=== PATIENT | female | born 1975 | race Caucasian/White ===

== ENCOUNTER 2016-10-03 16:18 | Emergency (ER) | payer OTHER ==
[~2016-10-03] VITALS: Ht 160 cm; Wt 39.0 kg
[~2016-10-03 16:18] MED LIST: MULTIVIT PO; OYST500T PO
[2016-10-03] MEDS ORDERED: MAGNESIUM OTC (16:46)
[2016-10-03 17:32] LABS: MEAN CORPUSCULAR HEMOGLOBIN 34.4 pg (27.0-33.0); MEAN CORPUSCULAR HGB CONC 33.6 g/dl (32.0-36.5); MEAN CORPUSCULAR VOLUME 102.3 fl (80.0-96.0); RED CELL DISTRIBUTION WIDTH 11.7 % (11.5-14.5); WHITE BLOOD COUNT 3.7 K/mm3 (4.0-10.0)
[2016-10-03 17:46] LABS: CONTROL LINE HCG INT CTR LINE PRESENT
[2016-10-03 17:48] LABS: MAGNESIUM LEVEL 2.3 MG/DL (1.8-2.4); PHOSPHORUS LEVEL 3.6 MG/DL (2.5-4.9)
[2016-10-03 17:50] LABS: METHADONE URINE NEGATIVE (NEGATIVE)
[2016-10-03 18:00] LABS: ALBUMIN 3.9 GM/DL (3.2-5.2); ALBUMIN/GLOBULIN RATIO 1.34 (1.00-1.93); ALKALINE PHOSPHATASE 64 U/L (45-117); ALT/SGPT 43 U/L (12-78); ANION GAP 6 MEQ/L (8-16); AST/SGOT 29 U/L (15-37); BILIRUBIN,DIRECT 0.1 MG/DL (0.0-0.2); BILIRUBIN,TOTAL 0.3 MG/DL (0.2-1.0); BLOOD UREA NITROGEN 6 MG/DL (7-18); CALCIUM LEVEL 8.7 MG/DL (8.5-10.1); CARBON DIOXIDE LEVEL 29 MEQ/L (21-32); CHLORIDE LEVEL 101 MEQ/L (98-107); CREATININE FOR GFR 0.52 MG/DL (0.55-1.02); GLOMERULAR FILTRATION RATE > 60.0 (>60); GLUCOSE, FASTING 76 MG/DL (70-105); POTASSIUM SERUM 4.5 MEQ/L (3.5-5.1); SODIUM LEVEL 136 MEQ/L (136-145); TOTAL PROTEIN 6.8 GM/DL (6.4-8.2)
[2016-10-03 21:16] VITALS: BP 108/63
== END 2016-10-03 21:17 | disposition home or self-care (01) ==
LOC: EDBD 16:18 → M ED 16:58
DX: F32.9 Major depressive disorder, single episode, unspecified (principal); M32.9 Systemic lupus erythematosus, unspecified; G89.29 Other chronic pain; Z79.899 Other long term (current) drug therapy
CPT/HCPCS: 36415; 80048; 80076; 80306; 83735; 84100; 84443; 84703; 85027; 99284; G0480

== ENCOUNTER → 2016-11-27 | Outpatient (CLI) | payer OTHER ==
[~2016-11-27] MED LIST changes: +MAGNESIUM OTC
--- NOTE | 2016-11-27 16:07 | REPMRS ---
Patient History The patient states she had a clinical breast exam in November 2016.Patient is postmenopausal. No known family history of cancer. Digital Mammo Screening Bilat: November 27, 2016 - Exam #: [id number] Bilateral CC and MLO view(s) were taken. Technologist: Sandy Hernandez, Technologist Prior study comparison: November 12, 2009, digital bilateral screening mammo, performed at [facility]. FINDINGS: The breast tissue is heterogeneously dense. This may lower the sensitivity of mammography. The breasts are smaller bilaterally than on the 2010 prior study consistent with interval weight loss. There is a moderate amount of heterogeneously dense fibroglandular tissue which is fairly symmetric. There is no interval development of dominant mass, architectural distortion, or clustered microcalcification typical of malignancy. There has been no change in the appearance of the mammogram from the prior studies. ASSESSMENT: BI-RADS/ACR category 1 mammogram. Negative. Recommendation Routine screening mammogram in 1 year (for women over age 40). This mammogram was interpreted with the aid of an FDA-approved computer-aided dectection system. Electronically Signed By: Alfredo Dean MD 11/27/16 [id number]
== END ==
LOC: M RAD 14:06
PROVIDERS: ATTEND Midwife
DX: Z12.31 Encounter for screening mammogram for malignant neoplasm of breast (principal)

== ENCOUNTER 2016-12-13 15:12 | Emergency (ER) | payer OTHER ==
[~2016-12-13] VITALS: Ht 160 cm; Wt 42.3 kg
[2016-12-13] MEDS ORDERED: MORPHINE 2 MG/ML 1ML SYRINGE IV ONE (16:15)
[2016-12-13] MEDS ORDERED: NS 500 ML IV ONE (16:15)
[2016-12-13 16:44] LABS: BASO # 0.1 K/mm3 (0.0-0.2); BASO % 0.8 % (0.0-1.0); EOS # 0.8 K/mm3 (0.0-0.50); EOS % 9.1 % (0.0-3.0); LARGE UNSTAINED CELL # 0.1 K/mm3 (0.0-0.4); LARGE UNSTAINED CELL % 0.8 % (0.0-4.0); LYMPH # 1.4 K/mm3 (1.5-4.5); LYMPH % 15.7 % (24.0-44.0); MEAN CORPUSCULAR HEMOGLOBIN 34.7 pg (27.0-33.0); MEAN CORPUSCULAR HGB CONC 34.2 g/dl (32.0-36.5); MEAN CORPUSCULAR VOLUME 101.6 fl (80.0-96.0); MONO # 0.3 K/mm3 (0.0-0.8); NEUTROPHILS # 5.9 K/mm3 (1.8-7.7); NEUTROPHILS % 69.7 % (36.0-66.0); PLATELET COUNT, AUTOMATED 268 k/mm3 (150-450); RED CELL DISTRIBUTION WIDTH 11.6 % (11.5-14.5); WHITE BLOOD COUNT 8.4 K/mm3 (4.0-10.0)
[2016-12-13 16:51] LABS: CONTROL LINE HCG INT CTR LINE PRESENT
[2016-12-13 17:00] LABS: ALBUMIN 3.7 GM/DL (3.2-5.2); ALBUMIN/GLOBULIN RATIO 1.37 (1.00-1.93); ALKALINE PHOSPHATASE 60 U/L (45-117); ALT/SGPT 43 U/L (12-78); ANION GAP 4 MEQ/L (8-16); AST/SGOT 20 U/L (15-37); BILIRUBIN,DIRECT < 0.1 MG/DL (0.0-0.2); BILIRUBIN,TOTAL 0.2 MG/DL (0.2-1.0); BLOOD UREA NITROGEN 11 MG/DL (7-18); CALCIUM LEVEL 8.9 MG/DL (8.5-10.1); CARBON DIOXIDE LEVEL 29 MEQ/L (21-32); CHLORIDE LEVEL 107 MEQ/L (98-107); CREATININE FOR GFR 0.46 MG/DL (0.55-1.02); GLOMERULAR FILTRATION RATE > 60.0 (>58); GLUCOSE, FASTING 99 MG/DL (70-105); POTASSIUM SERUM 4.6 MEQ/L (3.5-5.1); SODIUM LEVEL 140 MEQ/L (136-145); TOTAL PROTEIN 6.4 GM/DL (6.4-8.2)
[2016-12-13 17:01] LABS: INR 1.04
[2016-12-13] MEDS ORDERED: ISOVUE-370 76% 100ML VIAL (Q9967) As Ordered ONE (17:06)
[2016-12-13 17:13] LABS: METHADONE URINE NEGATIVE (NEGATIVE)
[2016-12-13] MEDS ORDERED: CITRSOL8 PO (17:49)
--- NOTE | 2016-12-13 17:51 | REP ---
CT abdomen and pelvis without IV but without oral contrast: History: Left lower quadrant abdominal pain. CT contrast dose: 92 mL of intravenous Isovue 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 The lung bases are essentially clear. There is no evidence of pleural effusion. The liver is mildly enlarged measuring 18.8 cm in vertical span in the midclavicular line. It is homogeneous. Spleen is normal in appearance. The main pancreatic duct is mildly dilated measuring 0.4 cm in diameter. No pancreatic mass or cyst is seen. The gallbladder is unremarkable. No adrenal lesion is seen. The kidneys enhance symmetrically are morphologically intact. There is moderate stool throughout the colon. The uterus is tipped to the right and somewhat retroverted. No adnexal abnormality is seen. Urinary bladder is intact. No free fluid is seen. Impression: Moderate stool content in the colon. No obstructive lesion seen. Mildly dilated main pancreatic duct without evidence of mass or cyst. Mildly enlarged liver. No other abnormality. Signed by Jd Dean MD 12/13/2016 06:21 P
[2016-12-13 17:58] VITALS: BP 97/56
[2016-12-13] MEDS ORDERED: MAGNESIUM CITRATE 300 ML BTL PO ONE (18:00)
== END 2016-12-13 18:27 | disposition home or self-care (01) ==
LOC: EDBD 15:12 → M ED 15:12
DX: K59.00 Constipation, unspecified (principal); R10.84 Generalized abdominal pain; F99 Mental disorder, not otherwise specified; F17.210 Nicotine dependence, cigarettes, uncomplicated
CPT/HCPCS: 74177; 80048; 80076; 80307; 81001; 82140; 83690; 84703; 85025; 85610; 85730; 87086; 93041; 94760; 96361; 96374; 99284; Q9967

== ENCOUNTER → 2017-01-12 | Outpatient (CLI) | payer OTHER ==
[~2017-01-12] MED LIST changes: +CITRSOL8 PO; +E-Z-GAS II EFFERVESCENT PACKET (SODIUM BICARB./CITRIC ACID/SIMETHICONE) As Ordered ONE; +E-Z-HD 98% w/w 340GM SUSP BTL As Ordered ONE; +E-Z-PAQUE 96% w/w SUSP 176GM BTL As Ordered ONE
--- NOTE | 2017-01-12 17:13 | REP ---
Upper GI air contrast and a small bowel follow-through. The procedure was performed under the direct supervision of Dr. Orozco. Liquid barium and gas producing crystals were given in the erect position as well as liquid barium in the prone oblique position in order to perform a double contrast upper GI examination. The oral and pharyngeal stages of deglutition are unremarkable. Esophageal transport is prompt and efficient and there is no esophagitis or stricture or or mucosal ring. There is a sliding type hiatal hernia as a . There is gastroesophageal reflux demonstrated to above the level of the clarita. The stomach mejia are normally outlined . The rugal folds are smooth and regular. There is no gastritis neoplasm or ulcer disease. The duodenal mejia are normally outlined . The mucosal folds are smooth and regular. There is no duodenitis pancreatitis peptic ulcer disease or neoplasm. The visualized portion of the proximal small bowel appears normal in course and caliber. The barium column was followed through the small bowel to the level of the terminal ileum. Small bowel transit time is approximately 2 hours. During fluoroscopy gentle palpation shows all loops are freely movable and pliable. There are no fixed or angulated loops. The small bowel mucosal pattern is normal in course and caliber. There is no transition to suggest a partial small-bowel obstruction. The cecum is mobile and lies in the mid pelvis. Spot filming of the terminal ileum shows it to be unremarkable. Impression: There is a sliding type hiatal hernia present. There is gastroesophageal reflux demonstrated to above the level of the clarita. The cecum is mobile and the terminal ileum is spotted in the midline of the abdomen. 56 seconds of fluoro time was utilized for this procedure. Reviewed by LINDA Armstrong 01/12/2017 04:55 PSigned by Adonis Orozco MD 01/12/2017 04:59 P
== END ==
LOC: M RAD 10:37
PROVIDERS: ATTEND Internal Medicine Gastroenterology
DX: R10.84 Generalized abdominal pain (principal); R10.817 Generalized abdominal tenderness; K21.9 Gastro-esophageal reflux disease without esophagitis; K44.9 Diaphragmatic hernia without obstruction or gangrene

== ENCOUNTER → 2017-01-31 | Outpatient (CLI) | payer OTHER ==
[~2017-01-31] MED LIST changes: -E-Z-GAS II EFFERVESCENT PACKET (SODIUM BICARB./CITRIC ACID/SIMETHICONE) As Ordered ONE; -E-Z-HD 98% w/w 340GM SUSP BTL As Ordered ONE; -E-Z-PAQUE 96% w/w SUSP 176GM BTL As Ordered ONE
--- NOTE | 2017-01-31 21:53 | REP ---
Clinical: Shortness of breath . Comparison: None . Technique: PA and lateral. Findings: The mediastinum and cardiac silhouette are normal. The lung carbajal suggest mild chronic changes without acute consolidation, effusion, or pneumothorax. The skeletal structures are intact and normal. Impression: 1. No acute cardiopulmonary process. 2. Cannot exclude mild chronic changes. Signed by Aurelio Guzman MD 01/31/2017 09:45 P
== END ==
LOC: M SMT 14:42
PROVIDERS: ATTEND Nurse Practitioner Adult Health
DX: R06.02 Shortness of breath (principal)

== ENCOUNTER 2017-05-02 11:15 | Day surgery (SDC) | payer OTHER ==
[~2017-05-02] VITALS: Ht 160 cm; Wt 44.9 kg
[~2017-05-02 11:15] MED LIST changes: +ACETAMINOPHEN 325 MG SUPP As Ordered ONE; +LIDOCAINE 2% INJ 100 MG/5 ML SDV (FOR ANES.) As Ordered ONE; +PROPOFOL 200 MG/20 ML VIAL As Ordered ONE; +fentaNYL 100 MCG/2 ML INJECTION (J3010) As Ordered ONE
[2017-05-02] MEDS ORDERED: NS 1,000 ML IV ONE (11:30)
--- NOTE | 2017-05-02 12:46 | ROOR ---
Patient Name: Jocelin Schneider Procedure Date: 05/02/2017 12:12 PM Date of : 1975 Age: 41 Room: [facility] Gender: Female Note Status: Finalized Procedure: Upper GI endoscopy Indications: Generalized abdominal pain Providers: DO Alexsander Khan MD: BRAD SALINAS MD Requesting Provider: Medicines: Propofol per Anesthesia Complications: No immediate complications. Estimated blood loss: Minimal. Procedure: Pre-Anesthesia Assessment: - Prior to the procedure, a History and Physical was performed, and patient medications and allergies were reviewed. The patient is competent. The risks and benefits of the procedure and the sedation options and risks were discussed with the patient. All questions were answered and informed consent was obtained. Patient identification and proposed procedure were verified by the physician, the nurse, the anesthesiologist and the performing arts technicians in the endoscopy suite. Mental Status Examination: alert and oriented. Airway Examination: normal oropharyngeal airway and neck mobility. Respiratory Examination: clear to auscultation. CV Examination: normal. Prophylactic Antibiotics: The patient does not require prophylactic antibiotics. Prior Anticoagulants: The patient has taken no previous anticoagulant or antiplatelet agents. ASA Grade Assessment: II - A patient with mild systemic disease. After reviewing the risks and benefits, the patient was deemed in satisfactory condition to undergo the procedure. The anesthesia plan was to use monitored anesthesia care (MAC). Immediately prior to administration of medications, the patient was re-assessed for adequacy to receive sedatives. The heart rate, respiratory rate, oxygen saturations, blood pressure, adequacy of pulmonary ventilation, and response to care were monitored throughout the procedure. The physical status of the patient was re-assessed after the procedure. The Endoscope was introduced through the mouth, and advanced to the third part of duodenum. The upper GI endoscopy was accomplished without difficulty. The patient tolerated the procedure well. Findings: The Z-line was irregular. Biopsies were taken with a cold forceps for histology. Estimated blood loss was minimal. Diffuse moderate inflammation characterized by adherent blood, congestion (edema), erythema and linear erosions was found in the entire examined stomach. Biopsies were taken with a cold forceps for Helicobacter pylori testing. Estimated blood loss was minimal. Diffuse and localized mild inflammation characterized by congestion (edema) and erythema was found in the entire duodenum. The exam was otherwise without abnormality. Impression: - Z-line irregular. Biopsied. - Gastritis. Biopsied. - Duodenitis. - The examination was otherwise normal. Recommendation: - Patient has a contact number available for emergencies. The signs and symptoms of potential delayed complications were discussed with the patient. Return to normal activities tomorrow. Written discharge instructions were provided to the patient. - Telephone my office for pathology results in 1 week. Adonis Mcdermott DO 05/02/2017 12:45:58 PM This report has been signed electronically. Number of Addenda: 0 Note Initiated On: 05/02/2017 12:12 PM Estimated Blood Loss: Estimated blood loss: none.
--- NOTE | 2017-05-02 12:48 | ROOR ---
Patient Name: Jocelin Schneider Procedure Date: 05/02/2017 12:13 PM Date of : 1975 Age: 41 Room: [facility] Gender: Female Note Status: Finalized Procedure: Colonoscopy Indications: Generalized abdominal pain Providers: DO Alexsander Khan MD: BRAD SALINAS MD Requesting Provider: Medicines: Propofol per Anesthesia Complications: No immediate complications. Procedure: Pre-Anesthesia Assessment: - Prior to the procedure, a History and Physical was performed, and patient medications and allergies were reviewed. The patient is competent. The risks and benefits of the procedure and the sedation options and risks were discussed with the patient. All questions were answered and informed consent was obtained. Patient identification and proposed procedure were verified by the physician, the nurse, the anesthesiologist and the blood or blood bank technician in the endoscopy suite. Mental Status Examination: alert and oriented. Airway Examination: normal oropharyngeal airway and neck mobility. Respiratory Examination: clear to auscultation. CV Examination: normal. Prophylactic Antibiotics: The patient does not require prophylactic antibiotics. Prior Anticoagulants: The patient has taken no previous anticoagulant or antiplatelet agents. ASA Grade Assessment: II - A patient with mild systemic disease. After reviewing the risks and benefits, the patient was deemed in satisfactory condition to undergo the procedure. The anesthesia plan was to use monitored anesthesia care (MAC). Immediately prior to administration of medications, the patient was re-assessed for adequacy to receive sedatives. The heart rate, respiratory rate, oxygen saturations, blood pressure, adequacy of pulmonary ventilation, and response to care were monitored throughout the procedure. The physical status of the patient was re-assessed after the procedure. The Colonoscope was introduced through the anus and advanced to the cecum, identified by the appendiceal orifice, ileocecal valve and palpation. The colonoscopy was technically difficult and complex due to poor bowel prep with stool present. The patient tolerated the procedure well. Findings: A large amount of liquid stool was found in the entire colon, interfering with visualization. The exam was otherwise without abnormality on direct and retroflexion views. Impression: - Stool in the entire examined colon. - The examination was otherwise normal on direct and retroflexion views. - No specimens collected. Recommendation: - Patient has a contact number available for emergencies. The signs and symptoms of potential delayed complications were discussed with the patient. Return to normal activities tomorrow. Written discharge instructions were provided to the patient. - Repeat colonoscopy in 1 month because the bowel preparation was poor. - Return to my office PRN. Adonis Mcdermott DO 05/02/2017 12:48:19 PM This report has been signed electronically. Number of Addenda: 0 Note Initiated On: 05/02/2017 12:13 PM Estimated Blood Loss: Estimated blood loss: none.
[2017-05-02 13:06] VITALS: BP 109/60
== END 2017-05-02 13:10 | disposition home or self-care (01) ==
LOC: M OPP 11:15
PROVIDERS: ATTEND Surgery
DX: R10.84 Generalized abdominal pain (principal); R19.5 Other fecal abnormalities; R19.7 Diarrhea, unspecified; K22.9 Disease of esophagus, unspecified; K29.70 Gastritis, unspecified, without bleeding; K29.80 Duodenitis without bleeding; R14.0 Abdominal distension (gaseous); K58.0 Irritable bowel syndrome with diarrhea; K44.9 Diaphragmatic hernia without obstruction or gangrene; M19.90 Unspecified osteoarthritis, unspecified site; G60.0 Hereditary motor and sensory neuropathy; F17.210 Nicotine dependence, cigarettes, uncomplicated
CPT/HCPCS: 43239; 45378; 88305; J3010

== ENCOUNTER → 2017-08-17 | Outpatient (CLI) | payer OTHER | LOC: M RAD 07:35 | DX: R14.0 Abdominal distension (gaseous) (principal); R11.0 Nausea; K31.84 Gastroparesis | CPT/HCPCS: 78264 ==

== ENCOUNTER → 2017-08-27 | Outpatient (CLI) | payer OTHER | LOC: M RAD 12:36 | DX: Z53.8 Procedure and treatment not carried out for other reasons (principal) ==

== ENCOUNTER → 2017-09-19 | Outpatient (CLI) | payer OTHER ==
[~2017-09-19] MED LIST changes: -ACETAMINOPHEN 325 MG SUPP As Ordered ONE; -CITRSOL8 PO; -LIDOCAINE 2% INJ 100 MG/5 ML SDV (FOR ANES.) As Ordered ONE; -MAGNESIUM OTC; -MULTIVIT PO; -OYST500T PO; +PROHANCE 279.3MG/ML 5ML VIAL (A9576) As Ordered; -PROPOFOL 200 MG/20 ML VIAL As Ordered ONE; -fentaNYL 100 MCG/2 ML INJECTION (J3010) As Ordered ONE
== END ==
LOC: M RAD 17:43
DX: G60.9 Hereditary and idiopathic neuropathy, unspecified (principal)

== ENCOUNTER 2017-09-21 12:37 | Day surgery (SDC) | payer OTHER ==
[2017-09-21] MEDS ORDERED: NS 1,000 ML IV (12:45)
[2017-09-21] MEDS ORDERED: LIDOCAINE 2% INJ 100 MG/5 ML SDV (FOR ANES.) As Ordered (13:08)
[2017-09-21] MEDS ORDERED: PROPOFOL 200 MG/20 ML VIAL As Ordered ×2 (13:08→14:39)
[2017-09-21] MEDS ORDERED: fentaNYL 100 MCG/2 ML INJECTION (J3010) As Ordered (13:08)
== END 2017-09-21 15:50 | disposition home or self-care (01) ==
LOC: M OPP 12:37
DX: K59.00 Constipation, unspecified (principal); K22.8 Other specified diseases of esophagus; K31.4 Gastric diverticulum; R14.0 Abdominal distension (gaseous); R19.7 Diarrhea, unspecified; R68.81 Early satiety; G60.0 Hereditary motor and sensory neuropathy; F17.210 Nicotine dependence, cigarettes, uncomplicated
CPT/HCPCS: 45378

== ENCOUNTER → 2017-09-24 | Outpatient (CLI) | payer OTHER | LOC: M RAD 16:24 | DX: G37.9 Demyelinating disease of central nervous system, unspecified (principal); M50.322 Other cervical disc degeneration at C5-C6 level; M51.26 Other intervertebral disc displacement, lumbar region; R53.83 Other fatigue | CPT/HCPCS: A9576 ==

== ENCOUNTER → 2018-01-03 | Outpatient (CLI) | payer OTHER ==
[~2018-01-03] MED LIST changes: +GASTROGRAFIN SOLUTION 30ML (Q9963) As Ordered; -PROHANCE 279.3MG/ML 5ML VIAL (A9576) As Ordered
== END ==
LOC: M RAD 07:33
DX: R63.4 Abnormal weight loss (principal); N20.0 Calculus of kidney; D75.89 Other specified diseases of blood and blood-forming organs; J84.10 Pulmonary fibrosis, unspecified
CPT/HCPCS: Q9963

== ENCOUNTER 2019-03-04 18:44 | Inpatient (IN) | payer OTHER ==
[~2019-03-04] VITALS: Ht 160 cm; Wt 38.2 kg
[~2019-03-04 18:44] MED LIST changes: -AZIT-12 PO; -GNPLIQ60 PO; -SPIR1CAP INH; -VENTAER INH; -nyquil
[2019-03-04] MEDS ORDERED: nyquil (18:56)
[2019-03-04] MEDS ORDERED: AZITHROMYCIN INJ 500 MG, VIAL MATE ADAPTER 1 EACH in D5W 250 ML IV ONE (19:15)
[2019-03-04] MEDS ORDERED: IPRATROPIUM 0.5MG/ALBUTEROL 2.5MG INH SOL UD 3ML (DUONEB)(J7620) NEB PRN (19:15)
[2019-03-04] MEDS ORDERED: ACETAMINOPHEN 325 MG TAB PO ONE (19:15)
[2019-03-04] MEDS ORDERED: cefTRIAXone SOD 1 GM in D5W MINI-BAG PLUS 50 ML IV ONE (19:15)
[2019-03-04] MEDS ORDERED: NS 1,000 ML IV ONE (19:15)
[2019-03-04] MEDS ORDERED: GNPLIQ60 PO (19:38)
[2019-03-04 19:39] LABS: ABG BASE EXCESS 3.4 (-2.0-2.0); ABG O2 SATURATION 95.7 % (95.0-99.0); ABG PARTIAL PRESSURE O2 69.6 mmHg (75.0-100.0); ABG STANDARD HCO3 27.5 MEQ/L (22.0-26.0); ABG TOTAL CO2 27.1 MEQ/L (22.0-29.0); ABG pH (ARTERIAL) 7.515 UNITS (7.350-7.450)
[2019-03-04 19:55] LABS: BASO % 0.3 % (0.0-1.0); HEMATOCRIT 35.1 % (36.0-47.0); HEMOGLOBIN 11.9 g/dl (12.0-15.5); LYMPH # 0.8 10^3/uL (1.5-5.0); LYMPH % 5.4 % (24.0-44.0); MEAN CORPUSCULAR HEMOGLOBIN 34.1 pg (27.0-33.0); MEAN CORPUSCULAR HGB CONC 33.9 g/dl (32.0-36.5); MEAN CORPUSCULAR VOLUME 100.6 fl (80.0-96.0); MONO # 0.4 10^3/uL (0.0-0.8); MONO % 2.3 % (0.0-5.0); NEUTROPHILS % 91.2 % (36.0-66.0); PLATELET COUNT, AUTOMATED 647 10^3/uL (150-450); RED BLOOD COUNT 3.49 10^6/uL (4.00-5.40); WHITE BLOOD COUNT 15.3 10^3/uL (4.0-10.0)
--- NOTE | 2019-03-04 20:02 | REP ---
PA and lateral chest: Comparisons are 01/31/2017 and the study performed earlier this same date. There are bibasilar infiltrates, unchanged from the study performed earlier today. There are bilateral pleural effusions, unchanged from study earlier today. The mid and upper lung zones are clear and unchanged. Cardiac size is normal. The iris, mediastinum, skeletal structures are unremarkable. Impression: Bibasilar infiltrates and bilateral pleural effusions Electronically Signed by Adonis Torres MD 03/04/2019 07:53 P
[2019-03-04 20:06] LABS: INR 1.2; PROTHROMBIN TIME 14.9 SECONDS (11.8-14.0)
[2019-03-04 20:18] LABS: ALT/SGPT 25 U/L (12-78); BILIRUBIN,DIRECT 0.2 MG/DL (0.0-0.2); BILIRUBIN,TOTAL 0.4 MG/DL (0.2-1.0); BLOOD UREA NITROGEN 7 MG/DL (7-18); CALCIUM LEVEL 8.5 MG/DL (8.5-10.1); CARBON DIOXIDE LEVEL 32 MEQ/L (21-32); CHLORIDE LEVEL 104 MEQ/L (98-107); CREATININE FOR GFR 0.32 MG/DL (0.55-1.30); GLOMERULAR FILTRATION RATE > 60.0 (>58); GLUCOSE, FASTING 69 MG/DL (70-100); POTASSIUM SERUM 3.2 MEQ/L (3.5-5.1); SODIUM LEVEL 142 MEQ/L (136-145); TOTAL PROTEIN 5.9 GM/DL (6.4-8.2)
[2019-03-04] MEDS ORDERED: ACETAMINOPHEN TAB 650MG DOSE (2X325MG) PO PRN (20:45)
--- NOTE | 2019-03-04 21:24 | HPEPDOC ---
[facility] Medical History & Physical Date of Admission Mar 04, 2019 Date of Service: Mar 04, 2019 Attending Physician: MATTY NEWMAN MD History and Physical TIME OF SERVICE: 845pm CHIEF COMPLAINT: Sent from urgent care clinic HISTORY OF PRESENT ILLNESS: This is a 49-year-old female who was sent to the hospital for further evaluation after presenting to the urgent care clinic with complaints of feeling sick for a few weeks; specifically, she has had a dry cough, relapsing remitting fevers and chills, and muscle aches. She denies having chest pain, denies having abdominal pain, denies having diarrhea, denies having constipation. 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 HOME MEDICATIONS: Please see below. PHYSICAL EXAMINATION: VITAL SIGNS: Please see below. GENERAL APPEARANCE: , cachectic, appears chronically ill, slightly anxious HEENT: normocephalic, atraumatic, mucus membranes dry CARDIOVASCULAR: Heart rate ranging from 92-99. There are no murmurs, rubs or gallops. Pulses are intact. Extremities are warm and well-perfused. There is no lower extremity edema LUNGS: She is using accessory muscles to breathe. She is able to speak full sentences without having to stop to take a breath. There are decreased breath sounds bilaterally ABDOMEN: scaphoid, MUSCULOSKELETAL: range of motion is intact in all 4 extremities. Patient is able to walk on her own without assistance INTEGUMENT: lanugo covering the face and the arms, has multiple tattoos on the arms and chest NEUROLOGICAL: cranial nerves II-12 are grossly intact. Speech is not dysarthric PSYCHIATRIC: alert and oriented to person, place and time, able to understand and follow commands LABORATORY DATA: See below. IMAGING: Chest x-ray " Impression: Bibasilar infiltrates and bilateral pleural effusions" MICROBIOLOGY: Please see below. 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 PLAN: 1. Sepsis 2/2 pneumonia SIRS criteria include fever, tachycardia, tachypnea and elevated WBC count Lactic acid within normal limits ABG shows a low PO2 Chest x-ray as shows bilateral pneumonia with bilateral pleural infiltrates -NEW2S Score equals 8 points = high risk / requires continuos monitoring -PORT/PSI Score to predict risk of mortality in pt w CAP = 52 points = risk class II Plan: admit to ICU / telemetry / continuos pulse ox & supplemental O2 / Sepsis protocol /continue with Rocephin and azithromycin/ c/w IVF /f/u flu panel, drug screen, blood cx, strep pneumo, legionella, sputum Cx /tessalon pearls / Acetaminophen PRN for fever / will need vaccines prior to discharge 2. Anemia Likely multifactorial in nature MCV greater than 100, hemoglobin 11.9 differential diagnosis for macrocytosis includes: B12 deficiency, Alcohol, Liver disorders, Hypothyrodism, Erythropoesis, Aplastic Anemia, Pure Red Cell Aplasia, Fanconi anemia, Folate deficiency, MDS Plan: Follow-up CBC, TSH, B12, RBC folate, thiamine 3. Thrombocytosis. differential diagnosis includes: iron deficiency, inflammatory dz, chronic infection or myeloproliferative disorder Plan: f/u CBC & iron panel 4. Hypokalemia. Plan: Repeat potassium and follow-up magnesium 5. Tobacco Abuse Plan: Tobacco cessation education/declined nicotine patch 6. Low BMI. BMI 14.7 Plan: Follow-up prealbumin/dietitian consult / f/u drug screen Debau Prediction Score to determine need for AC in hospitalized pts = 0 points = SCDs Disposition pending clinical course Vital Signs Vital Signs Date Time Temp Pulse Resp B/P (MAP) Pulse Ox O2 Delivery O2 Flow Rate FiO2 03/04/19 20:41 105 03/04/19 20:00 116/65 (82) 94 Room Air 03/04/19 19:22 95 03/04/19 18:44 100.8 28 Laboratory Data Labs 24H Laboratory Tests 2 03/04/19 19:29: Immature Granulocyte % (Auto) 0.8, White Blood Count 15.3H, Red Blood Count 3.49L, Hemoglobin 11.9L, Hematocrit 35.1L, Mean Corpuscular Volume 100.6H, Mean Corpuscular Hemoglobin 34.1H, Mean Corpuscular Hemoglobin Concent 33.9, Red Cell Distribution Width 12.2, Platelet Count 647H, Neutrophils (%) (Auto) 91.2H, Lymphocytes (%) (Auto) 5.4L, Monocytes (%) (Auto) 2.3, Eosinophils (%) (Auto) 0.0, Basophils (%) (Auto) 0.3, Neutrophils # (Auto) 14.0H, Lymphocytes # (Auto) 0.8L, Monocytes # (Auto) 0.4, Eosinophils # (Auto) 0.0, Basophils # (Auto) 0.0, Nucleated Red Blood Cells % (auto) 0.0, Prothrombin Time 14.9H, Prothromb Time International Ratio 1.20, Blood Gas Bicarbonate Standard 27.5H, Arterial Blood pH 7.515H, Arterial Blood Partial Pressure CO2 33.0L, Arterial Blood Partial Pressure O2 69.6L, Arterial Blood Total CO2 27.1, Arterial Blood HCO3 26.0, Arterial Blood Base Excess 3.4H, Arterial Blood Oxygen Saturation 95.7, Anion Gap 6L, Glomerular Filtration Rate > 60.0, Lactic Acid Level 1.6, Calcium Level 8.5, Aspartate Amino Transf (AST/SGOT) 12, Alanine Aminotransferase (ALT/SGPT) 25, Alkaline Phosphatase 88, Total Bilirubin 0.4, Direct Bilirubin 0.2, Total Protein 5.9L, Albumin 2.0L, Albumin/Globulin Ratio 0.51L CBC/BMP Laboratory Tests 03/04/19 19:29 Red Blood Count 3.49 L, Mean Corpuscular Volume 100.6 H, Mean Corpuscular Hemoglobin 34.1 H, Mean Corpuscular Hemoglobin Concent 33.9, Red Cell Distribution Width 12.2, Neutrophils (%) (Auto) 91.2 H, Lymphocytes (%) (Auto) 5.4 L, Monocytes (%) (Auto) 2.3, Eosinophils (%) (Auto) 0.0, Basophils (%) (Auto) 0.3, Neutrophils # (Auto) 14.0 H, Lymphocytes # (Auto) 0.8 L, Monocytes # (Auto) 0.4, Eosinophils # (Auto) 0.0, Basophils # (Auto) 0.0 Microbiology Microbiology 03/04/19 Blood Culture, Received Pending 03/04/19 Blood Culture, Received Pending Home Medications Scheduled PRN Dm/Acetaminophen/Doxylamine (Night Time Cold-Flu Liquid) 355 Ml Liquid, 1 LIQ PO QHS PRN for COLD SYMPTOMS Allergies Coded Allergies: No Known Allergies (Unverified , 03/04/19) A-FIB/CHADSVASC A-FIB History Current/History of A-Fib/PAF?: No Current PO Anticoag Therapy: No MATTY NEWMAN MD Mar 04, 2019 21:24
[2019-03-04] MEDS ORDERED: KCL 20MEQ IN 100ML SWI (KRUN) 20 MEQ in IV 1 EA IV ONE ×2 (21:30)
[2019-03-04 21:40] LABS: INFLUENZA A AMPLIFICATION NEGATIVE (NEGATIVE); INFLUENZA B AMPLIFICATION NEGATIVE (NEGATIVE)
[2019-03-04 21:41] LABS: PREALBUMIN 11.4 MG/DL (20.0-40.0)
[2019-03-04 21:44] LABS: AMPHETAMINES LEVEL URINE NEGATIVE (NEGATIVE); BARBITURATES URINE NEGATIVE (NEGATIVE); BENZODIAZEPINES URINE NEGATIVE (NEGATIVE); CANNABINOIDS URINE NEGATIVE (NEGATIVE); COCAINE METABOLITE URINE NEGATIVE (NEGATIVE); METHADONE URINE NEGATIVE (NEGATIVE); OPIATES URINE NEGATIVE (NEGATIVE); PHENCYCLIDINE URINE NEGATIVE (NEGATIVE)
[2019-03-04 21:58] LABS: MAGNESIUM LEVEL 2.2 MG/DL (1.8-2.4)
[2019-03-04] MEDS: POTASSIUM CHLORIDE 10 MEQ SR TABLET PO SCH (22:51)
[2019-03-04] MEDS: KCL 10MEQ/100ML SWI (KRUN) 100 ML IV SCH ×2 (22:51→23:49)
[2019-03-04] MEDS: BENZONATATE 100 MG CAP PO SCH (22:51)
[2019-03-04 23:30] VITALS: BP 118/67
[2019-03-05] VITALS (9 sets, daily range): BP systolic 93–115; BP diastolic 51–73; O2SAT 94–96
[2019-03-05] MEDS: NS 1,000 ML IV SCH ×3 (00:17→22:11)
[2019-03-05] MEDS: POTASSIUM CHLORIDE 10 MEQ SR TABLET PO SCH ×2 (01:55→06:21)
[2019-03-05 04:45] LABS: HEMATOCRIT 31.2 % (36.0-47.0); HEMATOCRIT 31.8 % (36.0-47.0); HEMOGLOBIN 10.4 g/dl (12.0-15.5); MEAN CORPUSCULAR HEMOGLOBIN 33.5 pg (27.0-33.0); MEAN CORPUSCULAR HGB CONC 33.3 g/dl (32.0-36.5); MEAN CORPUSCULAR VOLUME 100.6 fl (80.0-96.0); PLATELET COUNT, AUTOMATED 568 10^3/uL (150-450); WHITE BLOOD COUNT 9.1 10^3/uL (4.0-10.0)
[2019-03-05 06:07] LABS: BLOOD UREA NITROGEN 5 MG/DL (7-18); CALCIUM LEVEL 7.5 MG/DL (8.5-10.1); CARBON DIOXIDE LEVEL 29 MEQ/L (21-32); CHLORIDE LEVEL 109 MEQ/L (98-107); CREATININE FOR GFR 0.23 MG/DL (0.55-1.30); FERRITIN 255 NG/ML (8-252); GLOMERULAR FILTRATION RATE > 60.0 (>58); GLUCOSE, FASTING 66 MG/DL (70-100); IRON (FE) 21 UG/DL (50-170); MAGNESIUM LEVEL 2.1 MG/DL (1.8-2.4); PERCENT SATURATION 14.4 % (13.2-45.0); POTASSIUM SERUM 3.9 MEQ/L (3.5-5.1); SODIUM LEVEL 144 MEQ/L (136-145); TOTAL IRON BINDING CAPACITY 146 UG/DL (250-450)
[2019-03-05] MEDS: BENZONATATE 100 MG CAP PO SCH ×3 (06:21→21:02)
--- NOTE | 2019-03-05 07:38 | ECGEPIP ---
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
[2019-03-05] MEDS: cefTRIAXone SOD 2 GM in D5W MINI-BAG PLUS 50 ML IV SCH (08:10)
[2019-03-05 08:35] LABS: VITAMIN B12 LEVEL > 2000 PG/ML (247-911)
--- NOTE | 2019-03-05 17:19 | IPNPDOC ---
Date Seen The patient was seen on 03/05/19. Progress Note SUBJECTIVE: Patient was seen and examined this morning at bedside. She currently denies any shortness of breath. She states she has a cough which began approximately 1 week ago. She states that she still has a cough today. She denies any sputum production. She does state that she had chills and for the past week on and off. She was febrile on presentation in the ER, however, has been afebrile since that time. Patient voices that she does not want to stay in the hospital, though understands that she does need treatment. OBJECTIVE PHYSICAL EXAMINATION: VITAL SIGNS: Please see below. GENERAL: Awake, alert and oriented, sitting up comfortably in bed, appears in no acute distress. Patient appears cachectic. Patient has multiple tattoos HEENT:. Atraumatic, normocephalic. Eyes nonicteric. Trachea is midline CARDIOVASCULAR: Normal S1, S2, regular rate and rhythm. No clicks, rubs or murmurs. RESPIRATORY: Clear vesicular breath sounds bilaterally. She has a prolonged expiratory phase. No audible wheezing, rhonchi or rales. There is no dullness to percussion. There is no clubbing or cyanosis of the nailbeds ABDOMINAL: Soft, nondistended, nontender to palpation all 4 quadrants. No reboun d tenderness or guarding. Normoactive bowel sounds EXTREMITIES:. No edema, 2+ posterior tibial pulses 2+ radial pulses bilaterally NEUROLOGICAL:. No focal neurological deficits PSYCHOLOGICAL: Mood and affect appear appropriate LABORATORY DATA, IMAGING STUDIES, MICROBIOLOGY: Please see below. DVT prophylaxis ordered?: Mechanical DVT prophylaxis ASSESSMENT AND PLAN: Patient is a 43-year-old female with an extensive medical history for COPD, anemia of chronic disease of unknown etiology, gastroparesis, and hereditary neuropathy with pressure palsy who presented to the [facility] ER after being evaluated at an urgent care for feeling "sick for a few weeks." Patient had admitted to a dry cough with relapsing and remitting fevers and chills and muscle aches. She was admitted and started on IV antibiotics and IV fluids. PROBLEMS: 1. Sepsis secondary to pneumonia: -Presentation, patient had fever, tachycardia, tachypnea and elevated white blood cell count. Her lactic acid time was within normal limits. The patient received a chest x-ray which demonstrated bilateral pleural infiltrates. She receives ceftriaxone and azithromycin. -Patient currently continues to have a cough, however, remains afebrile. She does not has increased by mouth production. However, a respiratory panel has b een ordered. Patient has been downgraded from ICU. She is currently on room air. We'll continue with Rocephin, azithromycin. -Blood cultures are currently pending. 2. Macrocytic anemia: -Patient has a MCV greater than 100. She does have anemia with a hemoglobin of 10.4 today. Patient states that she has been evaluated for anemia in the past. However, is no discernible cause. Her vitamin B12 was ordered, which is not sufficient. Her RBC folate is currently pending. -Possible causes of macrocytic anemia include folate, vitamin B-12 deficiency. Alcohol abuse, liver disease or hypothyroidism. -Patient has had iron studies ordered. However, she has a macrocytic anemia , not a microcytic. Her picture is likely a anemia of chronic disease. 3. Thrombocytosis -Patient has. Elevated platelets. She also has a macrocytic anemia, which could correlate with a possible myeloproliferative disorder 4. Hypokalemia -Will continue to monitor and replace as necessary 5. . Tobacco abuse -Patient has been counseled on tobacco cessation. 6. Malnutrition -Patient is a BMI 15.9. A dietary consult has been ordered. I saw and evaluated the patient. I agree with the findings and plan of care as documented in the above note Patient immediately threatened to leave hospital AGAINST MEDICAL ADVICE she required several readings throughout the day from numerous medical providers an effort to better explain answer all questions her satisfaction necessity for her to remain hospitalized. For the time being she is agreeable. She states she hates doctors and was only forced presented to the emergency room by her case consultant otherwise she has no desire to be hospitalized to be evaluated further at this time or in the future VS, I&O, 24H, Fishbone Vital Signs/I&O Vital Signs Date Time Temp Pulse Resp B/P (MAP) Pulse Ox O2 Delivery O2 Flow Rate FiO2 03/05/19 10:00 96 Room Air 03/05/19 08:10 98.7 03/05/19 04:00 76 100/51 (67) 85 93/55 (68) 84 95/63 (74) 03/05/19 04:00 20 03/04/19 19:22 95 I&O- Last 24 Hours up to 6 AM 03/05/19 06:00 Intake Total 2705 ml Output Total 2500 ml Balance 205 ml Laboratory Data 24H LABS Laboratory Tests 2 03/04/19 19:29: Immature Granulocyte % (Auto) 0.8, White Blood Count 15.3H, Red Blood Count 3.49L, Hemoglobin 11.9L, Hematocrit 35.1L, Mean Corpuscular Volume 100.6H, Mean Corpuscular Hemoglobin 34.1H, Mean Corpuscular Hemoglobin Concent 33.9, Red Cell Distribution Width 12.2, Platelet Count 647H, Neutrophils (%) (Auto) 91.2H, Lymphocytes (%) (Auto) 5.4L, Monocytes (%) (Auto) 2.3, Eosinophils (%) (Auto) 0.0, Basophils (%) (Auto) 0.3, Neutrophils # (Auto) 14.0H, Lymphocytes # (Auto) 0.8L, Monocytes # (Auto) 0.4, Eosinophils # (Auto) 0.0, Basophils # (Auto) 0.0, Nucleated Red Blood Cells % (auto) 0.0, Prothrombin Time 14.9H, Prothromb Time International Ratio 1.20, Blood Gas Bicarbonate Standard 27.5H, Arterial Blood pH 7.515H, Arterial Blood Partial Pressure CO2 33.0L, Arterial Blood Partial Pressure O2 69.6L, Arterial Blood Total CO2 27.1, Arterial Blood HCO3 26.0, Arterial Blood Base Excess 3.4H, Arterial Blood Oxygen Saturation 95.7, Anion Gap 6L, Glomerular Filtration Rate > 60.0, Lactic Acid Level 1.6, Calcium Level 8.5, Magnesium Level 2.2, Aspartate Amino Transf (AST/SGOT) 12, Alanine Ami notransferase (ALT/SGPT) 25, Alkaline Phosphatase 88, Total Bilirubin 0.4, Direct Bilirubin 0.2, Total Protein 5.9L, Albumin 2.0L, Albumin/Globulin Ratio 0.51L, Prealbumin 11.4L 03/04/19 20:55: Influenza Type A (RT-PCR) NEGATIVE, Influenza Type B (RT-PCR) NEGATIVE, Respiratory Syncytial Virus (RT-PCR NEGATIVE 03/04/19 21:09: Urine Amphetamines Screen NEGATIVE, Urine Benzodiazepines Screen NEGATIVE, Urine Opiates Screen NEGATIVE, Urine Methadone Screen NEGATIVE, Urine Barbiturates Screen NEGATIVE, Urine Phencyclidine Screen NEGATIVE, Urine Cocaine Metabolite Screen NEGATIVE, Urine Cannabinoids Screen NEGATIVE 03/05/19 01:56: Bedside Glucose (Misc Panel) 108H 03/05/19 04:38: Nucleated Red Blood Cells % (auto) 0.0, Anion Gap 6L, Glomerular Filtration Rate > 60.0, Blood Urea Nitrogen 5L, Creatinine 0.23L, Sodium Level 144, Potassium Level 3.9#, Chloride Level 109H, Carbon Dioxide Level 29, Calcium Level 7.5L, Magnesium Level 2.1, Iron Level 21L, Total Iron Binding Capacity 146L, Transferrin % Saturation 14.4, Ferritin 255H, Vitamin B12 Level > 2000H CBC/BMP Laboratory Tests 03/04/19 19:29 Red Blood Count 3.49 L, Mean Corpuscular Volume 100.6 H, Mean Corpuscular Hemoglobin 34.1 H, Mean Corpuscular Hemoglobin Concent 33.9, Red Cell Distribution Width 12.2, Neutrophils (%) (Auto) 91.2 H, Lymphocytes (%) (Auto) 5.4 L, Monocytes (%) (Auto) 2.3, Eosinophils (%) (Auto) 0.0, Basophils (%) (Auto) 0.3, Neutrophils # (Auto) 14.0 H, Lymphocytes # (Auto) 0.8 L, Monocytes # (Auto) 0.4, Eosinophils # (Auto) 0.0, Basophils # (Auto) 0.0 03/05/19 04:38 Red Blood Count 3.10 L, Mean Corpuscular Volume 100.6 H, Mean Corpuscular Hemoglobin 33.5 H, Mean Corpuscular Hemoglobin Concent 33.3, Red Cell Distribution Width 12.2, Calcium Level 7.5 L Microbiology Microbiology 03/04/19 Respiratory Virus Panel (PCR) ([facility]) - Final, Complete 03/04/19 Blood Culture, Received Pending 03/04/19 Blood Culture, Received Pending SHERLEY ADAMS DO Mar 05, 2019 17:19 DORYS WYNNE MD Mar 06, 2019 10:57
[2019-03-05] MEDS ORDERED: AZITHROMYCIN INJ 500 MG, VIAL MATE ADAPTER 1 EACH in D5W 250 ML IV SCH (21:00)
[2019-03-06] MEDS: BENZONATATE 100 MG CAP PO SCH (05:07)
[2019-03-06] MEDS: NS 1,000 ML IV SCH (05:07)
[2019-03-06 06:00] VITALS: BP 109/63
[2019-03-06 07:42] LABS: HEMATOCRIT 35.1 % (36.0-47.0); HEMOGLOBIN 11.5 g/dl (12.0-15.5); MEAN CORPUSCULAR HEMOGLOBIN 33.5 pg (27.0-33.0); MEAN CORPUSCULAR HGB CONC 32.8 g/dl (32.0-36.5); MEAN CORPUSCULAR VOLUME 102.3 fl (80.0-96.0); PLATELET COUNT, AUTOMATED 686 10^3/uL (150-450); RED BLOOD COUNT 3.43 10^6/uL (4.00-5.40); WHITE BLOOD COUNT 6.4 10^3/uL (4.0-10.0)
[2019-03-06 08:05] LABS: BLOOD UREA NITROGEN 4 MG/DL (7-18); CALCIUM LEVEL 8.4 MG/DL (8.5-10.1); CARBON DIOXIDE LEVEL 29 MEQ/L (21-32); CHLORIDE LEVEL 108 MEQ/L (98-107); CREATININE FOR GFR 0.33 MG/DL (0.55-1.30); GLOMERULAR FILTRATION RATE > 60.0 (>58); GLUCOSE, FASTING 79 MG/DL (70-100); POTASSIUM SERUM 4.3 MEQ/L (3.5-5.1); SODIUM LEVEL 142 MEQ/L (136-145)
[2019-03-06] MEDS: cefTRIAXone SOD 2 GM in D5W MINI-BAG PLUS 50 ML IV SCH (08:34)
[2019-03-06] MEDS ORDERED: AZIT-12 PO ×2 (08:56→11:44)
[2019-03-06] MEDS ORDERED: VENTAER INH ×2 (08:56→11:44)
[2019-03-06] MEDS ORDERED: SPIR1CAP INH ×2 (08:56→11:44)
--- NOTE | 2019-03-06 12:00 | DS.PDOC ---
Discharge Summary General Date of Admission Mar 04, 2019 at 20:50 Date of Discharge 03/06/19 Attending Physician: DORYS WYNNE MD Discharge Summary PROCEDURES PERFORMED DURING STAY: None. ADMITTING DIAGNOSES: 1. Sepsis secondary to pneumonia DISCHARGE DIAGNOSES: 1. Pneumonia. 2. COMPLICATIONS/CHIEF COMPLAINT: Sepsis. HISTORY OF PRESENT ILLNESS: Patient is a 43-year-old female with a history of chronic obstructive pulmonary disease, anemia, chronic disease on etiology gastroparesis and hereditary neuropathy with pressure palsy who presented to [facility] emergency department after being evaluated at an urgent care for feeling "sick for a few weeks." At the time. The patient admitted to a dry cough with relapsing and remitting fevers and chills as well as some muscle aches. Patient stated the symptoms started proximally one week before presentation to the urgent care. The patient was instructed to present to the emergency department after being evaluated at the urgent care. At the [facility] emergency department, the patient was found to be febrile with a temperature 100.8, tachycardic with a pulse of 122, and tachypneic with a respiratory rate of 28. Patient received a chest x-ray which demonstrated bibasilar infiltrates and bilateral pleural effusions. At the time the patient had met sepsis criteria and was given IV fluid hydration as IV antibiotics. Patient was admitted to hospitalist service for further evaluation. Over the course of the patient's hospital stay, she had shown improvement. She remained afebrile and did not require any supplement oxygenation. The patient has stated she felt back to her baseline and she was subsequently discharged. During the patient's hospitalization, she had mentioned a history of chronic obstructive pulmonary disease. However, she does not follow with a primary care physician. The patient was instructed that she would need to establish with a primary care physician and have spirometry completed to assess her after pulmonary disease. The patient was started on Spiriva and given a rescue inhaler to use upon discharge. Patient was prescribed 250 mg of azithromycin to take once daily for next 4 days with follow-up with a primary care physician in one to 2 weeks. On patient's laboratory findings. She was found to be anemic with an MCV of 102.3 suggesting of macrocytic anemia. She had stated that she been evaluated for anemia in the past, however, was unable to provide a diagnosis. Additionally, the patient has elevated platelets. Most recent platelet count 686,000. Vitamin B12 level was 2000 and her RBC folate was pending. Patient may need further evaluation outpatient by her primary care physician for further elucidation as to her macrocytic anemia. DISCHARGE MEDICATIONS: Please see below. ALLERGIES: Please see below. PHYSICAL EXAMINATION ON DISCHARGE: VITAL SIGNS: Please see below. GENERAL: Awake, alert, oriented, appears no acute distress, walking around the room. Patient is thin appearing with multiple tattoos HEENT:, Atraumatic. Normocephalic. Eyes are nonicteric. Trachea is midline NECK:. No palpable cervical, supraclavicular, axillary lymphadenopathy CARDIOVASCULAR EXAMINATION:. Normal S1, S2, regular rate and rhythm. No clicks, rubs or murmurs RESPIRATORY EXAMINATION:. Clear vesicular breath sounds bilaterally, mildly diminished in the bases with prolonged expiratory phase. No wheezes, rhonchi or rales ABDOMINAL EXAMINATION:. Soft, nondistended, nontender to palpation in all 4 quadrants. No rebound tenderness or guarding. No fluid wave or shift. EXTREMITIES: Thin extremities. No edema. Full and equal pulses in bilateral upper and lower extremities SKIN:, Multiple tattoos throughout body. No rashes or lesions NEUROLOGICAL EXAMINATION:. No focal neurological deficits PSYCHIATRIC EXAMINATION: Mood And affect appear appropriate LABORATORY DATA: Please see below. IMAGING: PA and lateral chest: Comparisons are 01/31/2017 and the study performed earlier this same date. There are bibasilar infiltrates, unchanged from the study performed earlier today. There are bilateral pleural effusions, unchanged from study earlier today. The mid and upper lung zones are clear and unchanged. Cardiac size is normal. The iris, mediastinum, skeletal structures are unremarkable. Impression: Bibasilar infiltrates and bilateral pleural effusions Electronically Signed by Adonis Torres MD 03/04/2019 07:53 P PROGNOSIS: Good ACTIVITY: As tolerated. DIET: As tolerated DISCHARGE PLAN: Patient is to be discharged home with follow-up with a primary care physician in one to 2 weeks. Patient is continue her azithromycin as prescribed. She is to start Spiriva 1 inhalation daily. She is to use Ventolin HFA every 4-6 hours as needed for shortness of breath. Patient is to follow-up with her primary care physician for further evaluation of COPD including spirometry and/or pulmonary function testing. Regarding the patient's anemia, and thrombocytosis, she may warrant a outpatient evaluation for a possible etiology. Given the patient's history of smoking and likely COPD she will likely need vaccinations once she follows up with her primary care physician. DISCHARGE CONDITION: Stable. I saw and evaluated the patient. I agree with the findings and plan of care as documented in the documenters note. I spent 45 minutes coordinating this patient's discharge. Vital Signs/I&Os Vital Signs Date Time Temp Pulse Resp B/P (MAP) Pulse Ox O2 Delivery O2 Flow Rate FiO2 03/06/19 06:00 98.6 68 17 109/63 (78) 97 03/05/19 10:00 Room Air 03/04/19 19:22 95 I&O- Last 24 Hours up to 6 AM 03/06/19 06:00 Intake Total 3250 ml Output Total 3250 ml Balance 0 ml Laboratory Data Labs 24H Laboratory Tests 2 03/05/19 17:50: Bedside Glucose (Misc Panel) 122H 03/06/19 07:32: Nucleated Red Blood Cells % (auto) 0.0, Anion Gap 5L, Glomerular Filtration Rate > 60.0, Blood Urea Nitrogen 4L, Creatinine 0.33L, Sodium Level 142, Potassium Level 4.3, Chloride Level 108H, Carbon Dioxide Level 29, Calcium Level 8.4L CBC/BMP Laboratory Tests 03/06/19 07:32 Red Blood Count 3.43 L, Mean Corpuscular Volume 102.3 H, Mean Corpuscular Hemoglobin 33.5 H, Mean Corpuscular Hemoglobin Concent 32.8, Red Cell Distribution Width 12.2, Calcium Level 8.4 L FSBS Laboratory Tests Test 03/05/19 17:50 Range/Units Bedside Glucose (Misc Panel) 122 70-105 MG/DL Microbiology Microbiology 03/04/19 Respiratory Virus Panel (PCR) ([facility]) - Final, Complete 03/04/19 Blood Culture - Preliminary, Resulted No growth after 24 hours . All specim... 03/04/19 Blood Culture - Preliminary, Resulted No growth after 24 hours . All specim... Discharge Medications Scheduled Azithromycin (Azithromycin) 250 Mg Tablet, 250 MG PO DAILY . Tiotropium [place] (Spiriva) 18 Mcg Cap.w.dev, 18 MCG INH DAILY Take one inhalation once daily. Scheduled PRN Albuterol Sulfate (Ventolin Hfa) 18 Gm Hfa.aer.ad, 2 PUFF INH Q4-6HP PRN for wheezing . Allergies Coded Allergies: No Known Allergies (Unverified , 03/04/19) SHERLEY ADAMS DO Mar 06, 2019 11:43 DORYS WYNNE MD Mar 09, 2019 11:29
[2019-03-08 00:06] LABS: BODY FLUID CULTURE Not Indicated (.); LEGIONELLA ANTIGEN URINE Negative (Negative); ORGANISM ID Not indicated. (.); SPECIMEN SOURCE Urine (.); URINE STREP PNEUMONIAE ANTIGEN Positive (Negative)
== END 2019-03-06 13:22 | disposition home or self-care (01) | DRG 871 ==
LOC: M ED 18:44 → M ED INP 20:50 → M ICU 23:31 → M MSPAV 03-05 16:31
PROVIDERS: ADMIT Internal Medicine; ATTEND Internal Medicine
DX: A41.9 Sepsis, unspecified organism (principal); J18.9 Pneumonia, unspecified organism; R64 Cachexia; Z68.1 Body mass index [BMI] 19.9 or less, adult; E46 Unspecified protein-calorie malnutrition; J44.0 Chronic obstructive pulmonary disease with (acute) lower respiratory infection; G60.8 Other hereditary and idiopathic neuropathies; K31.84 Gastroparesis; F17.200 Nicotine dependence, unspecified, uncomplicated; D69.6 Thrombocytopenia, unspecified; E87.6 Hypokalemia; D53.9 Nutritional anemia, unspecified; D63.1 Anemia in chronic kidney disease

== ENCOUNTER → 2019-03-04 | Outpatient (CLI) | payer OTHER ==
[~2019-03-04] MED LIST changes: +AZIT-12 PO; +CITRSOL8 PO; -GASTROGRAFIN SOLUTION 30ML (Q9963) As Ordered; +GNPLIQ60 PO; +MAGNESIUM OTC; +MULTIVIT PO; +OYST500T PO; +SPIR1CAP INH; +VENTAER INH; +nyquil
--- NOTE | 2019-03-04 15:55 | REP ---
Chest x-ray: Two views. History: Cough. Comparison chest x-ray January 31, 2017. Findings: There are dense areas of consolidation in the lower lobes bilaterally and there is blunting of the pleural angles bilaterally. Heart size is unchanged and not enlarged. Pulmonary vasculature is not congested. Impression: Bilateral lower lobe infiltrates consistent with pneumonia. Small bilateral pleural effusions. Electronically Signed by Jd Dean MD 03/04/2019 03:45 P
== END ==
LOC: M LRY 15:14
PROVIDERS: ATTEND Nurse Practitioner Family
DX: R91.8 Other nonspecific abnormal finding of lung field (principal)

== ENCOUNTER → 2019-03-04 | Outpatient (REF) | payer OTHER | LOC: M SFHCLERA 15:42 | PROVIDERS: ATTEND Nurse Practitioner Family | DX: J02.9 Acute pharyngitis, unspecified (principal) ==

== ENCOUNTER → 2019-07-07 | Outpatient (CLI) | payer OTHER ==
[~2019-07-07] MED LIST changes: +AZIT-12 PO; +GNPLIQ60 PO; +SPIR1CAP INH; +VENTAER INH; +nyquil
--- NOTE | 2019-07-07 16:30 | REP ---
PA and lateral chest: Comparison is 03/04/2019. The lung carbajal are hyperinflated. There is bibasilar atelectasis. The previous bilateral pleural effusions and a previous bilateral infiltrates have resolved. Remainder the lung carbajal are clear. There is pectus extra bottom. This artifactually magnifies cardiac size. The heart appears impinged between the sternum and vertebra. Impression: Bibasilar atelectasis. Pectus extra bottom, the heart appears impinged between the sternum and vertebra. Electronically Signed by Adonis Torres MD 07/07/2019 04:22 P
== END ==
LOC: M LRY 16:03
PROVIDERS: ATTEND Physician Assistant
DX: R05 Cough (principal); R50.9 Fever, unspecified
CPT/HCPCS: 71046; 87804; G0463

== ENCOUNTER → 2020-02-16 | Outpatient (CLI) | payer OTHER ==
--- NOTE | 2020-02-27 15:19 | DEXA ---
AP SPINE L1 - L4 0.881 -2.5 -2.5 LT FEMUR TOTAL 0.907 -0.8 -0.5 LT NECK 0.833 -1.5 -1.0 RT FEMUR TOTAL 0.851 -1.2 -1.0 RT NECK 0.840 -1.4 -0.9 TOTAL BODY TOTAL OTHER COMMENTS: There is low bone density of the spine and hips. The density of the spine is decreased 9.5% since 11/26/2015. The density of the left hip has decreased 10.8% since 11/26/2015. The density of the right hip has decreased 16.6% since 11/26/2015. FOLLOW-UP: Recommendation for the next bone density exam: 2 years. ARTHUR
== END ==
LOC: M WHC 15:17
PROVIDERS: ATTEND Family Medicine
DX: M81.0 Age-related osteoporosis without current pathological fracture (principal)

== ENCOUNTER 2020-06-14 16:15 | Emergency (ER) | payer OTHER ==
[~2020-06-14] VITALS: Ht 161.3 cm; Wt 38.4 kg
--- OUTSIDE RECORDS SUMMARY | 2020-06-14 16:27 | CCD | Continuity of Care Document ---
Author Author Jocelin GHOTRA GATE WATCH Organization Unknown Address [address], [address] [place] [address] Phone [phone] Care Team Providers Care Feed Mill Operator Name Role Phone Verena Chavarria AUTM [phone] Candace Ghotra MINILAB OPERATOR-Cde AUTM [phone] Problems Active Problems Provider Date Osteoporosis Onset: Anorexia nervosa Onset: Failure to thrive Onset: Plantar fasciitis Onset: Gastroesophageal reflux disease with hiatal hernia Onset: Nicotine dependence Onset: Chronic pain syndrome Onset: Note: BACK, FEET, LEGS Hereditary peripheral neuropathy Onset: Burning mouth syndrome Onset: Amenorrhea Onset: Note: x 5 years likely d/t her hereditar y neuropathy Diastasis recti Onset: Social History Type Date Description Comments Sex Unknown Tobacco Use Reviewed: 06/02/20 Patient is a current smoker, smokes every day 5 cigs daily Smoking Status Reviewed: 06/02/20 Patient is a current smoker, smokes every day 5 cigs daily Allergies, Adverse Reactions, Alerts Description No Known Drug Allergies Medications Active Medications SIG Qnty Indications Ordering Provide r Date Replesta 1.25mg (59299 Ut) Wafer One Wafer Chewed Weekly -- Recommended initiating 05/2020 4Wafers Candace Ghotra NP 06/03/2020 History Medications No Active Medications Unknown - 06/03/2020 Immunizations Description No Information Available Vital Signs Date Vital Result Comment 06/02/2020 1:11pm Height 63.50 inches 5'3.50" Weight 86.00 lb BMI (Body Mass Index) 15.0 kg/m2 BP Systolic 98 mmHg BP Diastolic 60 mmHg Heart Rate 95 /min Body Temperature 96.3 F Body Temperature 35.7 C O2 % BldC Oximetry 98 % Results Test Acquired Date Facility Test Result H/L Range Note Cbcadp 06/02/2020 [facility] [address] [place] [address] [phone] WBC. 3.65 x10E3/uL Low 4.2-12.0 RBC 4.88 x10E6/uL 3.9-5.4 HGB 16.7 g/dL High 12.0-16.0 HCT 51.6 % High 36-47 MCV 105.7 fL High 80-98 MCH 34.1 pg High 27-33 MCHC 32.3 g/dL 32-36 RDW 13.6 % 11.2-15.2 PLT 236 x10E3/uL 135-420 MPV 8.5 fL 7.0-12.3 % Karmen 52.2 % 41.0-80.0 %Lym 41.0 % 10.0-45.2 %[place] 4.8 % 2.0-13.0 %Eos 1.2 % 0.0-8.0 %Baso 0.9 % 0.0-3.0 Neut 1.9 x10E3/uL Low 2.0-8.1 Lymp 1.5 x10E3/uL 0.6-3.1 [place] 0.2 x10E3/uL 0.0-1.0 Eos 0.0 x10E3/uL 0.0-0.6 Baso 0.0 x10E3/uL 0.0-0.2 CMP-Female W/LDH,Phosphorus,Ur 06/02/2020 [facility] [address] [place] [address] [phone] LDH 260 U/L High 120-246 Phosphorus 3.9 mg/dL 2.7-4.5 1 Uric Acid 5.1 mg/dL 2.6-7.2 CMP-Female 06/02/2020 [facility] [address] [place] [address] [phone] Glucose 77 mg/dL 74-106 2 BUN 7 mg/dL 6-20 Creatinine 0.7 mg/dL 0.5-1.3 Sodium 139 mmol/L 136-145 Potassium 4.6 mmol/L 3.5-5.3 Chloride 102 mmol/L 98-107 Co2 27 mEq/L 20-31 Anion Gap 10 mmol/L 7-16 eGFR-female 91 mL/m/1.73m - eGFR-Aa female 110 mL/m/1.73m - 3 Alk. Phos. 67 U/L 46-116 Alt 19 U/L 4-36 4 Ast 33 U/L 8-33 Total Bilirubin 0.8 mg/dL 0.3-1.2 Total Protein 7.0 g/dL 6.4-8.3 5 Albumin 4.9 g/dL 3.6-5.1 A/G Ratio 2.3 Ratio High 1.0-2.0 Globulin 2.1 g/dL 1.9-3.7 Calcium 10.0 mg/dL 8.9-10.5 Laboratory test finding 06/02/2020 [facility] [address] [place] [address] [phone] Vitamin D, 25(Oh). 10.77 ng/ml Low 30-100 6 FSH 3.5 miU/ml - 7 LH 0.1 miU/ml - 8 E26iii 12.6 pg/mL - 9 TSH3 3.096 mIU/ml 0.350-5.500 Intact PTH 58.3 pg/mL 18.5-88.0 CPK 156 U/L 26-174 Venipuncture DONE - 1 11/10/2019-According to [employer] - Blood samples from some patients with monoclonal gammopathies may produce falsely elevated phosphorous results with this assay. 2 [place] Diabetes Associ[employer] n (ADA) Recommended Range is 65-99 mg/dL 3 Normal Kidney Function or Mi ld Disease GFR >59 mL/min/1.73m2 Chronic Kidney Disease GFR 15-59 mL/min/1.73m2 Renal Failure GFR <15 mL/min/1.73m2 4 Effective 12/02/2016: [employer] has indicated interference with the drugs sulfasalazine and sulfapyridine. They suggest collection should occur prior to drug administration due to falsely depressed results. 5 Results may reflect a potent ial interference in Total Protein results in patients receiving dextran as blood volume expanders. 6 Recommended Levels for Circu lating 25-hydroxy Vitamin D: Vitamin D Status 25-OH Vitamin D Test Result Deficient <10ng/mL Insufficient 10-29ng/mL Sufficient 30-100ng/mL Potential Intoxication >100ng/mL A pediatric reference range has not been established using this method. 7 Interpretation: Re ference Ranges Males 1.4 - 18.1 miu/ml Normally Menstruating Females Follicular Phase: 2.5 - 10.2 miu/ml Midcycle Phase: 3.4 - 33.4 miu/ml Luteal Phase: 1.5 - 9.1 miu/ml Post Menopausal Female: 23.0 - 116.3 miu/ml 8 Interpretation: Reference Ranges Males (20-70 yrs) : 1.5 - 9.3 miu/ml Normally Menstruating Females Follicular Phase: 1.9 - 12.5 miu/ml Midcycle Phase: 8.7 - 76.3 miu/ml Luteal Phase: 0.5 - 16.9 miu/ml Female: <0.1 - 1.5 miu/ml Post Menopausal Female: 15.9 - 54.0 miu/ml 9 Results Confirmed by Repeat Analysis. PLEASE NOTE: [employer] issued a correction notice stating patients taking the drug fulvestrant may show falsely elevated Estradiol results due to cross- reactivity. 07/21/2015 Reference Ranges Males: Not Detected - 39.8 Menstruating Females: (Day of cycle relative to LH Peak) Follicular (-12 to -4) 19.5 - 144.2 pg/mL Midcycle (-3 to +2) 63.9 - 356.7 Luteal (+4 to +12) 55.8 - 214.2 Post-menopausal females (untreated) Not Detected - 32.2 Postmenopausal 0- 44.5 Procedures Description No Information Available Medical Devices Description No Information Available Encounters Description No Information Available Assessments Date Code Description Provider 06/02/2020 M81.0 Age-related osteoporosis without current pathological fracture Candace Ghotra NP 06/02/2020 E55.9 Vitamin D deficiency, unspecifie d Candace Ghotra NP 06/02/2020 K31.84 Gastroparesis Candace Ghotra NP 06/02/2020 N91.2 Amenorrhea, unspecified Candace delgadillo, CECILE 06/02/2020 Z71.6 Tobacco abuse counseling Candace mathew NP 06/02/2020 E55.9 Vitamin D deficiency, unspecifie d [facility] 06/02/2020 M81.8 Other osteoporosis without curre nt pathological fracture [facility] 06/02/2020 N91.2 Amenorrhea, unspecified [facility] Plan of Treatment Future Appointment(s):* 09/20/2020 2:40 pm - Candace Ghotra NP at [facility] Primary [facility] AT [place] 06/02/2020 - Candace Ghotra NP* M81.0 Age-related osteoporosis without current pathological fracture* Comments:* Jocelin has been diagnosed with Osteoporosis via DEXA performed 02/2020. She was being followed by Makenzie Horan, Production Finisher in [facility] but has requested to establish here. She is accompanied by her today in the office. Discussed that the body needs 1200 mg of calcium daily and recommended to increase her intake of calcium through intake of calcium-rich foods as tolerated. I have given Jocelin and her a list of Calcium-rich foods with the quantity of Milligrams in a serving for her to review. If she does not feel she is getting at least 1000-1200mg of Calcium daily, I have asked her to start a Calcium supplement to make up the difference, recommending chewable Viactive for the stomach to tolerate. Information leaflet about dietary calcium was provided to the patient. Both she and her are in agreement. Discussed the natural history of Osteoporosis. Discussed with her that once diagnosed with Osteoporosis, recommended treatment is Medication therapy, along with preventative treatment including daily Calcium and Vitamin D intake, weight- bearing exercises. Discussed in detail the DEXA results.Discussed in detail various treatment options including oral medications, injectables (Prolia, Reclast, Forteo and Tymlos). However, I made it very clear that these agents will likely not be effective if she is unable to take in adequate Calcium and Vitamin D. Lab work was ordered. Pt will be notified of the results either by phone or by letter. Further management will depend on the lab results.She will f/u with me in 4 months. * E55.9 Vitamin D deficiency, unspecified* Comments:* Jocelin has a history of vitamin D deficiency, but she has not been taking any vitamin D supplements. she stopped taking MVI approx 2 years ago.Discussed Vitamin D helps the body absorb Calcium from foods as well as maintain the body's normal hormonal balances.Encourage foods that are high in Vitamin D, such as fatty fish such as mackerel, canned tuna and sardines, and salmon if tolerated. Certain foods such as milk, juice, and cereal are fortified with vitamin D and are accepta ble options as well.Take vitamin D supplements as directed.Vitamin D is best absorbed when taken with food. Recommend considering Replasta Chewable wafers for improved absorption, with a goal of 50,000iu weekly (can be split throughout the week).Expose your skin to sunlight as directed. Recommendation is 15 minutes a day, targeted to face, arms, hands, and/or back. Longer exposure requires protection with clothing and sunscreen. * K31.84 Gastroparesis* Comments:* Jocelin and her report a history of Gastroparesis of unknown etiology diagnosed approx 3 years ago. She has been seen by GI specialists and has had many tests. As a result, she reports symptoms of abdominal pain with eating, vomiting, and constipation. She is currently taking laxatives for constipation. * N91.2 Amenorrhea, unspecified* Comments:* Jocelin has a history of amenorrhea x 8y. LMP was at age 35. Menarche was at age 13. She and her report that Jocelin has seen multiple specialists in the past without known cause of this condition. We discussed that symptoms of amenorrhea may be correlated with low body weight and malnutrition. I will try to rule out any thyroid causes for her amenorrhea, labs have been ordered. * Z71.6 Tobacco abuse counseling* Comments:* A total of 5 minutes is spent today in tobacco counseling. I encouraged Pt to quit and discussed side effects of smoking such as mood stimulation, anxiety and irritability, poor vision, smelly hair, dull sense of smell and taste, unhealthy teeth, bronchitis, lung cancer, COPD, persistent coughing, constricted blood vessels, heart disease, loss of appetite, blood clotting, and high cholesterol. I advised Pt to call [facility] Quit Line. Other quitting options are also discussed including but not limited to trying a nicotine gum or Wellbutrin which has shown to help with smoking cessation. She expresses understanding and agrees with my plan.Total time spent with patient [id number] was 45 minutes of which gr eater than 50% was spent on coordination of care/counseling discussing various treatment options. * Follow up:* Endocrine follow up of 40 minutes in 4 mos Functional Status Description No Information Available Mental Status Description No Information Available Referrals Description No Information Available
--- OUTSIDE RECORDS SUMMARY | 2020-06-14 16:27 | CCD | Continuity of Care Document ---
Author Author Jocelin GHOTRA NOTCH GRINDER Organization Unknown Address [address], [address] [place] [address] Phone [phone] Care Team Providers Care Prospecting Observer Name Role Phone Verena Chavarria AUTM [phone] Candace Ghotra BAG PRESS OPERATOR-Cde AUTM [phone] Problems Active Problems Provider Date Osteoporosis Onset: [...] Indications Ordering Provide r Date Replesta 1.25mg (74020 Ut) Wafer One Wafer Chewed Weekly -- [...] Date Facility Test Result H/L Range Note Laboratory test finding 06/03/2020 [facility] [address] [place] [address] [phone] Folate 15.43 ng/ml 1.1-20.0 1 B12 500 pg/mL 211-911 2 Cbcadp 06/02/2020 [facility] [address] [place] [address] [phone] WBC. 3.65 x10E3/uL Low 4.2-12.0 RBC 4.88 x10E6/uL 3.9-5.4 HGB 16.7 g/dL High 12.0-16.0 HCT 51.6 % High 36-47 MCV 105.7 fL High 80-98 MCH 34.1 pg High 27-33 MCHC 32.3 g/dL 32-36 RDW 13.6 % 11.2-15.2 PLT 236 x10E3/uL 135-420 MPV 8.5 fL 7.0-12.3 % Karmen 52.2 % 41.0-80.0 %Lym 41.0 % 10.0-45.2 %[place] 4.8 % 2.0-13.0 %Eos 1.2 % 0.0-8.0 %Baso 0.9 % 0.0-3.0 Neut 1.9 x10E3/uL Low 2.0-8.1 Lymp 1.5 x10E3/uL 0.6-3.1 [place] 0.2 x10E3/uL 0.0-1.0 Eos 0.0 x10E3/uL 0.0-0.6 Baso 0.0 x10E3/uL 0.0-0.2 CMP-Female W/LDH,Phosphorus,Ur 06/02/2020 [facility] [address] [place] [address] [phone] LDH 260 U/L High 120-246 Phosphorus 3.9 mg/dL 2.7-4.5 3 Uric Acid 5.1 mg/dL 2.6-7.2 CMP-Female 06/02/2020 [facility] [address] [place] [address] [phone] Glucose 77 mg/dL 74-106 4 BUN 7 mg/dL 6-20 Creatinine 0.7 mg/dL 0.5-1.3 Sodium 139 mmol/L 136-145 Potassium 4.6 mmol/L 3.5-5.3 Chloride 102 mmol/L 98-107 Co2 27 mEq/L 20-31 Anion Gap 10 mmol/L 7-16 eGFR-female 91 mL/m/1.73m - eGFR-Aa female 110 mL/m/1.73m - 5 Alk. Phos. 67 U/L 46-116 Alt 19 U/L 4-36 6 Ast 33 U/L 8-33 Total Bilirubin 0.8 mg/dL 0.3-1.2 Total Protein 7.0 g/dL 6.4-8.3 7 Albumin 4.9 g/dL 3.6-5.1 A/G Ratio 2.3 Ratio High 1.0-2.0 Globulin 2.1 g/dL 1.9-3.7 Calcium 10.0 mg/dL 8.9-10.5 Laboratory test finding 06/02/2020 [facility] [address] [place] [address] [phone] Vitamin D, 25(Oh). 10.77 ng/ml Low 30-100 8 FSH 3.5 miU/ml - 9 LH 0.1 miU/ml - 10 E26iii 12.6 pg/mL - 11 TSH3 3.096 mIU/ml 0.350-5.500 Intact PTH 58.3 pg/mL 18.5-88.0 CPK 156 U/L 26-174 Venipuncture DONE - 1 test add on to labs from 156 06.02.2020 2 test add on to labs from 06.02.2020 3 11/10/2019-According to [employer] - Blood samples from some patients with monoclonal gammopathies may produce falsely elevated phosphorous results with this assay. 4 [place] Diabetes Associ[employer] n (ADA) Recommended Range is 65-99 mg/dL 5 Normal Kidney Function or Mi ld Disease GFR >59 mL/min/1.73m2 Chronic Kidney Disease GFR 15-59 mL/min/1.73m2 Renal Failure GFR <15 mL/min/1.73m2 6 Effective 12/02/2016: [employer] has indicated interference with the drugs sulfasalazine and sulfapyridine. They suggest collection should occur prior to drug administration due to falsely depressed results. 7 Results may reflect a potent ial interference in Total Protein results in patients receiving dextran as blood volume expanders. 8 Recommended Levels for Circu lating 25-hydroxy Vitamin D: Vitamin D Status 25-OH Vitamin D Test Result Deficient <10ng/mL Insufficient 10-29ng/mL Sufficient 30-100ng/mL Potential Intoxication >100ng/mL A pediatric reference range has not been established using this method. 9 Interpretation: Re ference Ranges Males 1.4 - 18.1 miu/ml Normally Menstruating Females Follicular Phase: 2.5 - 10.2 miu/ml Midcycle Phase: 3.4 - 33.4 miu/ml Luteal Phase: 1.5 - 9.1 miu/ml Post Menopausal Female: 23.0 - 116.3 miu/ml 10 Interpretation: Reference Ranges Males (20-70 yrs) : 1.5 - 9.3 miu/ml Normally Menstruating Females Follicular Phase: 1.9 - 12.5 miu/ml Midcycle Phase: 8.7 - 76.3 miu/ml Luteal Phase: 0.5 - 16.9 miu/ml Female: <0.1 - 1.5 miu/ml Post Menopausal Female: 15.9 - 54.0 miu/ml 11 Results Confirmed by Repeat Analysis. PLEASE NOTE: [employer] issued a correction notice stating patients taking [...] Ghotra NP 06/02/2020 N91.2 Amenorrhea, unspecified Candace delgadillo NP 06/02/2020 Z71.6 Tobacco abuse counseling Candace mathew NP 06/02/2020 E55.9 Vitamin D deficiency, unspecifie d [facility] 06/02/2020 M81.8 Other osteoporosis without curre nt pathological fracture [facility] 06/02/2020 N91.2 Amenorrhea, unspecified [facility] 06/02/2020 D51.9 Vitamin B12 deficiency anemia, u nspecified [facility] 06/02/2020 D52.0 Dietary folate deficiency anemia [facility] Plan of Treatment Future Appointment(s):* 09/20/2020 2:40 pm - Candace Ghotra NP at [facility] Primary [facility] AT [place] 06/02/2020 - Candace Ghotra NP* M81.0 Age-related osteoporosis without current pathological fracture* Comments:* Jocelin has been diagnosed with Osteoporosis via DEXA performed 02/2020. She was being followed by Makenzie Horan, Welder Tack in [facility] but has requested to establish here. She [...] high cholesterol. I advised Pt to call [facility] Quit Line. Other quitting options are also discussed including but not limited to trying a nicotine gum or Wellbutrin which has shown to help with smoking cessation. She expresses understanding and agrees with my plan.Total time spent with patient [id number] was 45 minutes of which gr eater than 50% was spent on coordination of care/counseling discussing various treatment options. * Follow up:* Endocrine follow up of 40 minutes in 4 mos Functional Status Description No Information Available Mental Status Description No Information Available Referrals Description No Information Available
--- OUTSIDE RECORDS SUMMARY | 2020-06-14 16:27 | CCD | Continuity of Care Document ---
Author Author Jocelin GHOTRA DISABILITY SERVICES COORDINATOR Organization Unknown Address [address], [address] [place] [address] Phone [phone] Care Team Providers Care Dietetic Tech Name Role Phone Verena Chavarria AUTM [phone] Candace Ghotra LEAD ATG DEVELOPER-Cde AUTM [phone] Problems Active Problems Provider Date Osteoporosis Onset: [...] Indications Ordering Provide r Date Replesta 1.25mg (05758 Ut) Wafer One Wafer Chewed Weekly -- [...] H/L Range Note Laboratory test finding 06/03/2020 [facility] [address] [place] [address] [phone] Folate 15.43 ng/ml 1.1-20.0 1 B12 500 pg/mL 211-911 2 Cbcadp 06/02/2020 [facility] [address] [place] [address] [phone] WBC. 3.65 x10E3/uL Low 4.2-12.0 RBC 4.88 x10E6/uL 3.9-5.4 HGB 16.7 g/dL High 12.0-16.0 HCT 51.6 % High 36-47 MCV 105.7 fL High 80-98 MCH 34.1 pg High 27-33 MCHC 32.3 g/dL 32-36 RDW 13.6 % 11.2-15.2 PLT 236 x10E3/uL 135-420 MPV 8.5 fL 7.0-12.3 % Karmen 52.2 % 41.0-80.0 %Lym 41.0 % 10.0-45.2 %[place] 4.8 % 2.0-13.0 %Eos 1.2 % 0.0-8.0 %Baso 0.9 % 0.0-3.0 Neut 1.9 x10E3/uL Low 2.0-8.1 Lymp 1.5 x10E3/uL 0.6-3.1 [place] 0.2 x10E3/uL 0.0-1.0 Eos 0.0 x10E3/uL 0.0-0.6 Baso 0.0 x10E3/uL 0.0-0.2 CMP-Female W/LDH,Phosphorus,Ur 06/02/2020 [facility] [address] [place] [address] [phone] LDH 260 U/L High 120-246 Phosphorus 3.9 mg/dL 2.7-4.5 3 Uric Acid 5.1 mg/dL 2.6-7.2 CMP-Female 06/02/2020 [facility] [address] [place] [address] [phone] Glucose 77 mg/dL 74-106 4 BUN 7 [...] 10.0 mg/dL 8.9-10.5 Laboratory test finding 06/02/2020 [facility] [address] [place] [address] [phone] Vitamin D, 25(Oh). 10.77 ng/ml Low 30-100 [...] elevated phosphorous results with this assay. 4 [place] Diabetes Associatio n (ADA) Recommended Range is 65-99 mg/dL 5 Normal Kidney Function or Mi ld Disease GFR >59 mL/min/1.73m2 Chronic Kidney Disease GFR 15-59 mL/min/1.73m2 Renal Failure GFR <15 mL/min/1.73m2 6 Effective 12/02/2016: [employer] has indicated interference with the drugs sulfasalazine [...] Results Confirmed by Repeat Analysis. PLEASE NOTE: [email or web address] issued a correction notice stating patients taking [...] Medical Devices Description No Information Available Encounters Type Date Location Provider Dx Diagnosis Office Visit 06/02/2020 1:00p [facility] Primary [facility] AT [place] Candace mathew NP M81.0 Age-related osteoporosis w/o current pat hological fracture E55.9 Vitamin D deficiency, unspec ified K31.84 Gastroparesis N91.2 Amenorrhea, unspecified F17.210 Nicotine dependence, cigaret ana maria, uncomplicated Z71.6 Tobacco abuse counseling Assessments Date Code Description Provider 06/02/2020 M81.0 Age-related osteoporosis without current pathological fracture Candace Ghotra NP 06/02/2020 E55.9 Vitamin D deficiency, unspecifie d Candace Ghotra NP 06/02/2020 K31.84 Gastroparesis Candace Ghotra NP 06/02/2020 N91.2 Amenorrhea, unspecified Candace delgadillo NP 06/02/2020 F17.210 Nicotine dependence, cigarettes, uncomplicated Candace Ghotra NP 06/02/2020 E55.9 Vitamin D deficiency, unspecifie d [facility] 06/02/2020 Z71.6 Tobacco abuse counseling Candace mathew NP 06/02/2020 M81.8 Other osteoporosis without curre nt pathological fracture [facility] 06/02/2020 N91.2 Amenorrhea, unspecified [facility] 06/02/2020 D51.9 Vitamin B12 deficiency anemia, u nspecified [facility] 06/02/2020 D52.0 Dietary folate deficiency anemia [facility] Plan of Treatment Future Appointment(s):* 09/20/2020 2:40 pm - Candace Ghotra NP at [facility] Primary [facility] AT [place] 06/02/2020 - Candace Ghotra NP* M81.0 Age-related osteoporosis without current pathological fracture* Comments:* Jocelin has been diagnosed with Osteoporosis via DEXA performed 02/2020. She was being followed by Makenzie Horan, Floors Buffer in [facility] but has requested to establish here. [...] her amenorrhea, labs have been ordered. * F17.210 Nicotine dependence, cigarettes, uncomplicated * Z71.6 Tobacco abuse counseling* Comments:* A [...] high cholesterol. I advised Pt to call [facility] Quit Line. Other quitting options are also discussed including but not limited to trying a nicotine gum or Wellbutrin which has shown to help with smoking cessation. She expresses understanding and agrees with my plan.Total time spent with patient [id number] was 45 minutes of which gr eater than 50% was spent on coordination of care/counseling discussing various treatment options. * Follow up:* Endocrine follow up of 40 minutes in 4 mos Functional Status Description No Information Available Mental Status Description No Information Available Referrals Description No Information Available
--- OUTSIDE RECORDS SUMMARY | 2020-06-14 16:28 | CCD ---
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 Name Role Phone BRAYDEN GRESHAM MD Unavailable Unavailable BRAYDEN GRESHAM MD Unavailable Unavailable BRAYDEN GRESHAM MD Unavailable Unavailable BRAYDEN GRESHAM MD Unavailable Unavailable BRAYDEN GRESHAM MD Unavailable Unavailable BRAYDEN GRESHAM MD Unavailable Unavailable BRAYDEN GRESHAM MD Unavailable Unavailable BRAYDEN GRESHAM MD Unavailable Unavailable BRAYDEN GRESHAM MD Unavailable Unavailable BRAYDEN GRESHAM MD Unavailable Unavailable BRAYDEN GRESHAM MD Unavailable Unavailable BRAYDEN GRESHAM MD Unavailable Unavailable WASBRAYDEN MCNEILL MD Unavailable Unavailable BRAYDEN GRESHAM MD Unavailable Unavailable BRAYDEN GRESHAM MD Unavailable Unavailable BRAYDEN GRESHAM MD Unavailable Unavailable BRAYDEN GRESHAM MD Unavailable Unavailable BRAYDEN GRESHAM MD Unavailable Unavailable BRAYDEN GRESHAM MD Unavailable Unavailable BRAYDEN GRESHAM MD Unavailable Unavailable WASBRAYDEN MCNEILL MD Unavailable Unavailable BRAYDEN GRESHAM MD Unavailable Unavailable BRAYDEN GRESHAM MD Unavailable Unavailable BRAYDEN GRESHAM MD Unavailable Unavailable BRAYDEN GRESHAM MD Unavailable Unavailable BRAYDEN GRESHAM MD Unavailable Unavailable BRAYDEN GRESHAM MD Unavailable Unavailable BRAYDEN GRESHAM MD Unavailable Unavailable BRAYDEN GRESHAM MD Unavailable Unavailable BRAYDEN GRESHAM MD Unavailable Unavailable BRAYDEN GRESHAM MD Unavailable Unavailable BRAYDEN GRESHAM MD Unavailable Unavailable BRAYDEN GRESHAM MD Unavailable Unavailable BRAYDEN GRESHAM MD Unavailable Unavailable BRAYDEN GRESHAM MD Unavailable Unavailable BRAYDEN GRESHAM MD Unavailable Unavailable BRAYDEN GRESHAM MD Unavailable Unavailable BRAYDEN GRESHAM MD Unavailable Unavailable Feliciano GAO MD Unavailable Unavailable Feliciano GAO MD Unavailable Unavailable Feliciano GAO MD Unavailable Unavailable Feliciano GAO MD Unavailable Unavailable Feliciano GAO MD Unavailable Unavailable Feliciano GAO MD Unavailable Unavailable Feliciano GAO MD Unavailable Unavailable Feliciano GAO MD Unavailable Unavailable Feliciano GAO MD Unavailable Unavailable Feliciano GAO MD Unavailable Unavailable Feliciano GAO MD Unavailable Unavailable Feliciano GAO MD Unavailable Unavailable Feliciano GAO MD Unavailable Unavailable Feliciano GAO MD Unavailable Unavailable Feliciano GAO MD Unavailable Unavailable Feliciano GAO MD Unavailable Unavailable Feliciano GAO MD Unavailable Unavailable Feliciano GAO MD Unavailable Unavailable Feliciano GAO MD Unavailable Unavailable Feliciano GAO MD Unavailable Unavailable Feliciano GAO MD Unavailable Unavailable Feliciano GAO MD Unavailable Unavailable Feliciano GAO MD Unavailable Unavailable Feliciano GAO MD Unavailable Unavailable Feliciano GAO MD Unavailable Unavailable Feliciano GAO MD Unavailable Unavailable Feliciano GAO MD Unavailable Unavailable Feliciano GAO MD Unavailable Unavailable Feliciano GAO MD Unavailable Unavailable Feliciano GAO MD Unavailable Unavailable Feliciano GAO MD Unavailable Unavailable Feliciano GAO MD Unavailable Unavailable Feliciano GAO MD Unavailable Unavailable Feliciano GAO MD Unavailable Unavailable Feliciano GAO MD Unavailable Unavailable Feliciano GAO MD Unavailable Unavailable Feliciano GAO MD Unavailable Unavailable Vaughnai, [phone] Felipe Minor MD Unavailable Kailey vailable Vaughns, [phone] Felipe Minor MD Unavailable Kailey vailable Vaughns, [phone] Felipe Minor MD Unavailable Kailey vailable Ed Horan MD Unavailable Unavailable Ed Horan MD Unavailable Unavailable Ed Horan MD Unavailable Unavailable Ed Horan MD Unavailable Unavailable Ed Horan MD Unavailable Unavailable Ed Horan MD Unavailable Unavailable Ed Horan MD Unavailable Unavailable Ed Horan MD Unavailable Unavailable Ed Horan MD Unavailable Unavailable Ed Horan MD Unavailable Unavailable Ed Horan MD Unavailable Unavailable Ed Horan MD Unavailable Unavailable Ed Horan MD Unavailable Unavailable Ed Horan MD Unavailable Unavailable Ed Horan MD Unavailable Unavailable Ed Horan MD Unavailable Unavailable Ed Horan MD Unavailable Unavailable Fish, Ed Banegas MD Unavailable Unavailable Fish, Ed Banegas MD Unavailable Unavailable Fish, Ed Banegas MD Unavailable Unavailable Fish, Ed Banegas MD Unavailable Unavailable Fish, Ed Banegas MD Unavailable Unavailable Fish, Ed Banegas MD Unavailable Unavailable Fish, Ed Banegas MD Unavailable Unavailable Fish, Ed Banegas MD Unavailable Unavailable Fish, Ed Banegas MD Unavailable Unavailable Fish, Ed Banegas MD Unavailable Unavailable Fish, Ed Banegas MD Unavailable Unavailable Fish, Ed Banegas MD Unavailable Unavailable Fish, Ed Banegas MD Unavailable Unavailable Fish, Ed Banegas MD Unavailable Unavailable Fish, Ed Banegas MD Unavailable Unavailable Fish, Ed Banegas MD Unavailable Unavailable Fish, Ed Banegas MD Unavailable Unavailable Fish, Ed Banegas MD Unavailable Unavailable Fish, Ed Banegas MD Unavailable Unavailable Fish, Ed Banegas MD Unavailable Unavailable Fish, Ed Banegas MD Unavailable Unavailable Fish, Ed Banegas MD Unavailable Unavailable Fish, Ed Banegas MD Unavailable Unavailable Fish, Ed Banegas MD Unavailable Unavailable Fish, Ed Banegas MD Unavailable Unavailable Fish, Ed Banegas MD Unavailable Unavailable Fish, dE Banegas MD Unavailable Unavailable Fish, Ed Banegas MD Unavailable Unavailable Fish, Ed Banegas MD Unavailable Unavailable Fish, Ed Banegas MD Unavailable Unavailable Fish, Ed Banegas MD Unavailable Unavailable Fish, Ed Banegas MD Unavailable Unavailable Fish, Ed Banegas MD Unavailable Unavailable Fish, Ed Banegas MD Unavailable Unavailable Fish, Ed Banegas MD Unavailable Unavailable Fish, Ed Banegas MD Unavailable Unavailable Fish, Ed Banegas MD Unavailable Unavailable Fish, Ed Banegas MD Unavailable Unavailable Fish, Ed Banegas MD Unavailable Unavailable Fish, Ed Banegas MD Unavailable Unavailable Fish, Ed Banegas MD Unavailable Unavailable Fish, Ed Banegas MD Unavailable Unavailable Fish, Ed Banegas MD Unavailable Unavailable Fish, Ed Banegas MD Unavailable Unavailable Fish, Ed Banegas MD Unavailable Unavailable Fish, Ed Banegas MD Unavailable Unavailable Fish, Ed Banegas MD Unavailable Unavailable Seng DUNCAN MD Unavailable Unavailable Seng DUNCAN MD Unavailable Unavailable Seng DUNCAN MD Unavailable Unavailable Seng DUNCAN MD Unavailable Unavailable Seng DUNCAN MD Unavailable Unavailable Seng DUNCAN MD Unavailable Unavailable Seng DUNCAN MD Unavailable Unavailable Seng DUNCAN MD Unavailable Unavailable Seng DUNCAN MD Unavailable Unavailable Seng DUNCAN MD Unavailable Unavailable Seng DUNCAN MD Unavailable Unavailable Seng DUNCAN MD Unavailable Unavailable Seng DUNCAN MD Unavailable Unavailable Seng DUNCAN MD Unavailable Unavailable Seng DUNCAN MD Unavailable Unavailable Seng DUNCAN MD Unavailable Unavailable Seng DUNCAN MD Unavailable Unavailable Seng DUNCAN MD Unavailable Unavailable Seng DUNCAN MD Unavailable Unavailable Seng DUNCAN MD Unavailable Unavailable Seng DUNCAN MD Unavailable Unavailable Seng DUNCAN MD Unavailable Unavailable Seng DUNCAN MD Unavailable Unavailable Seng DUNCAN MD Unavailable Unavailable Seng DUNCAN MD Unavailable Unavailable Seng DUNCAN MD Unavailable Unavailable Seng DUNCAN MD Unavailable Unavailable DAKOTASeng FORD MD Unavailable Unavailable DAKOTASeng FORD MD Unavailable Unavailable Seng DUNCAN MD Unavailable Unavailable Seng DUNCAN MD Unavailable Unavailable Seng DUNCAN MD Unavailable Unavailable Seng DUNCAN MD Unavailable Unavailable Seng DUNCAN MD Unavailable Unavailable Seng DUNCAN MD Unavailable Unavailable Seng DUNCAN MD Unavailable Unavailable Seng DUNCAN MD Unavailable Unavailable Seng DUNCAN MD Unavailable Unavailable Seng DUNCAN MD Unavailable Unavailable Seng DUNCAN MD Unavailable Unavailable Seng DUNCAN MD Unavailable Unavailable Seng DUNCAN MD Unavailable Unavailable Seng DUNCAN MD Unavailable Unavailable Seng DUNCAN MD Unavailable Unavailable Seng DUNCAN MD Unavailable Unavailable Seng DUNCAN MD Unavailable Unavailable Seng DUNCAN MD Unavailable Unavailable Seng DUNCAN MD Unavailable Unavailable Seng DUNCAN MD Unavailable Unavailable Seng DUNCAN MD Unavailable Unavailable Seng DUNCAN MD Unavailable Unavailable Seng DUNCAN MD Unavailable Unavailable Seng DUNCAN MD Unavailable Unavailable Seng DUNCAN MD Unavailable Unavailable Seng DUNCAN MD Unavailable Unavailable Seng DUNCAN MD Unavailable Unavailable Seng DUNCAN MD Unavailable Unavailable Seng DUNCAN MD Unavailable Unavailable Seng DUNCAN MD Unavailable Unavailable Seng DUNCAN MD Unavailable Unavailable Seng DUNCAN MD Unavailable Unavailable Seng DUNCAN MD Unavailable Unavailable Seng DUNCAN MD Unavailable Unavailable Seng DUNCAN MD Unavailable Unavailable Seng DUNCAN MD Unavailable Unavailable Seng DUNCAN MD Unavailable Unavailable Seng DUNCAN MD Unavailable Unavailable Seng DUNCAN MD Unavailable Unavailable Seng DUNCAN MD Unavailable Unavailable Seng DUNCAN MD Unavailable Unavailable Seng DUNCAN MD Unavailable Unavailable Seng DUNCAN MD Unavailable Unavailable Seng DUNCAN MD Unavailable Unavailable Seng DUNCAN MD Unavailable Unavailable Seng DUNCAN MD Unavailable Unavailable Seng DUNCAN MD Unavailable Unavailable Seng DUNCAN MD Unavailable Unavailable Seng DUNCAN MD Unavailable Unavailable Seng DUNCAN MD Unavailable Unavailable Seng DUNCAN MD Unavailable Unavailable Seng DUNCAN MD Unavailable Unavailable Seng DUNCAN MD Unavailable Unavailable Seng DUNCAN MD Unavailable Unavailable Feliciano Ghotra RN MS COIL BUILDER CDE Unavailable Unavailabl Feliciano Mendes RN MS COIL BUILDER CDE Unavailable Unavailabl Feliciano Mendes RN MS COIL BUILDER CDE Unavailable Unavailabl Feliciano eMndes RN MS COIL BUILDER CDE Unavailable Unavailabl Feliciano Mendes RN MS COIL BUILDER CDE Unavailable Unavailabl Feliciano Mendes RN MS COIL BUILDER CDE Unavailable Unavailabl Feliciano Mendes RN MS COIL BUILDER CDE Unavailable Unavailabl Feliciano Mendes RN MS COIL BUILDER CDE Unavailable Unavailabl Feliciano Mendes RN MS COIL BUILDER CDE Unavailable Unavailabl Feliciano Mendes RN MS COIL BUILDER CDE Unavailable Unavailabl Feliciano Mendes RN MS COIL BUILDER CDE Unavailable Unavailabl Feliciano Mendes RN MS COIL BUILDER CDE Unavailable Unavailabl Feliciano Mendes RN MS COIL BUILDER CDE Unavailable Unavailabl Feliciano Mendes RN MS COIL BUILDER CDE Unavailable Unavailabl Feliciano Mendes RN MS COIL BUILDER CDE Unavailable Unavailabl Feliciano Mendes RN MS COIL BUILDER CDE Unavailable Unavailabl Feliciano Mendes RN MS COIL BUILDER CDE Unavailable Unavailabl Feliciano Mendes RN MS COIL BUILDER CDE Unavailable Unavailabl Feliciano Mendes RN MS COIL BUILDER CDE Unavailable Unavailabl Feliciano Mendes RN MS COIL BUILDER CDE Unavailable Unavailabl Feliciano Mendes RN MS COIL BUILDER CDE Unavailable Unavailabl Feliciano Mendes RN MS COIL BUILDER CDE Unavailable Unavailabl Feliciano Mendes RN MS COIL BUILDER CDE Unavailable Unavailabl Feliciano Mendes RN MS COIL BUILDER CDE Unavailable Unavailabl Feliciano Mendes RN MS COIL BUILDER CDE Unavailable Unavailabl Feliciano Mendes RN MS COIL BUILDER CDE Unavailable Unavailabl Feliciano Mendes RN MS COIL BUILDER CDE Unavailable Unavailabl sharee Ghotra, Feliciano Maria RN MS COIL BUILDER CDE Unavailable Unavailabl Feliciano Mendes RN MS COIL BUILDER CDE Unavailable Unavailabl sharee Ghotra, Feliciano Maria RN MS COIL BUILDER CDE Unavailable Unavailabl sharee Ghotra, Feliciano Maria RN MS COIL BUILDER CDE Unavailable Unavailabl e Brandin, Feliciano Maria RN MS COIL BUILDER CDE Unavailable Unavailabl sharee Ghotra, Feliciano Maria RN MS COIL BUILDER CDE Unavailable Unavailabl e Feliciano Ghotra RN MS COIL BUILDER CDE Unavailable Unavailabl sharee Ghotra, Feliciano Maria RN MS COIL BUILDER CDE Unavailable Unavailabl e Brandin, Feliciano Maria RN MS COIL BUILDER CDE Unavailable Unavailabl e Brandin, Feliciano Maria RN MS COIL BUILDER CDE Unavailable Unavailabl e Brandin, Feliciano Maria RN MS COIL BUILDER CDE Unavailable Unavailabl e Brandin, Feliciano Maria RN MS COIL BUILDER CDE Unavailable Unavailabl e Brandin, Feliciano Maria RN MS COIL BUILDER CDE Unavailable Unavailabl e Brandin, Feliciano Maria RN MS COIL BUILDER CDE Unavailable Unavailabl e Brandin, Feliciano Maria RN MS COIL BUILDER CDE Unavailable Unavailabl sharee Ghotra, Feliciano Maria RN MS COIL BUILDER CDE Unavailable Unavailabl Feliciano Mendes RN MS COIL BUILDER CDE Unavailable Unavailabl Feliciano Mendes RN MS COIL BUILDER CDE Unavailable Unavailabl Feliciano Mendes RN MS COIL BUILDER CDE Unavailable Unavailabl Feliciano Mendes RN MS COIL BUILDER CDE Unavailable Unavailabl Feliciano Mendes RN MS COIL BUILDER CDE Unavailable Unavailabl Feliciano Mendes RN MS COIL BUILDER CDE Unavailable Unavailabl Feliciano Mendes RN MS COIL BUILDER CDE Unavailable Unavailabl Feliciano Mendes RN MS COIL BUILDER CDE Unavailable Unavailabl Feliciano Mendes RN MS COIL BUILDER CDE Unavailable UnavailKETTY Felipe MD Unavailable Unavailable KETTY DWYER MD Unavailable Unavailable KETTY DWYER MD Unavailable Unavailable KETTY DWYER MD Unavailable Unavailable KETTY DWYER MD Unavailable Unavailable KETTY DWYER MD Unavailable Unavailable KETTY DWYER MD Unavailable Unavailable REINDL, KETTY WALDRON Unavailable Unavailable REINDL, KETTY WALDRON Unavailable Unavailable REINDL, KETTY WALDRON Unavailable Unavailable REINDL, KETTY WALDRON Unavailable Unavailable REINDL, KETTY WALDRON Unavailable Unavailable REINDL, KETTY WALDRON Unavailable Unavailable REINDL, KETTY WALDRON Unavailable Unavailable REINDL, KETTY WALDRON Unavailable Unavailable REINDL, KETTY WALDRON Unavailable Unavailable REINDL, KETTY WALDRON Unavailable Unavailable REINDL, KETTY WALDRON Unavailable Unavailable REINDL, KETTY WALDRON Unavailable Unavailable REINDL, KETTY WALDRON Unavailable Unavailable REINDL, KETTY WALDRON Unavailable Unavailable REINDL, KETTY WALDRON Unavailable Unavailable REINDL, KETTY WALDRON Unavailable Unavailable REINDL, KETTY WALDRON Unavailable Unavailable REINDL, KETTY WALDRON Unavailable Unavailable REINDL, KETTY WALDRON Unavailable Unavailable REINDL, KETTY WALDRON Unavailable Unavailable REINDL, KETTY WALDRON Unavailable Unavailable REINDL, KETTY WALDRON Unavailable Unavailable REINDL, KETTY WALDRON Unavailable Unavailable REINDL, KETTY WALDRON Unavailable Unavailable REINDL, KETTY WALDRON Unavailable Unavailable REINDL, KETTY WALDRON Unavailable Unavailable REINDL, KETTY WALDRON Unavailable Unavailable REINDL, KETTY WALDRON Unavailable Unavailable REINDL, KETTY WALDRON Unavailable Unavailable REINDL, KETTY WALDRON Unavailable Unavailable REINDL, KETTY WALDRON Unavailable Unavailable REINDL, KETTY WALDRON Unavailable Unavailable REINDL, KETTY WALDRON Unavailable Unavailable REINDL, KETTY WALDRON Unavailable Unavailable REINDL, KETTY WALDRON Unavailable Unavailable Louisa SHIRLEY MD Unavailable Unavailable Louisa SHILREY MD Unavailable Unavailable Louisa SHIRLEY MD Unavailable Unavailable Louisa SHIRLEY MD Unavailable Unavailable Louisa SHIRLEY MD Unavailable Unavailable Louisa SHIRLEY MD Unavailable Unavailable Louisa SHIRLEY MD Unavailable Unavailable Louisa SHIRLEY MD Unavailable Unavailable Louisa SHIRLEY MD Unavailable Unavailable Louisa SHIRLEY MD Unavailable Unavailable Louisa SHIRLEY MD Unavailable Unavailable Louisa SHIRLEY MD Unavailable Unavailable Louisa SHIRLEY MD Unavailable Unavailable Louisa SHIRLEY MD Unavailable Unavailable Louisa SHIRLEY MD Unavailable Unavailable Louisa SHIRLEY MD Unavailable Unavailable Louisa SHIRLEY MD Unavailable Unavailable Louisa SHIRLEY MD Unavailable Unavailable Louisa SHIRLEY MD Unavailable Unavailable Louisa SHIRLEY MD Unavailable Unavailable Louisa SHIRLEY MD Unavailable Unavailable Louisa SHIRLEY MD Unavailable Unavailable Louisa SHIRLEY MD Unavailable Unavailable JANA CASTRO MD Unavailable Unavailable JANA CASTRO MD Unavailable Unavailable JANA CASTRO MD Unavailable Unavailable JANA CASTRO MD Unavailable Unavailable Re-disclosure Warning The records that you are about to access may contain information from federally-assisted alcohol or drug abuse programs. If such information is present, then the following federally mandated warning applies: This information has been disclosed to you from records protected by federal confidentiality rules (42 CFR part 2). The federal rules prohibit you from making any further disclosure of this information unless further disclosure is expressly permitted by the written consent of the person to whom it pertains or as otherwise permitted by 42 CFR part 2. A general authorization for the release of medical or other information is NOT sufficient for this purpose. The Federal rules restrict any use of the information to criminally investigate or prosecute any alcohol or drug abuse patient.The records that you are about to access may contain highly sensitive health information, the redisclosure of which is protected by Article 27-F of the [facility] Public Health law. If you continue you may have access to information: Regarding HIV / AIDS; Provided by facilities licensed or operated by the [facility] Office of Mental Health; or Provided by the [facility] Office for People With Developmental Disabilities. If such information is present, then the following [facility] mandated warning applies: This information has been disclosed to you from confidential records which are protected by state law. State law prohibits you from making any further disclosure of this information without the specific written consent of the person to whom it pertains, or as otherwise permitted by law. Any unauthorized further disclosure in violation of state law may result in a fine or detention sentence or both. A general authorization for the release of medical or other information is NOT sufficient authorization for further disc losure. Allergies and Adverse Reactions Type Description Substance Reaction Status Data Source(s ) Drug Class NO KNOWN ALLERGIES NO KNOWN ALLERGIES [facility] Family History Family Member Name Family Member Gender Family Member Status Date o f Status Description Data Source(s) Unknown Male Problem [facility] ([facility]) Unknown Unknown Problem [facility] ([facility]) Unknown Male Problem [facility] ([facility] ) Unknown Unknown Problem [facility] Encounters Encounter Providers Location Date Indications Data Source(s ) Outpatient Attender: JANA CASTRO MD 10/14/2020 12:0 0:00 AM [facility] Outpatient Attender: Candace Ghotra RN MS COIL BUILDER CDE [facility] 06/02/2020 12:00:00 PM EST [facility] ([facility]) Emergency Attender: [facility]IR[facility] [place]: [id number] Iván Celeste MD 03/02/2020 03:24:00 PM EDT - 03/02/2020 05:54:00 PM EDT [facility] Patient discharged. Outpatient Attender: KETTY DUNCAN MD 02/14/2020 12:02:33 A M EDT [facility] Outpatient [facility] [id number] Iván Celeste MD 02/10/2020 02:04:00 PM EDT - 02/10/2020 03:04:00 PM EDT [facility] Outpatient Attender: [facility]NA [facility]UR[facility] [id number] Iván Celeste MD 02/04/2020 11:48:00 AM EDT - 02/04/2020 12:48:00 PM EDT [facility] Outpatient Attender: Makenzie Horan MD Physical Therapy 01/18 02:00:00 PM EDT MED[facility] ([facility]) Outpatient Attender: KETTY Pham/Stephanie/Cole/Ranjeet blevins 12/17/2019 03:00:00 PM EDT [facility] ([facility]) Outpatient Attender: KETTY DUNCAN MD 11/11/2019 07:59:58 P M EDT [facility] Outpatient Attender: KETTY DUNCAN MD 11/01/2019 12:18:24 A M EDT [facility] Outpatient Referrer: BRAYDEN GRESHAM MD 07/16/2019 01:09:0 0 PM EST [facility] [address] [address] 07/07/2019 12:00:00 AM EST eCW1 ([facility]) Outpatient Attender: KETTY DUNCAN MD 04/23/2019 06:19:01 A M EST [facility] Outpatient Attender: KETTY DUNCAN MD 04/22/2019 01:16:02 P M [facility] Medications Medication Brand Name Start Date Product Form Dose Route Admi nistrative Instructions Pharmacy Instructions Status Indications Reaction Description Data Source(s) Replesta 06/03/2020 12:00:00 AM EST active [facility]ENT ([facility]) No Active Medications 06/02/2020 12:00:00 AM EST completed [facility] ([facility]) Ergocalciferol 00364 UNT Oral Capsule [Drisdol] Drisdol 01/19/2020 12:00:00 AM EDT ORAL active MEDENT ([facility]) No Active Medications 01/19/2020 12:00:00 AM EDT completed MEDENT ([facility]) Lactulose 667 MG/ML Oral Solution Lactulose 12/17/2019 12:00:00 AM EDT ORAL active MEDENT ([facility] ) 200 ACTUAT Albuterol 0.09 MG/ACTUAT Mete red Dose Inhaler [ProAir] ProAir HFA 108 (90 Base) MCG/ACT ProAir HFA 108 (90 Base) MCG/ACT 07/07/2019 12:00:00 AM EST active 2 puffs as neede d eCW1 ([facility]) Insurance Providers Payer name Policy type / Coverage type Policy ID Covered constitution party ID Covered constitution party's relationship to escobar Policy Escobar Plan Information [place] [employer] [id number] [facility] [id number] [place] [employer] - O/P [id number] 01 [id number] [facility] P [id number] O [id number] [place] [place] REG O [id number] S [id number] For Life P UNAVAILABLE O U NAVAILABLE [place] [id number] [facility] [id number] [place] [employer] Commercial [id number] Family Dependent [id number] [place] [id number] 01 [id number] [place] [employer] Commercial [id number] Family Dependent [id number] [place] [id number] 01 [id number] [place] [id number] 01 [id number] [place] [id number] 01 [id number] [place] [id number] 01 [id number] [place] [employer] Commercial [id number] Family Dependent [id number] [place] [id number] HU2 [id number] [place] [employer] Commercial [id number] Family Dependent [id number] N REGIONAL CLAIMS YUMIKO-O/P [id number] 01 [id number] [facility] Health Maintenance Organization (O) [id number] Family Dependent [id number] [place] (2018) Health Maintenance Organization (O) [id number] Family Dependent [id number] [employer] ( [place]) [id number] 0 [id number] [facility] [id number] 1 [id number] U [id number] Self [id number] Federal Service Medigap Part B [id number] Family De pendent [id number] [place] Referrals Medigap Part B [id number] Family Depen dent [id number] [place] Referrals Commercial [id number] Family Dependent [id number] [facility] Federal Service Commercial [id number] Family Depend ent [id number] [facility] Federal Service Commercial [id number] Family Depend ent [id number] [facility] Health Maintenance Organization (HMO) [id number] Family Dependent [id number] [facility] Federal Service Commercial [id number] Family Depend ent [id number] [facility] Health Maintenance Organization (O) [id number] Family Dependent [id number] [place] [place] O [id number] S [id number] [facility] Federal Service Commercial [id number] Family Depend ent [id number] U [id number] Spouse [id number] [facility] Health Maintenance Organization (O) [id number] Family Dependent [id number] [facility] Federal Service Commercial [id number] Family Depend ent [id number] [facility] Federal Service Commercial [id number] Family Depend ent [id number] Region 1 Prime Commercial [id number] Family Dependent [id number] [place] [place] [id number] HU2 [id number] [facility] [id number] HU2 [id number] [facility] O [id number] P [id number] [facility] [id number] HU2 [id number] [facility] P [id number] P [id number] [facility] O [id number] U 03 [id number] O [id number] U [id number] Problems, Conditions, and Diagnoses Code Display Name Description Problem Type Effective Dates Data Source(s) I10 Essential (primary) hypertension Essential (primary) h ypertension Diagnosis 03/02/2020 03:24:00 PM EDT [facility] R531 Weakness Weakness Diagnosis 03/02/2020 03:24:00 PM ED T [facility] R51 Headache Headache Diagnosis 02/10/2020 02:04:00 PM ED [facility] R930 Abnormal findings on diagnos tic imaging of skull and head, not elsewhere classified Abnormal findings on diagnostic imaging of skull and head, not elsewhere classified Diagnosis 02/10/2020 02:04:00 PM EDT [facility] K5900 Constipation, unspecified Constipation, unspecified Di agnosis 02/04/2020 11:48:00 AM EDT [facility] R1084 Generalized abdominal pain Generalized abdominal pain Diagnosis 02/04/2020 11:48:00 AM EDT [facility] Surgeries/Procedures Procedure Description Date Indications Data Source(s) Influenza A+B 07/07/2019 12:00:00 AM EST eCW1 ([facility]) Results ID Date Data Source [id number] 06/03/2020 02:44:00 PM EST [facility] ([facility]) Name Value Range Interpretation Code Description Data Lili rce(s) Supporting Document(s) Folate [Mass/volume] in Serum or Plasma 15.43 ng/mL 1.1-20.0 [facility] ([facility]) test add on to labs from 2019 Cobalamin (Vitamin B12) [Mass/volume] in Serum or Plasma 500 pg/mL 2 11-911 [facility] ([facility]) test add on to labs from [id number] 2019 ID Date Data Source [id number] 06/02/2020 02:25:00 PM EST [facility] ([facility]) Name Value Range Interpretation Code Description Data Lili rce(s) Supporting Document(s) Follitropin [Units/volume] in Serum or Plasma 3.5 miU/ml [facility] ([facility]) Interpretation: Reference Rang es Males 1.4 - 18.1 miu/ml Normally Menstruating Females Follicular Phase: 2.5 - 10.2 miu/ml Midcycle Phase: 3.4 - 33.4 miu/ml Luteal Phase: 1.5 - 9.1 miu/ml Post Menopausal Female: 23.0 - 116.3 miu/ml Vitamin D+Metabolites [Mass/volume] in Serum or Plasma 10.77 ng/ mL 30-100 Below low normal [facility] ([facility]) <content>Recommended Levels for Circulat ing 25-hydroxy Vitamin D:</content>
<content>Vitamin D Status 25-OH Vitamin D Test Result</content>
<content>Deficient <10ng/mL</content>
<content>Insufficient 10- 29ng/mL</content>
<content>Sufficient 30-100ng/mL</content>
<content>Potential Intoxication >100ng/mL</content>
<content>A pediatric reference range has not been established using this method.</content>
<content></content> Lutropin [Units/volume] in Serum or Plasma 0.1 miU/ml [facility] ([facility]) <content></content>
<content>In terpretation: Reference Ranges</content>
<content>Males (20-70 yrs) : 1.5 - 9.3 miu/ml</content>
<content>Normally Menstruating Females</content>
<content>Follicular Phase: 1.9 - 12.5 miu/ml</content>
<content>Midcycle Phase: 8.7 - 76.3 miu/ml</content>
<content>Luteal Phase: 0.5 - 16.9 miu/ml</content>
<content> Female: <0.1 - 1.5 miu/ml</content>
<content>Post Menopausal Female: 15.9 - 54.0 miu/ml</content>
<content></content>
<content></content> Thyrotropin [Units/volume] in Serum or Plasma 3.096 mIU/ml 0.350-5.50 0 [facility] ([facility]) E26iii 12.6 pg/mL [facility] ([facility]) Results Confirmed by Repeat Analysis. PLEASE NOTE: [employer] issued a correction notice stating patients taking [...] Not Detected - 32.2 Postmenopausal 0- 44.5 Parathyrin.intact [Mass/volume] in Serum or Plasma 58.3 pg/mL 18.5-88 .0 [facility] ([facility]) Venipuncture Laboratory test result MEDE NT ([facility]) Creatine kinase [Enzymatic activity/volume] in Serum or Plasma 156 U/L 26-174 [facility] ([facility]) ID Date Data Source [id number] 06/02/2020 02:25:00 PM EST [facility] ([facility]) Name Value Range Interpretation Code Description Data Lili rce(s) Supporting Document(s) Urea nitrogen [Moles/volume] in Serum or Plasma 7 mg/dL 6-20 [facility] ([facility]) Glucose [Mass/volume] in Serum or Plasma 77 mg/dL 74-106 [facility] ([facility]) [place] Diabetes [employer] (ADA) Recommended Range is 65-99 mg/dL Creatinine [Mass/volume] in Serum or Plasma 0.7 mg/dL 0.5-1.3 [facility] ([facility]) Sodium [Moles/volume] in Serum or Plasma 139 mmol/L 136-145 [facility] ([facility]) Potassium [Moles/volume] in Serum or Plasma 4.6 mmol/L 3.5-5.3 [facility] ([facility]) Anion Gap 10 mmol/L 7-16 [facility] ([facility]) Carbon dioxide, total [Moles/volume] in Serum or Plasma 27 meq/L 20 -31 [facility] ([facility]) Chloride [Moles/volume] in Serum or Plasma 102 mmol/L 98-107 [facility] ([facility]) Alkaline phosphatase [Enzymatic activity/volume] in Serum or Plasma 67 U/L 46-116 [facility] ([facility]) eGFR-female 91 mL/m/1.73m [facility] ([facility]) eGFR-Aa female 110 mL/m/1.73m [facility] ([facility]) <content>Normal Kidney Function or Mild Disease GFR >59 mL/min/1.73m2</content>
<content>Chronic Kidney Disease GFR 15-59 mL/min/1.73m2</content>
<content>Renal Failure GFR <15 mL/min/1.73m2</content>
<content></content> Protein [Mass/volume] in Serum or Plasma 7.0 g/dL 6.4-8.3 [facility] ([facility]) Results may reflect a potential interfer ence in Total Protein results in patients receiving dextran as blood volume expanders. Alanine aminotransferase [Enzymatic activity/volume] in Seru m or Plasma 19 U/L 4-36 [facility] ([facility]) Effective 12/02/2016: [facility] has indicated interference with the drugs sulfasalazine and sulfapyridine. They suggest collection should occur prior to drug administration due to falsely depressed results. Aspartate aminotransferase [Enzymatic activity/volume] in Serum or Plasma 33 U/L 8-33 [facility] Bilirubin.total [Mass/volume] in Serum or Plasma 0.8 mg/dL 0.3-1.2 [facility] ([facility]) Albumin [Mass/volume] in Serum or Plasma 4.9 g/dL 3.6-5.1 [facility] ([facility]) Albumin/Globulin [Mass Ratio] in Serum or Plasma 2.3 Ratio 1.0-2.0 Above high normal [facility] ([facility]) Globulin [Mass/volume] in Serum by calculation 2.1 g/dL 1.9-3.7 [facility] ([facility]) Calcium [Mass/volume] in Serum or Plasma 10.0 mg/dL 8.9-10.5 [facility] ([facility]) ID Date Data Source [id number] 06/02/2020 02:25:00 PM EST [facility]) Name Value Range Interpretation Code Description Data Lili rce(s) Supporting Document(s) Lactate dehydrogenase [Enzymatic activit y/volume] in Serum or Plasma by Lactate to pyruvate reaction 260 U/L 120-246 Above high normal [facility] ([facility]) Phosphate [Moles/volume] in Serum or Plasma 3.9 mg/dL 2.7-4.5 [facility] ([facility]) 11/10/2019-According to [employer] Blood sa mples from some patients with monoclonal gammopathies may produce falsely elevated phosphorous results with this assay. Urate [Mass/volume] in Serum or Plasma 5.1 mg/dL 2.6-7.2 [facility] ([facility]) ID Date Data Source [id number] 06/02/2020 02:25:00 PM EST [facility] ([facility]) Name Value Range Interpretation Code Description Data Lili rce(s) Supporting Document(s) WBC. 3.65 x10E3/uL 4.2-12.0 Below low normal [facility] ([facility]) Erythrocytes [#/volume] in Blood by Automated count 4.88 x10E6/uL 3.9 -5.4 [facility] ([facility]) MCV 105.7 fL 80-98 Above high normal [facility] ([facility]) MCH 34.1 pg 27-33 Above high normal [facility] ([facility]) Hematocrit [Volume Fraction] of Blood by Automated count 51.6 % 36-47 Above high normal [facility] ([facility]) Hemoglobin [Mass/volume] in Blood 16.7 g/dL 12.0-16.0 Above high no rmal [facility] ([facility]) Platelets [#/volume] in Blood by Automated count 236 x10E3/uL 135-420 [facility] ([facility]) MCHC 32.3 g/dL 32-36 [facility]) RDW 13.6 % 11.2-15.2 [facility] ([facility]) % [place]arm[place] 52.2 % 41.0-80.0 [facility]) MPV 8.5 fL 7.0-12.3 [facility] ([facility]) %Lym 41.0 % 10.0-45.2 [facility] ([facility]) %[place] 4.8 % 2.0-13.0 [facility] ([facility]) %Baso 0.9 % 0.0-3.0 [facility] ([facility]) %Eos 1.2 % 0.0-8.0 [facility] ([facility]) Neut 1.9 x10E3/uL 2.0-8.1 Below low normal [facility] ([facility]) Lymp 1.5 x10E3/uL 0.6-3.1 [facility]) [place] 0.2 x10E3/uL 0.0-1.0 [facility] ([facility]) Eos 0.0 x10E3/uL 0.0-0.6 [facility]) Baso 0.0 x10E3/uL 0.0-0.2 [facility] ([facility]) ID Date Data Source [id number] 03/02/2020 03:24:00 PM EDT [facility] 1 OrderSheet [facility] Emergency Department [address] [place] [address] Phone #: ext- [phone] 03/02/2020 15:08 Patient: ERIN VANN Sex: F : 1975 Age: 44yWEIGHT:50.3 kg (S) HEIGHT:63 inches (S) BMI:19.6ALLERGIES: No Known Drug AllergyCHIEF COMPLAINT: weaknessDIAGNOSIS: AstheniaLAB ORDERSOrder Description Priority Entered Acknowledged InitialedCBC wo Diff STAT 15:33 03/02/2020 16:01 Fabio Navas Norma MD; Val WernerCMP STAT 15:33 03/02/2020 16:01 Fabio Navas Norma MD; Val WernerLactic Acid STAT 15:33 03/02/2020 16:01 Fabio Navas Norma MD; Val Harris.Lipase STAT 15:03/02/2020 16:01 Fabio Navas Norma MD; Val WernerMagnesium STAT 15:33 03/02/2020 16:01 Fabio Navas Norma MD; Val WernerUrinalysis (Clean STAT 15:03/02/2020 16:01 Yosef,Catch) Patricio Shirley MD; Val WernerUrine Drug Screen STAT 15:33 03/02/2020 16:01 Fabio Navas Norma MD; Val WernerHCG Serum Qual STAT 15:03/02/2020 16:01 Fabio Navas Norma MD; Val WernerDIAGNOSTIC STUDY ORDERSOrder Description Priority Entered Acknowledged InitialedMEDICATION/IV/DRIP/FLUID ORDERSOrder Description Priority Entered Acknowledged InitialedIV NS 1000 mL 15:34 03/02/2020 16:10 Yosef,Bolus : Bolus 1000 Patricio Shirley MD; Val WernermL (X1)GENERAL ORDERSOrder Description Priority Entered Acknowledged InitialedEKG 15:33 03/02/2020 16:01 Fabio Navas Norma MD; Val Werner 2 OrderSheet [facility] Emergency Department [address] [place] [address] Phone #: ext- [phone] 03/02/2020 15:08 Patient: ERIN VANN Sex: F : 1975 Age: 44y[Electronically signed by Patricio Shirley MD (19:10 03/02/2020)][Electronically signed by Valeriy Bocanegra (08:59 03/25/2020)][Electronically locked by Valeriy Bocanegra (08:59 03/25/2020)] Name Value Range Interpretation Code Description Data Lili rce(s) Supporting Document(s) ID Date Data Source [id number] 03/02/2020 03:24:00 PM EDT [facility] 1 Medication Reconciliation Report [facility] Emergency Department [address] [place] [address] Phone #: ext- [phone] 03/02/2020 15:08 Patient: ERIN VANN Sex: F : 1975 Age: 44yWeight: 50.3 kgHeight/Length: 63 in.BMI: 19.6ALLERGIES: No Known Drug AllergyThe patient's Home Medications are listed below:NONE.The source(s) of the original Home Medication information:patient's spouseThe following Medications were given to the patient in the Emergency Department:NS [IV] IV Fluids bolus 1000 mL over 1 hour(s), administered: 03/02/2020 4:10:00 PMThe following Medications were prescribed to the patient:None. Name Value Range Interpretation Code Description Data Lili rce(s) Supporting Document(s) ID Date Data Source [id number] 03/02/2020 03:24:00 PM EDT [facility] 1 Medication Administration Record [facility] Emergency Department [address] [place] [address] Phone #: ext- [phone] 03/02/2020 15:08 Patient: ERIN VANN Sex: F : 1975 Age: 44yWeight: 50.3 kgHeight/Length: 63 inBMI: 19.6ALLERGIES: No Known Drug Allergy Date/Time Medication Administered Medication OrderedStart NS [IV] IV NS 1000 mL Bolus : Bolus [id number] 0 03/02/2020 Dose: IV Fluids mL (X1)Val Navas R.N. Bolus: 1000 mL over 1 hour(s)---- Dispensed: 1000 mL bagStop Site: #1 right AC17:39 03/02/2020Charlette Marshall R.N. Name Value Range Interpretation Code Description Data Lili rce(s) Supporting Document(s) ID Date Data Source [id number] 03/02/2020 03:24:00 PM EDT [facility] 1 General Instructions [facility] Emergency Department [address] [place] [address] Phone #: ext- [phone] 03/02/2020 15:08 Patient: ERIN VANN Sex: F : 1975 Age: 44yGeneralized weakness.INSTRUCTIONSNo strenuous activity.(return if worse or any new symptoms. it is imperative that you follow up with your primary care physician.Please also follow up with your medicare coordinator. make sure you eat daily. it is important to drink waterand to ea t a healthy diet.).Warnings: Further evaluation is necessary.GENERAL WARNINGS: Return or contact your physician immediately if your condition worsens orchanges unexpectedly, if not improving as expected, or if other problems arise.Your Current Medications: .No home medication.Follow-up:Follow up with your doctor tomorrow even if well. Call for an appointment. Reason for referral: evaluation.Summary of care provided to patient via paper.Understanding of the discharge instructions verbalized by patient. ADDITIONAL INFORMATIONWeakness with Uncertain CauseBased on your exam today, the exact cause of your weakness is not certain. But your weakness doesnot seem to be a sign of a serious illness at this time. Keep an eye on your symptoms and getmedical advice as instructed below.Home care Rest at home today. Don't over-exert yourself. Take any medicine as prescribed. For the next few days, drink extra fluids (unless your healthcare provider wants you to restrict fluids for other reasons). Don't skip meals. 2 General Instructions [facility] Emergency Department [address] [place] [address] Phone #: ext- [phone] 03/02/2020 15:08 [id number] Sex: F : 1975 Age: 44y Unless otherwise directed, continue to take any prescription medicines. Contact your healthcare provider if you have any questions or concerns.Follow-up careFollow up with your healthcare provider, or as advised.When to seek medical adviceCall your healthcare provider right away for any of the following: Symptoms get worse Symptoms don't start getting better within 2 days Fever of 100.4 F (38 C) or higher, or as directed by your healthcare providerCall 911Call 911 for any of these: Chest, arm, neck, jaw, or upper back pain Trouble breathing Numbness or weakness of the face, one arm, or one leg Slurred speech, confusion, or trouble speaking, walking, or seeing Blood in vomit or stool (black or red color) Loss of consciousness Severe headache [id number] [employer]. [address] [place] [address]. All rights reserved. This information is not intended as asubstitute for professional medical care. Always follow your healthcare professional's instructions. You have been given the following additional information: Weakness (Uncertain Cause) No strenuous activity. 3 General Instructions [facility] Emergency Department [address] [place] [address] Phone #: ext- [phone] 03/02/2020 15:08 Patient: ERIN VANN Sex: F : 1975 Age: 44y(Electronically signed by Patricio Shirley MD 03/02/2020 19:10) Name Value Range Interpretation Code Description Data Lili rce(s) Supporting Document(s) ID Date Data Source [id number] 03/02/2020 03:24:00 PM EDT [facility] 1 Clinical Report - Nurses [facility] Emergency Department [address] [place] [address] Phone #: ext- [phone] 03/02/2020 15:08 Patient: ERIN VANN Sex: F : 1975 Age: 44yTRIAGEArrived by private vehicle. Historian: patient. Accompanied by family.Acuity: LEVEL 3.Chief Complaint: SYNCOPE.This is a recurrent problem. (Pt reports passing twice since yesterday. She is unsure if she hit her head ornot, but states the Right side of her head hurts.). Patient was reported to be last known well. Witnessed:Event was not witnessed. The patient has had nausea, trouble walking, a headache and weakness andexperienced syncope. The patient has had vomiting (pt says vomiting has been occuring for months, andshe does not believe its related to the passing out.).Treatment GERIATRIC NURSE ASSISTANT:None.SEPSIS SCREEN: SIRS Screen negative. Sepsis Screen negative. No suspected or confirmed signs ofinfection present.RYDER COMA SCORE: 15- eyes open- spontaneous (4); best verbal response- oriented (5); bestmotor response- obeys commands (6). --15:31 03/02/20 Val Navas R.N.15:18 03/02/20. BP: 120/79. MAP: 92. HR: 78. RR: 18. O2 saturation: 100%. Temp: 97.3 F. Pain levelnow: 8/10. --15:31 03/02/20 Val Navas R.N.Weight: 50.3 kg stated. Height/Length: 63 inches Per Patient. BMI: 19.6. --15:24 03/02/20 Val Navas R.N.MedicationsNone. --15:28 03/02/20 Val Navas R.N.AllergiesNo Known Drug Allergy. --15:28 03/02/20 Val Navas R.N.PROBLEMS:Osteoporosis.Gastroparesis.HNPP. --15:29 03/02/20 Val Navas R.N.Medication/allergy information source: the patient's spouse. --15:31 03/02/20 Val Navas R.N.ADDITIONAL SURGERIES: 2 Clinical Report - Nurses [facility] Emergency Department [address] [place] [address] Phone #: ext- [phone] 03/02/2020 15:08 [id number] Sex: F : 1975 Age: 44y no known surgeries. History PAST MEDICAL HX: Hypertension. Syncope. No history of stroke or diabetes mellitus. No history of seizures or GI bleed. Immunizations: up-to-date. Last normal menstrual period- 8 years ago. Denies current . SOCIAL HX: Light tobacco smoker- less than 1/2 a pack per day. No alcohol use or drug use. The patient was offered HIV testing but declined and hepatitis C testing but declined. The patient has not traveled outside the [place] Infectious disease exposure: No infectious disease exposure. The patient was not exposed to C-diff, MRSA, VRE, CRE or Coronavirus. SELF HARM ASSESSMENT: Self harm assessment was performed. The patient answered "no" to the question(s) "Have you recently felt down, depressed, or hopeless?", "Do you have thoughts of harming or killing yourself?", "Do you have a plan for harming or killing yourself?", "Have you recently had thoughts about harming or killing others?", "Do you have any dangerous items in your possession?", "Have you noticed less interest or pleasure in doing things?", "Are you here because you tried to hurt yourself?" and "Have you ever tried to hurt yourself before today?". ABUSE ASSESSMENT: No report of abuse. NUTRITIONAL RISK ASSESSMENT: The nutritional risk assessment revealed no deficiencies. FUNCTIONAL ASSESSMENT: Functional assessment: no impairments noted. LEARNING NEEDS ASSESSMENT: The learning needs assessment revealed no barriers. FALL RISK ASSESSMENT: Fall risk assessment completed. Risk factors identified include dizziness, vertigo and patient history of fall. Fall interventions initiated. Patient placed on stretcher. Side rails up x2. Bed in low position. Brakes on. Patient identified as a fall risk. Family at bedside. Call light in reach of patient. Instructions given to patient and family. SKIN INTEGRITY ASSESSMENT: Skin integrity risk assessment completed. No skin integrity risk identified. --15:03/02/20 Val Navas R.N. Interventions To treatment room. --15:03/02/20 Val Navas R.N.PHYSICAL ASSESSMENTGENERAL / NEURO / PSYCH: Oriented X 4. Appears in pain and anxious. Speech within normal limits.She has weakness. She has numbness.HEENT: No facial asymmetry noted. Pupils equal, round and reactive to light.RESPIRATORY: Breath sounds within normal limits. Respirations not labored.CVS: Normal sinus rhythm noted. Capillary refill less than 2 seconds. 3 Clinical Report - Nurses [facility] Emergency Department [address] [place] [address] Phone #: ext- [phone] 03/02/2020 15:08 Patient: ERIN VANN Sex: F : 1975 Age: 44y GI / : Abdomen soft and nontender. SKIN: Skin is warm and dry. --16:03 03/02/20 Val Navas R.N.NURSING PROGRESS NOTESMonitoring of patient in place. Head of bed elevated. Reassurance given. Call light placed in reach.Side rails up x 2. Bed placed in lowest position. Brakes of bed on. Patient ready for evaluation- EDphysician notified. --15:31 03/02/20 Val Navas R.N. 16:07 03/02/20. BP: 110/61. MAP: 77. HR: 69. RR: 16. O2 saturation: 100%. --16:08 03/02/20 [facility] Tech, [place], ER Tech1 EKG time: (16:02 03/02/2020). EKG was performed by a tech and shown to the ED physician. --16:08 03/02/20 [facility] Tech, [place], ER Tech1 16:10 03/02/2020 Site #1 started via IV in the right antecubital space with an 20g angiocath, with aseptic technique and good blood return; one attempt. Blood drawn: rainbow set and green tube(s). Labeled in the presence of the patient and sent to the lab. Saline lock flushed with 10 mL saline. --16:10 03/02/20 Val Navas R.N. 16:10 03/02/2020 Started bag #1 1000 mL IV Fluids NS; bolus of 1000 mL over 1 hour(s) via site #1 via IV pump. Allergies verified and confirmed 5 rights. IV patency established. IV site checked: no pain, redness, or swelling. IV flushed thoroughly pre- and post-medication administration. Information reviewed with patient including reason for taking this medication. Verbalizes understanding. --16:10 03/02/20 Val Navas R.N. 17:07 03/02/20. BP: 112/76. MAP: 88. HR: 66. RR: 16. O2 saturation: 100%. --17:12 03/02/20 [facility] Tech, [place], ER Tech1 17:39 03/02/2020 IV Fluids NS via IV site #1 Discontinued: bag #1 completed upon discharge. Total amount infused: 1000 mL. IV patency established. IV site checked: no pain, redness, or swelling. IV flushed thoroughly. --17:54 03/02/20 Charlette Marshall R.N.DISPOSITION / DISCHARGE 17:03/02/20. BP: 118/84. MAP: 95. HR: 81. RR: 16. O2 saturation: 99%. Temp: 98.1 F. --17:29 03/02/20 [place] non licensed operator, [facility], Tech1 Discharge instructions provided and reviewed with the patient and spouse. Reviewed medication(s). Prescription(s) given to the patient. Reviewed referral to a primary care physician. Activity restrictions (rest) reviewed. Patient verbalized understanding. Written instructions provided in Croatian. --17:53 03/02/20 Charlette Marshall R.N. Departure time: 17:53 03/02/2020. --17:53 03/02/20 Charlette Marshall R.N. 17:54 03/02/20. Pain level now: 07/14. --17:54 03/02/20 Charlette Marsahll R.N. 4 Clinical Report - Nurses [facility] Emergency Department [address] [place] [address] Phone #: ext- [phone] 03/02/2020 15:08 [id number] Sex: F : 1975 Age: 44yLocked/Released at 03/25/2020 08:59 by Valeriy Bocanegra, Name Value Range Interpretation Code Description Data Lili rce(s) Supporting Document(s) ID Date Data Source [id number] 03/02/2020 03:24:00 PM EDT [facility] 1 Clinical Report - Physicians/Mid Levels [facility] Emergency Department [address] [place] [address] Phone #: ext- [phone] 03/02/2020 15:08 [facility] [id number] Sex[facility] F : 1975 Age: 44y Arrived- By private vehicle. Historian- patient. Disposition decision: 17:44 03/02/2020.HISTORY OF PRESENT ILLNESS Chief Complaint: WEAKNESS. This started 8 years and is still present. At its maximum, severity described as moderate. When seen in the E.D., severity described as moderate. Modifying factors. Not worsened by anything. Not relieved by anything. The patient has had loss of appetite, weight loss, a headache, visual disturbance and fatigue. She has had muscle aches and weakness. (All the symptoms above have been ongoing for 8 years.). Similar symptoms previously.REVIEW OF SYSTEMSNo fever, sore throat, sinus drainage, nasal congestion or cough. No difficulty breathing, chest pain,abdominal pain, nausea or vomiting. No diarrhea, black stools, bloody stools, chills or difficulty withurination. No skin rash, back pain, calf pain, headache or blackouts. No double vision. No difficulty withambulation.PAST HISTORYSee nurses notes. Problems: Hypertension. Syncope. Osteoporosis. Gastroparesis. HNPP. Additional Surgeries: no known surgeries. Medications: None. Allergies: No Known Drug Allergy.SOCIAL HISTORYNo drug use.ADDITIONAL NOTES 2 Clinical Report - Physicians/Mid Levels [facility] Emergency Department [address] [place] [address] Phone #: ext- [phone] 03/02/2020 15:08 --- Patient: ERIN VANN Sex: F : 1975 Age: 44y The nursing notes have been reviewed.PHYSICAL EXAMVital Signs: 03/02/2020 17:29 BP: 118/84. MAP: 95. HR: 81. RR: 16. O2 saturation: 99%. Temp: 98.1 F.03/02/2020 17:07 BP: 112/76. MAP: 88. HR: 66. RR: 16. O2 saturation: 100%.03/02/2020 16:07 BP: 110/61. MAP: 77. HR: 69. RR: 16. O2 saturation: 100%.03/02/2020 15:18 BP: 120/79. MAP: 92. HR: 78. RR: 18. O2 saturation: 100%. Temp: 97.3 F. Pain levelnow: 01/11. Have been reviewed and appear to be correct. Blood pressure normal. Mean arterialpressure- normal. Heart rate normal. Respiratory rate normal. Temperature normal. Oxygensaturation normal.Appearance: Alert. No acute distress. (extremely thin, frail, pt looks much older than her stated age).Eyes: Pupils equal, round and reactive to light. Eyes normal inspection.ENT: Nose normal. Mildly dry mucous membranes present.Neck: Normal inspection. Neck supple.CVS: Normal heart rhythm and rate. Heart sounds normal. Pulses normal.Respiratory: No respiratory distress. Breath sounds normal. Chest nontender.Abdomen: No visible injury. Soft. Mild tenderness diffusely. Bowel sounds normal.Back: Normal inspection. No CVA tenderness.Skin: Skin warm and dry. Normal skin color. No rash. Normal skin turgor.Extremities: Extremities exhibit normal ROM. No lower extremity edema.Neuro: Oriented X 3. No motor deficit. No sensory deficit.LABS, X-RAYS, AND EKGLaboratory Tests: CBC wo Diff: (BLADIMIR: 03/02/2020 16:00) ( MsgRcvd 03/02/2020 16:11) Final results Test Result Flag Units (Reference) CBC NO DIFF COMPLETE BLOOD COUNT WBC 4.8 10/uL (4.2 - 11.0) RBC 4.69 10/uL (4.20 - 5.40) HEMOGLOBIN 15.4 g/dL (12.0 - 16.0) HEMATOCRIT 47.3 H % (37.0 - 47.0) MCV 100.9 fL (81.0 - 101) MCH 32.8 pg (27.0 - 34.0) MCHC 32.6 g/dL (31.0 - 36.0) RDW 12.5 % (11.5 - 14.5) PLATELETS 243 10/uL (150 - 450) MPV 10.1 fL (7.4 - 10.4) CMP: (BLADIMIR: 03/02/2020 16:00) ( MsgRcvd 03/02/2020 17:01) Final results Test Result Flag Units (Reference) COMPREHENSIVE METABOLIC PANEL COMPREHENSIVE METABOLIC PANEL SODIUM 141 mEq/L (134 - 153) POTASSIUM 3.9 mEq/L (3.6 - 5.0) CHLORIDE 103 mEq/L (98 - 107) CO2 27 MEQ/L (22 - 30) GLUCOSE 90 MG/DL (65 - 110) 3 Clinical Report - Physicians/Mid Levels [facility] Emergency Department [address] [place] [address] Phone #: ext- [phone] 03/02/2020 15:08 Patient: ERIN VANN Sex: F : 1975 Age: 44y BUN 6 L MG/DL (7 - 21) CREATININE 0.5 L MG/DL (0.7 - 1.5) BUN/CREAT 12 (8 - 27) TOTAL PROTEIN 7.5 G/DL (6.3 - 8.2) ALBUMIN 4.6 G/DL (3.9 - 5.0) GLOBULIN 2.9 GM/DL (2.4 - 3.2) A/G RATIO 1.6 (0.8 - 2.0) CALCIUM 9.9 MG/DL (8.4 - 10.2) TOTAL BILI <0.7 MG/DL (0.2 - 1.3) ALKALINE PHOS 89 U/L (38 - 126) SGOT/AST 21 U/L (5 - 40) SGPT/ALT 16 U/L (7 - 56) ANION GAP 11.0 mmol/L (8.0 - 16.0) AGE 44 yrs NON-AA GFR >60 mL/min AFR AMER GFR >60 mL/min Male GFR Interprentation 20-49 yrs >60 mL/min Dmhrxh85-71 yrs >56 mL/min Normal 60-69 yrs >49 mL/min Normal 70-79yrs>42 mL/min Normal 80 and above >35 mL/min Normal Female GFRInterpretation 20-39 yrs >60 mL/min Normal 40-49 yrs >58 mL/minNormal 50-59 yrs >51 mL/min Normal 60-69 yrs >45 mL/min Frzcjc52-67 yrs >39 mL/min Normal 80 and above >32 mL/min NormalLactic Acid: (BLADIMIR: 03/02/2020 16:00) ( [facility] 03/02/2020 16:20) Final results Test Result Flag Units (Reference) LACTIC ACID 1.6 MMOL/L (0.2 - 2.2)Lipase: (BLADIMIR: 03/02/2020 16:00) ( [facility] 03/02/2020 16:52) Final results Test Result Flag Units (Reference) LIPASE 35 U/L (13 - 60)Magnesium: (BLADIMIR: 03/02/2020 16:00) ( [facility] 03/02/2020 17:02) Final results Test Result Flag Units (Reference) MAGNESIUM 2.2 MG/DL (1.7 - 2.2)Urinalysis: (BLADIMIR: 03/02/2020 16:00) ( [facility] 03/02/2020 16:10) Final results Test Result Flag Units (Reference) URINALYSIS URINALYSIS SOURCE R COLOR yellow (NORMAL: Yello CLARITY clear (NORMAL: Clear SPEC GRAVITY 1.010 (1.001 - 1.030 pH 7 (5 - 9) GLUCOSE NORM (NORMAL: Negat BILIRUBIN NEG (NORMAL: Negat KETONE NEG (NORMAL: Negat PROTEIN NEG (NORMAL: Negat NITRITE NEG (NORMAL: Negat BLOOD NEG (NORMAL: Negat LEUK EST NEG (NORMAL: Negat UROBILINOGEN NOR (less than 1.0 MICROSCOPIC Not IndicateDrug Screen-Urine: (BLADIMIR: 03/02/2020 16:00) ( MsgRcvd 03/02/2020 16:45) Final results 4 Clinical Report - Physicians/Mid Levels [facility] Emergency Department [address] [place] [address] Phone #: ext- [phone] 03/02/2020 15:08 Patient: ERIN VANN Sex: F : 1975 Age: 44y Test Result Flag Units (Reference) DRUG SCREEN URINE URINE DRUG SCREEN AMPHETAMINES NEGATIVE (NORMAL: NEGAT BARBITURATES NEGATIVE (NORMAL: NEGAT BENZO NEGATIVE (NORMAL: NEGAT COCAINE NEGATIVE (NORMAL: NEGAT THC NEGATIVE (NORMAL: NEGAT OPIATES NEGATIVE (NORMAL: NEGAT PCP NEGATIVE (NORMAL: NEGAT \\BLDo\\URINE DRUG SCREEN INTERPRETATION\\BLDx\\ THE CUTOFFF LEVELS FOR DETECTION ARE FOLLOWS: AMPHETAMINES 1000 ng/ml BARBITUARATES 200 ng/ml BENZODIAZEPINES 100 ng/ml THC 50 ng/ml PHENCYCLIDINE 25 ng/ml OPIATES 300 ng/ml COCAINE 300 ng/ml ALL POSITIVES ARE CONSIDERED PRESUMPTIVE POSITIVE CONFIRMATION WILL BE PERFORMED AT PHYSICIAN REQUEST. Beta-HCG, Qual Serum: (BLADIMIR: 03/02/2020 16:00) ( MsgRcvd 03/02/2020 16:49) Final results Test Result Flag Units (Reference) HCG SERUM QUAL NEGATIVE (NORMAL: NEGAT HCG SERUM QL REENTER NEGATIVE (NORMAL: NEGAT { KIT LOT # [id number] ){ KIT EXP DATE 03.16.21 ){ PROCEDURAL CONTROL VALID ).PROGRESS AND PROCEDURESCourse of Care: pt presents to the ED with her chronic problems. she states she called her doctor andshe was told to come to the Ed for evaluation. her is with her. none of her complaints are new.labs reviewed. no acute findings. Pt wanted to review her mri brain in 02/[address] abd/pelvis in01/2020. I reviewed with pt and gave her a copy. We discussed various possibilities of her ailmentsincluding ms. I encouraged her to f/u with her pcp and medicare coordinator. pt further encouraged to return ifworse or any new symptoms. I encouraged her to drink plenty of fluids and to make sure she eats food.she needs to increase her caloric intake. pt and voiced understanding. Patient/family counseled. Disposition: Discharged. Condition: good and stable.CLINICAL IMPRESSION Generalized weakness. 5 Clinical Report - Physicians/Mid Levels [facility] Emergency Department [address] [place] [address] Phone #: ext- [phone] 03/02/2020 15:08 Patient: ERIN VANN Sex: F : 1975 Age: 44yINSTRUCTIONS No strenuous activity. (return if worse or any new symptoms. it is imperative that you follow up with your primary care physician. Please also follow up with your medicare coordinator. make sure you eat daily. it is important to drink water and to eat a healthy diet.). Warnings: Further evaluation is necessary. GENERAL WARNINGS: Return or contact your physician immediately if your condition worsens or changes unexpectedly, if not improving as expected, or if other problems arise. Your Current Medications: . No home medication. Follow-up: Follow up with your doctor tomorrow even if well. Call for an appointment. Reason for referral: evaluation. Summary of care provided to patient via paper. Understanding of the discharge instructions verbalized by patient.(Electronically signed by Patricio Shirley MD 03/02/2020 19:10) Name Value Range Interpretation Code Description Data Lili rce(s) Supporting Document(s) ID Date Data Source [id number] 03/04/2020 08:05:00 AM EDT [facility] [address] [place], [place] [address] [address] RESPIRATORY CARE REPORT ==== ---------NAME------- NUMBER SEX AGE ADMIT DISC. XRAY# F/C TYPECUOMO ERIN L [id number] F 44 03/02/20 03/02/20 [id number] E/R DATE OF : 1975 M/R# [id number] #: [id number] LOCATION: EMERGENCY DEPT EKG 15088 COMP LETE:03/03/20 01:50 [place] [id number] PHYSICIAN: OWEN SHIRLEY NOR Name Value Range Interpretation Code Description Data Lili rce(s) Supporting Document(s) ID Date Data Source [id number] 03/02/2020 05:01:00 PM EDT [facility] Name Value Range Interpretation Code Description Data Lili rce(s) Supporting Document(s) Magnesium [Mass/volume] in Serum or Plasma 2.2 MG/DL 1.7 - 2.2 [facility] ID Date Data Source [id number] 03/02/2020 05:01:00 PM EDT [facility] Name Value Range Interpretation Code Description Data Lili rce(s) Supporting Document(s) COMPREHENSIVE METABOLIC PANEL [facility] COMPREHENSIVE METABOLIC PANEL Sodium [Moles/volume] in Serum or Plasma 141 mEq/L 134 - 153 [facility] Potassium [Moles/volume] in Serum or Plasma 3.9 mEq/L 3.6 - 5.0 [facility] Chloride [Moles/volume] in Serum or Plasma 103 mEq/L 98 - 107 [facility] Carbon dioxide, total [Moles/volume] in Serum or Plasma 27 MEQ/L 22 - 30 [facility] Glucose [Mass/volume] in Serum or Plasma 90 MG/DL 65 - 110 [facility] BUN 6 MG/DL 7 - 21 L [facility] al Creatinine [Mass/volume] in Serum or Plasma 0.5 MG/DL 0.7 - 1.5 L [facility] BUN/CREAT 12 8 - 27 [facility] al Protein [Mass/volume] in Serum or Plasma 7.5 G/DL 6.3 - 8.2 [facility] Albumin [Mass/volume] in Serum or Plasma 4.6 G/DL 3.9 - 5.0 [facility] Globulin [Mass/volume] in Serum by calculation 2.9 GM/DL 2.4 - 3.2 [facility] A/G RATIO 1.6 0.8 - 2.0 [facility] Calcium [Mass/volume] in Serum or Plasma 9.9 MG/DL 8.4 - 10.2 [facility] Bilirubin.total [Mass/volume] in Serum or Plasma <0.7 MG/DL 0.2 - 1.3 [facility] Alkaline phosphatase [Enzymatic activity/volume] in Serum or Plasma 89 U/L 38 - 126 [facility] Aspartate aminotransferase [Enzymatic activity/volume] in Serum or Plasma 21 U/L 5 - 40 [facility] Alanine aminotransferase [Enzymatic activity/volume] in Seru m or Plasma 16 U/L 7 - 56 [facility] Anion gap 3 in Serum or Plasma 11.0 mmol/L 8.0 - 16.0 [facility] AGE 44 yrs [facility] al NON-AA GFR >60 mL/min [facility] ital AFR AMER GFR >60 mL/min [facility] Male GFR In terprentation 20-49 yrs >60 mL/min Normal 50-59 yrs >56 mL/min Normal 60-69 yrs >49 mL/min Normal 70-79yrs >42 mL/min Normal 80 and above >35 mL/min Normal Female GFR Interpretation 20-39 yrs >60 mL/min Normal 40-49 yrs >58 mL/min Normal 50-59 yrs >51 mL/min Normal 60-69 yrs >45 mL/min Normal 70-79 yrs >39 mL/min Normal 80 and above >32 mL/min Normal ID Date Data Source [id number] 03/02/2020 04:52:00 PM EDT [facility] Name Value Range Interpretation Code Description Data Lili rce(s) Supporting Document(s) Lipase [Enzymatic activity/volume] in Serum or Plasma 35 U/L 13 - 60 [facility] ID Date Data Source [id number] 03/02/2020 04:48:00 PM EDT [facility] Value Range Interpretation Code Description Data Llii rce(s) Supporting Document(s) HCG SERUM QUAL NEGATIVE NORMAL: NEGATIVE [facility] HCG SERUM QL REENTER NEGATIVE NORMAL: NEGATIVE [facility] { KIT LOT # [id number] ){ KIT EXP DATE 03.16.21 ){ PROCEDURAL CONTROL VALID ) ID Date Data Source [id number] 03/02/2020 04:42:00 PM EDT [facility] Value Range Interpretation Code Description Data Lili rce(s) Supporting Document(s) DRUG SCREEN URINE [facility] URINE DRUG SCREEN Amphetamine [Presence] in Urine by Screen method NEGATIVE NORMAL: N EGATIVE [facility] BARBITURATES NEGATIVE NORMAL: NEGATIVE [facility] BENZO NEGATIVE NORMAL: NEGATIVE [facility] COCAINE NEGATIVE NORMAL: NEGATIVE [facility] Tetrahydrocannabinol [Presence] in Urine NEGATIVE NORMAL: NEGATIVE [facility] OPIATES NEGATIVE NORMAL: NEGATIVE [facility] Phencyclidine [Presence] in Urine by Screen method NEGATIVE NOR MAL: NEGATIVE [facility] \\BLDo\\URINE DRUG SCR EEN INTERPRETATION\\BLDx\\ THE CUTOFFF LEVELS FOR DETECTION ARE FOLLOWS: AMPHETAMINES 1000 ng/ml BARBITUARATES 200 ng/ml BENZODIAZEPINES 100 ng/ml THC 50 ng/ml PHENCYCLIDINE 25 ng/ml OPIATES 300 ng/ml COCAINE 300 ng/ml ALL POSITIVES ARE CONSIDERED PRESUMPTIVE POSITIVE CONFIRMATION WILL BE PERFORMED AT PHYSICIAN REQUEST. ID Date Data Source [id number] 03/02/2020 04:20:00 PM EDT [facility] Value Range Interpretation Code Description Data Lili rce(s) Supporting Document(s) Lactate [Moles/volume] in Serum or Plasma 1.6 MMOL/L 0.2 - 2.2 [facility] ID Date Data Source [id number] 03/02/2020 04:10:00 PM EDT [facility] Name Value Range Interpretation Code Description Data [facility](s) Supporting Document(s) CBC NO DIFF [facility] ital COMPLETE BLOOD COUNT Leukocytes [#/volume] in Blood by Automated count 4.8 10^3/uL 4.2 - 1 1.0 [facility] Erythrocytes [#/volume] in Blood by Automated count 4.69 10^6/uL 4. 20 - 5.40 [facility] Hemoglobin [Mass/volume] in Blood 15.4 g/dL 12.0 - 16.0 [facility] Hematocrit [Volume Fraction] of Blood by Automated count 47.3 % 3 7.0 - 47.0 H [facility] Erythrocyte mean corpuscular volume [Entitic volume] b y Automated count 100.9 fL 81.0 - 101 [facility] Erythrocyte mean corpuscular hemoglobin [Entitic mass] by Automated count 32.8 pg 27.0 - 34.0 [facility] Erythrocyte mean corpuscular hemoglobin concentration [Mass/volume] by Automated count 32.6 g/dL 31.0 - 36.0 [facility] Erythrocyte distribution width [Ratio] by Automated count 12.5 % 11.5 - 14.5 [facility] Platelets [#/volume] in Blood by Automated count 243 10^3/uL 150 - 45 0 [facility] Platelet mean volume [Entitic volume] in Blood by Automated count 10.1 fL 7.4 - 10.4 [facility] ID Date Data Source [id number] 03/02/2020 04:10:00 PM EDT [facility] Name Value Range Interpretation Code Description Data [facility](s) Supporting Document(s) [facility] R [facility] COL[facility] yellow NORMAL: Yellow [facility] CLARITY clear NORMAL: Clear [facility] Specific gravity of Urine by Test strip 1.010 1.001 - 1.030 [facility] pH 7 5 - 9 [facility] al Glucose [Mass/volume] in Urine by Test strip NORM NORMAL: Negat bertha [facility] Bilirubin.total [Presence] in Urine by Test strip NEG NORMAL: Negative [facility] Ketones [Presence] in Urine by Test strip NEG NORMAL: Negative [facility] Protein [Mass/volume] in Urine by Test strip NEG NORMAL: Negat bertha [facility] Nitrite [Presence] in Urine by Test strip NEG NORMAL: Negative [facility] BLOOD NEG NORMAL: Negative [facility] Leukocyte esterase [Presence] in Urine by Test strip NEG PATRICIO L: Negative [facility] Urobilinogen [Mass/volume] in Urine by Test strip NOR less amanda n 1.0 mg/dL [facility] MICROSCOPIC Not Indicate [facility] ID Date Data Source [id number] 02/11/2020 10:49:00 AM EDT [facility] [address] [place] [address] PHONE: [phone] FAX: [phone] Name .................. : JENNIE Jasso Acct Number.................. : [id number] ROOM. ................. : Number ................... : [id number] Stay type ............. : O/P Discharge Date......... ... : 02/10/20 Admit Date ......... : 02/10/20 Admit Phys .................... : MURRAY MORRIS Date of ....... : 1975 Family Phys ................... : SAUMYA Phone .................. : [phone] Age ................................ : 44 Film# .................. .:[id number] Sex ................................. : F Unsigned transcriptions are preliminary reports and do not represent a medical or legal document MRI BRAIN W/O CONTRAST [id number] COMPLETE:02/10/20 15:02 [facility] [id number] (REASON FOR PROCEDURE HEADACHES; ? DEMYELINATING DISEASE MRI OF THE BRAIN WITHOUT CONTRAST: FINDINGS: There are a few punctate nonspecific foci of increased signal intensity at the periventricular and subcortical white matter at bilateral frontoparietal regions and at bilateral occipitoparietal regions on the FLAIR and T2-weighted images. The largest of these areas of increased signal intensity measures up to about 1 cm at the left occipitoparietal region adjacent to the trigone of the left lateral ventricle. There is no mass, mass effect, midline shift, extra-axial fluid collection or intracranial hemorrhage. The ventricles are normal size and configuration. The craniocervical junction is within normal limits. Normal FLOW voids are present within the major intracranial vessels. No acute infarction is identified. The orbits are unremarkable. There is mild mucosal thickening at the ethmoidal air cells and at the left maxillary sinus. A small mucosal retention cyst is seen at the left maxillary sinus. IMPRESSION: There are a few nonspecific foci of increased signal intensity at the periventricular/subcortical white matter on the FLAIR and T2-weighted images. Such foci are nonspecific and can be seen without clinical consequence. This may be secondary to microvascular disease or from migraines. I cannot exclude the possibility of demyelinating process, such as multiple sclerosis as a possible etiology. Correlate clinically and suggest follow up. No acute disease process. Mild ethmoidal and left maxillary sinus disease. Electronically Reviewed and Signed By Trav Blanco MD , 02/11/20 10:49, [facility] Transcribe Initials: DAINA , Transcribe Date: 02/10/20 21:02, Dictation Date: Copy for: MURRAY Wiggins via fax Copy for: [address] [place] [address] REC Page 1 of 1 Name Value Range Interpretation Code Description Data Lili rce(s) Supporting Document(s) ID Date Data Source [id number] 02/05/2020 12:49:00 PM EDT [facility] [address] [place] [address] PHONE: [phone] FAX: [phone] Name .................. : JENNIE Jasso Acct Number.................. : [id number] ROOM. ................. : Number ................... : [id number] Stay type ............. : O/P Discharge Date......... ... : 02/04/20 Admit Date ......... : 02/04/20 Admit Phys .................... : MURRAY MORRIS Date of ....... : 1975 Family Phys ................... : SAUMYA Phone .................. : [phone] Age ................................ : 44 Film# .................. .:[id number] Sex ................................. : F Unsigned transcriptions are preliminary reports and do not represent a medical or legal document CT ABD & PELV W/ORAL/IV CONTR [id number] COMPLETE:02/04/20 11:54 06420 (REASON FOR ABDOMEN: HX PROBABLE FIBROMYLAGIA, ABD PAIN, DISTENTION CT OF THE ABDOMEN AND PELVIS WITH CONTRAST ENHANCEMENT: FINDINGS: Some bibasilar scarring noted. The liver, spleen and adrenals appear normal. Cyst in the midportion of the left kidney measuring 7.9 mm. Moderate amount of stool in the colon. The pancreas appears normal. The gallbladder is contracted. There is no free fluid or focal inflammation identified. The gynecological structures appear normal. The bladder is within normal limits. No signs of any diverticulitis. The appendix is not visualized, but there is no signs of any inflammation in the right lower quadrant. Some air in the right upper quadrant noted, but this air does appear to be within the duodenal sweep and some adjacent small bowel loops in that region. IMPRESSION: Large amount of stool in the colon. No other definite abnormalities identified with no acute pathology noted. While performing the above CT examination, radiation dose reduction was accomplished utilizing automated exposure control, adjusting of the mA and kV based on the patient's body size and/or the use of imperative reconstructive techniques. CT dose: 442.9 mGycm Contrast agent in mL: 75 Isovue 370 Method of administration: Intravenous Electronically Reviewed and Signed By ANGEL GERBER MD , 02/05/20 12:49, [facility] Transcribe Initials: DAINA , Transcribe Date: 02/04/20 17:09, Dictation Date: Page 1 of 2 [place] [address] PHONE: [phone] FAX: [phone] Name .................. : JENNIE Jasso Acct Number.................. : [id number] ROOM. ................. : MR Number ................... : [id number] Stay type ............. : O/P Discharge Date......... ... : 02/04/20 Admit Date ......... : 02/04/20 Admit Phys .................... : MURRAY ARTURO Date of ....... : 1975 Family Phys ................... : SAUMYA Phone .................. : [phone] Age ................................ : 44 Film# .................. .:[id number] Sex ................................. : F Unsigned transcriptions are preliminary reports and do not represent a medical or legal document CT ABD & PELV W/ORAL/IV CONTR [id number] COMPLETE:02/04/20 11:54 03910 (REASON FOR ABDOMEN: HX PROBABLE FIBROMYLAGIA, ABD PAIN, DISTENTION Copy for: MURRAY Wiggins via fax Copy for: 710 MED REC Page 2 of 2 Name Value Range Interpretation Code Description Data Lili rce(s) Supporting Document(s) Procedure Social History Code Duration Value Status Description Data Source(s ) 06/02/2020 12:00:00 AM EST Patient is a current smoker, smokes every day completed Patient is a current smoker, smokes every day [facility] ( [facility]) Vital Signs ID Date Data Source UNK Name Value Range Interpretation Code Description Data Source(s) Oxygen saturation in Arterial blood by Pulse oximetry 98 % 98 % [facility] ([facility]) Body temperature 35.7 Marya 35.7 Marya [facility] ( [facility]) Body temperature 96.3 [degF] 96.3 [degF] [facility] ([facility]) Heart rate 95 /min 95 /min [facility] ([facility]) Diastolic blood pressure 60 mm[Hg] 60 mm[Hg] [facility] ([facility]) Systolic blood pressure 98 mm[Hg] 98 mm[Hg] [facility] ([facility]) Body mass index (BMI) [Ratio] 15.0 kg/m2 15.0 k g/m2 [facility] ([facility]) Body weight 86.00 [lb_av] 86.00 [lb_av] [facility] Practice) Body height 63.50 [in_i] 63.50 [in_i] [facility] ([facility]) 5'3.50" Oxygen saturation in Arterial blood by Pulse oximetry 98 % 98 % [facility] ([facility] ) Body mass index (BMI) [Ratio] 20.2 kg/m2 20.2 k g/m2 [facility] ([facility] ) Body weight 114.38 [lb_av] 114.38 [lb_av] [facility] T ([facility] ) Body height 63.1 [in_i] 63.1 [in_i] [facility] ([facility] ) 5'3.10" Heart rate 84 /min 84 /min [facility] ([facility] ) Diastolic blood pressure 64 mm[Hg] 64 mm[Hg] [facility] ([facility] ) Systolic blood pressure 110 mm[Hg] 110 mm[Hg] M EDENT ([facility]) Body weight 51.710 kg 51.710 kg [facility] ([facility], ) Body mass index (BMI) [Ratio] 20.2 kg/m2 20.2 k g/m2 [facility] ([facility], ) Body weight 114.00 [lb_av] 114.00 [lb_av] [facility] T ([facility], ) Body height 63 [in_i] 63 [in_i] [facility] ([facility], ) 5'3" Diastolic blood pressure 65 mm[Hg] 65 mm[Hg] [facility] ([facility], ) Systolic blood pressure 111 mm[Hg] 111 mm[Hg] M EDENT ([facility], ) Diastolic blood pressure 72 mm[Hg] 72 mm[Hg] eCW1 ([facility]) Systolic blood pressure 105 mm[Hg] 105 mm[Hg] e CW1 ([facility]) Body temperature 100.0 [degF] 100.0 [degF] eCW1 ([facility]) Respiratory rate 22 /min 22 /min eCW1 ([facility]) Heart rate 97 /min 97 /min eCW1 ([facility]) Body mass index (BMI) [Ratio] 25.78 kg/m2 25.78 kg/m2 eC1 ([facility]) Body height 53 [in_us] 53 [in_us] eCW1 ([facility]) Body weight Measured 103 [lb_av] 103 [lb_av] eC W1 ([facility]) Patient Treatment Plan of Care Planned Activity Planned Date Details Description Data Source (s) 200 ACTUAT Albuterol 0.09 MG/ACTUAT Metered Dose Inhal er [ProAir] 07/07/2019 12:00:00 AM EST eCW1 ([facility])
[2020-06-14] MEDS ORDERED: MULTIVITAMIN -ADULT INJECTION 10 ML, THIAMINE INJection 100 MG, FOLIC ACID 1 MG in NS 1... IV ONE (17:15)
[2020-06-14 18:26] LABS: RSV AMPLIFICATION NEGATIVE (NEGATIVE)
[2020-06-14 18:46] LABS: BASO % 0.7 % (0.0-1.0); EOS % 0.3 % (0.0-3.0); HEMATOCRIT 45.1 % (36.0-47.0); HEMOGLOBIN 14.5 g/dl (12.0-15.5); LYMPH # 1.1 10^3/uL (1.5-5.0); LYMPH % 35.2 % (24.0-44.0); MEAN CORPUSCULAR HEMOGLOBIN 33.3 pg (27.0-33.0); MEAN CORPUSCULAR HGB CONC 32.2 g/dl (32.0-36.5); MEAN CORPUSCULAR VOLUME 103.4 fl (80.0-96.0); MONO # 0.3 10^3/uL (0.0-0.8); MONO % 9.3 % (0.0-5.0); NEUTROPHILS # 1.6 10^3/uL (1.5-8.5); NEUTROPHILS % 54.5 % (36.0-66.0); PLATELET COUNT, AUTOMATED 200 10^3/uL (150-450); RED BLOOD COUNT 4.36 10^6/uL (4.00-5.40)
--- OUTSIDE RECORDS SUMMARY | 2020-06-14 18:50 | CCD ---
Author Author [facility] Organization [facility] Address Unknown Phone Unavailable Care Team Providers Care Captain/Airline Pilot Name Role Phone BRAYDEN GRESHAM MD Unavailable [...] Unavailable Unavailable Feliciano GAO MD Unavailable Unavailable Feliicano GAO MD Unavailable Unavailable Feliciano GAO MD [...] Unavailable Feliciano GAO MD Unavailable Unavailable Feliciano GOA MD Unavailable Unavailable Feliciano GAO MD Unavailable Unavailable Fleiciano GAO MD Unavailable Unavailable Feliciano GAO MD Unavailable Unavailable Feliciano GAO MD Unavailable Unavailable Feliciano GAO MD Unavailable Unavailable Feliciano GAO MD Unavailable Unavailable Vaughnai, [phone] Felipe Minor MD Unavailable Kailey vailable Vaughns, [phone] Felipe Minor MD Unavailable Kailey vailable Vaughns, [phone] Felipe Minor MD Unavailable Kailey vailable Ed [...] MD Unavailable Unavailable Feliciano Ghotra RN MS EVAPORATOR CDE Unavailable Unavailabl Feliciano Mendes RN MS EVAPORATOR CDE Unavailable Unavailabl Feliciano Mendes RN MS EVAPORATOR CDE Unavailable Unavailabl Feliciano Mendes RN MS EVAPORATOR CDE Unavailable Unavailabl Feliciano Mendes RN MS EVAPORATOR CDE Unavailable Unavailabl Feliciano Mendes RN MS EVAPORATOR CDE Unavailable Unavailabl Feliciano Mendes RN MS EVAPORATOR CDE Unavailable Unavailabl Feliciano Mendes RN MS EVAPORATOR CDE Unavailable Unavailabl Feliciano Mendes RN MS EVAPORATOR CDE Unavailable Unavailabl Feliciano Mendes RN MS EVAPORATOR CDE Unavailable Unavailabl Feliciano Mendes RN MS EVAPORATOR CDE Unavailable Unavailabl Feliciano Mendes RN MS EVAPORATOR CDE Unavailable Unavailabl Feliciano Mendes RN MS EVAPORATOR CDE Unavailable Unavailabl Feliciano Mendes RN MS EVAPORATOR CDE Unavailable Unavailabl Feliciano Mendes RN MS EVAPORATOR CDE Unavailable Unavailabl Feliciano Mendes RN MS EVAPORATOR CDE Unavailable Unavailabl Feliciano Mendes RN MS EVAPORATOR CDE Unavailable Unavailabl Feliciano Mendes RN MS EVAPORATOR CDE Unavailable Unavailabl Feliciano Mendes RN MS EVAPORATOR CDE Unavailable Unavailabl Feliciano Mendes RN MS EVAPORATOR CDE Unavailable Unavailabl Feliciano Mendes RN MS EVAPORATOR CDE Unavailable Unavailabl Feliciano Mendes RN MS EVAPORATOR CDE Unavailable Unavailabl Feliciano Mendes RN MS EVAPORATOR CDE Unavailable Unavailabl Feliciano Mendes RN MS EVAPORATOR CDE Unavailable Unavailabl Feliciano Mendes RN MS EVAPORATOR CDE Unavailable Unavailabl Feliciano Mendes RN MS EVAPORATOR CDE Unavailable Unavailabl Feliciano Mendes RN MS EVAPORATOR CDE Unavailable Unavailabl sharee Ghotra, Feliciano Maria RN MS EVAPORATOR CDE Unavailable Unavailabl Feliciano Mendes RN MS EVAPORATOR CDE Unavailable Unavailabl sharee Ghotra, Feliciano Maria RN MS EVAPORATOR CDE Unavailable Unavailabl sharee Ghotra, Feliciano Maria RN MS EVAPORATOR CDE Unavailable Unavailabl e Brandin, Feliciano Maria RN MS EVAPORATOR CDE Unavailable Unavailabl sharee Ghotra, Feliciano Maria RN MS EVAPORATOR CDE Unavailable Unavailabl e Feliciano Ghotra RN MS EVAPORATOR CDE Unavailable Unavailabl sharee Ghotra, Feliciano Maria RN MS EVAPORATOR CDE Unavailable Unavailabl e Brandin, Feliciano Maria RN MS EVAPORATOR CDE Unavailable Unavailabl e Brandin, Feliciano Maria RN MS EVAPORATOR CDE Unavailable Unavailabl e Brandin, Feliciano Maria RN MS EVAPORATOR CDE Unavailable Unavailabl e Brandin, Feliciano Maria RN MS EVAPORATOR CDE Unavailable Unavailabl e Brandin, Feliciano Maria RN MS EVAPORATOR CDE Unavailable Unavailabl e Brandin, Feliciano Maria RN MS EVAPORATOR CDE Unavailable Unavailabl e Brandin, Feliciano Maria RN MS EVAPORATOR CDE Unavailable Unavailabl sharee Ghotra, Feliciano Maria RN MS EVAPORATOR CDE Unavailable Unavailabl Feliciano Mendes RN MS EVAPORATOR CDE Unavailable Unavailabl Feliciano Mendes RN MS EVAPORATOR CDE Unavailable Unavailabl Feliciano Mendes RN MS EVAPORATOR CDE Unavailable Unavailabl Feliciano Mendes RN MS EVAPORATOR CDE Unavailable Unavailabl Feliciano Mendes RN MS EVAPORATOR CDE Unavailable Unavailabl Feliciano Mendes RN MS EVAPORATOR CDE Unavailable Unavailabl Feliciano Mendes RN MS EVAPORATOR CDE Unavailable Unavailabl Feliciano Mendes RN MS EVAPORATOR CDE Unavailable Unavailabl Feliciano Mendes RN MS EVAPORATOR CDE Unavailable UnavailKETTY Felipe MD Unavailable Unavailable [...] Unavailable Louisa SHIRLEY MD Unavailable Unavailable Louisa SIHRLEY MD Unavailable Unavailable Louisa SHIRLEY MD Unavailable Unavailable Louisa SHIRLEY MD Unavailable Unavailable Louisa SHIRLEY MD Unavailable Unavailable Louisa SHIRLEY MD Unavailable Unavailable Louisa SHIRLYE MD Unavailable Unavailable Louisa SHIRLEY MD Unavailable [...] is protected by Article 27-F of the [facility] Public Health law. If you continue you may have access to information: Regarding HIV / AIDS; Provided by facilities licensed or operated by the [facility] Office of Mental Health; or Provided by the [facility] Office for People With Developmental Disabilities. If such information is present, then the following [facility] mandated warning applies: This information has [...] law may result in a fine or assisted sentence or both. A general authorization for the release of medical or other information is NOT sufficient authorization for further disc losure. Allergies and Adverse Reactions Type Description Substance Reaction Status Data Source(s ) Drug Class NO KNOWN ALLERGIES NO KNOWN ALLERGIES [facility] Family History Family Member Name Family Member Gender Family Member Status Date o f Status Description Data Source(s) Unknown Male Problem [facility] ([facility]) Unknown Unknown Problem [facility] ([facility]) Unknown Male Problem MED[facility] ([facility] ) Unknown Unknown Problem [facility] ([facility]) Encounters Encounter Providers Location Date Indications Data Source(s ) Outpatient Attender: JANA CASTRO MD 10/14/2020 12:0 0:00 AM [facility] Outpatient Attender: Candace Ghotra RN MS EVAPORATOR CDE [facility] [place] 06/02/2020 12:00:00 PM EST [facility] Emergency [facility] [place]: [id number] Iván Celeste MD 03/02/2020 03:24:00 PM EDT - 03/02/2020 05:54:00 PM EDT [facility] Patient discharged. Outpatient Attender: KETTY DUNCAN MD 02/14/2020 12:02:33 A M EDT [facility] Outpatient Attender: [facility] [id number] Iván Celeste MD 02/10/2020 02:04:00 PM EDT - 02/10/2020 03:04:00 PM EDT [facility] Outpatient Attender: JANA [facility] [id number] Iván Celeste MD 02/04/2020 11:48:00 AM EDT - 02/04/2020 12:48:00 PM EDT [facility] Outpatient Attender: Makenzie Horan MD Physical Therapy 01/18 02:00:00 PM EDT MEDENT ([facility]) Outpatient Attender: KETTY Pham/Stephanie/Cole/Ranjeet blevins 12/17/2019 03:00:00 PM EDT MED[facility] ([facility]) Outpatient Attender: KETTY DUNCAN MD 11/11/2019 07:59:58 P M EDT [facility] Outpatient Attender: KETTY DUNCAN MD 11/01/2019 12:18:24 A M EDT [facility] Outpatient Referrer: BRAYDEN GRESHAM MD 07/16/2019 01:09:0 0 PM EST [facility] Radiology Imaging [facility] [address] [phone] 07/07/2019 12:00:00 AM EST eCW1 ([facility]) Outpatient Attender: KETTY DUNCAN MD 04/23/2019 06:19:01 A M EST [facility] Outpatient Attender: EKTTY DUNCAN MD 04/22/2019 01:16:02 P M [facility] Medications Medication Brand Name Start Date Product Form Dose Route Admi nistrative Instructions Pharmacy Instructions Status Indications Reaction Description Data Source(s) Replesta 06/03/2020 12:00:00 AM EST active [facility] ([facility]) No Active Medications 06/02/2020 12:00:00 AM EST completed [facility] ([facility]) Ergocalciferol 92158 UNT Oral Capsule [Drisdol] Drisdol 01/19/2020 12:00:00 AM EDT ORAL active MEDENT ([facility]) No Active Medications 01/19/2020 12:00:00 AM EDT completed MEDENT ([facility]) Lactulose 667 MG/ML Oral Solution Lactulose 12/17/2019 12:00:00 AM EDT ORAL active MEDENT ([facility], ) 200 ACTUAT Albuterol 0.09 MG/ACTUAT Mete red Dose Inhaler [ProAir] ProAir HFA 108 (90 Base) MCG/ACT ProAir HFA 108 (90 Base) MCG/ACT 07/07/2019 12:00:00 AM EST active 2 puffs as neede d eCW1 ([facility]) Insurance Providers Payer name Policy type / Coverage type Policy ID Covered libertarian ID Covered libertarian's relationship to escobar Policy Escobar Plan Information [place] HUMANA [id number] [facility] [id number] [place] [employer] - O/P [id number] 01 [id number] [facility] Region P [id number] O [id number] HUMANA [place]AST REG O [id number] S [id number] For Life P UNAVAILABLE O U NAVAILABLE PGBA [place] [id number] [facility] [id number] [place] Humana Commercial [id number] Family Dependent [id number] [place] [id number] 01 [id number] [place] [employer] Commercial [id number] Family Dependent [id number] [place] [id number] 01 [id number] [place] [id number] 01 [id number] [place] [id number] 01 [id number] [place] [id number] 01 [id number] [place] [employer] Commercial [id number] Family Dependent [id number] [place] [employer] [id number] HU2 [id number] [place] [employer] Commercial [id number] Family Dependent [id number] N REGIONAL CLAIMS YUMIKO-O/P [id number] 01 [id number] [facility] Health Maintenance Organization (O) [id number] Family Dependent [id number] [place] (2018) Health Maintenance Organization (O) [id number] Family Dependent [id number] Hum[employer] ( East) [id number] 0 [id number] [facility] [id number] 1 [id number] U [id number] Self [id number] [facility] Federal Service Medigap Part B [id number] Family De pendent [id number] [place] Referrals Medigap Part B [id number] Family Depen dent [id number] [place] Referrals Commercial [id number] Family Dependent [id number] [facility] Federal Service Commercial [id number] Family Depend ent [id number] [facility] Federal Service Commercial [id number] Family Depend ent [id number] [facility] Health Maintenance Organization (HMO) [id number] Family Dependent [id number] [facility] Federal Service Commercial [id number] Family Depend ent [id number] [facility] Health Maintenance Organization (O) [id number] Family Dependent [id number] PGBA [place] I[place] O [id number] S [id number] [facility] Federal Service Commercial [id number] Family Depend ent [id number] U [id number] Spouse [id number] [facility] Health Maintenance Organization (O) [id number] Family Dependent [id number] [facility] Federal Service Commercial [id number] Family Depend ent [id number] [facility] Federal Service Commercial [id number] Family Depend ent [id number] Region 1 Prime Commercial [id number] Family Dependent [id number] PGBA NORTH REGION [id number] HU2 [id number] PGBA NORTH REGION [id number] HU2 [id number] PGBA NORTH INA O [id number] P [id number] PGBA NORTH REGION [id number] HU2 [id number] PGBA NORTH INA P [id number] P [id number] [facility] O [id number] U [id number] O [id number] U [id number] Problems, Conditions, and Diagnoses Code Display Name Description Problem Type Effective Dates Data Source(s) I10 Essential (primary) hypertension Essential (primary) h ypertension Diagnosis 03/02/2020 03:24:00 PM EDT [facility] R531 Weakness Weakness Diagnosis 03/02/2020 03:24:00 PM ED T [facility] R51 Headache Headache Diagnosis 02/10/2020 02:04:00 PM ED [facility] R930 Abnormal findings on diagnos tic imaging of skull and head, not elsewhere classified Abnormal findings on diagnostic imaging of skull and head, not elsewhere classified Diagnosis 02/10/2020 02:04:00 PM EDT [facility] K5900 Constipation, unspecified Constipation, unspecified Di agnosis 02/04/2020 11:48:00 AM EDT [facility] R1084 Generalized abdominal pain Generalized abdominal pain Diagnosis 02/04/2020 11:48:00 AM EDT [facility] Surgeries/Procedures Procedure Description Date Indications Data Source(s) Influenza A+B 07/07/2019 12:00:00 AM EST eCW1 ([facility]) Results ID Date Data Source [id number] 06/03/2020 02:44:00 PM EST [facility] ([facility]) Name Value Range Interpretation Code Description Data Lili rce(s) Supporting Document(s) Folate [Mass/volume] in Serum or Plasma 15.43 ng/mL 1.1-20.0 MEDENT ([facility]) test add on to labs from 2019 Cobalamin (Vitamin B12) [Mass/volume] in Serum or Plasma 500 pg/mL 2 11-911 [facility] ([facility]) test add on to labs from [id number] 2019 ID Date Data Source [id number] 06/02/2020 02:25:00 PM EST [facility] ([facility]) Name Value Range Interpretation Code Description Data Lili rce(s) Supporting Document(s) Follitropin [Units/volume] in Serum or Plasma 3.5 miU/ml [facility] ([facility]) Interpretation: Reference Rang es Males 1.4 - 18.1 miu/ml Normally Menstruating Females Follicular Phase: 2.5 - 10.2 miu/ml Midcycle Phase: 3.4 - 33.4 miu/ml Luteal Phase: 1.5 - 9.1 miu/ml Post Menopausal Female: 23.0 - 116.3 miu/ml Vitamin D+Metabolites [Mass/volume] in Serum or Plasma 10.77 ng/ mL 30-100 Below low normal [facility] ([facility]) <content>Recommended Levels for Circulat ing 25-hydroxy Vitamin D:</content>
<content>Vitamin D Status 25-OH Vitamin D Test Result</content>
<content>Deficient <10ng/mL</content>
<content>Insufficient 10- 29ng/mL</content>
<content>Sufficient 30-100ng/mL</content>
<content>Potential Intoxication >100ng/mL</content>
<content>A pediatric reference range has not been established using this method.</content>
<content></content> Lutropin [Units/volume] in Serum or Plasma 0.1 miU/ml MED[facility] ([facility]) <content></content>
<content>In terpretation: Reference Ranges</content>
<content>Males (20-70 yrs) : 1.5 - 9.3 miu/ml</content>
<content>Normally Menstruating Females</content>
<content>Follicular Phase: 1.9 - 12.5 miu/ml</content>
<content>Midcycle Phase: 8.7 - 76.3 miu/ml</content>
<content>Luteal Phase: 0.5 - 16.9 miu/ml</content>
<content> Female: <0.1 - 1.5 miu/ml</content>
<content>Post Menopausal Female: 15.9 - 54.0 miu/ml</content>
<content></content>
<content></content> Thyrotropin [Units/volume] in Serum or Plasma 3.096 mIU/ml 0.350-5.50 0 MED[facility] ([facility]) E26iii 12.6 pg/mL [facility] Results Confirmed by Repeat Analysis. PLEASE NOTE: [...] Serum or Plasma 58.3 pg/mL 18.5-88 .0 [facility] ([facility]) Venipuncture Laboratory test result MEDE NT ([facility]) Creatine kinase [Enzymatic activity/volume] in Serum or Plasma 156 U/L 26-174 [facility] ([facility]) ID Date Data Source [id number] 06/02/2020 02:25:00 PM EST [facility] ([facility]) Name Value Range Interpretation Code Description Data Lili rce(s) Supporting Document(s) Urea nitrogen [Moles/volume] in Serum or Plasma 7 mg/dL 6-20 [facility] ([facility]) Glucose [Mass/volume] in Serum or Plasma 77 mg/dL 74-106 [facility] ([facility]) [place] [employer] Association (ADA) Recommended Range is 65-99 mg/dL Creatinine [Mass/volume] in Serum or Plasma 0.7 mg/dL 0.5-1.3 [facility] ([facility]) Sodium [Moles/volume] in Serum or Plasma 139 mmol/L 136-145 [facility] ([facility]) Potassium [Moles/volume] in Serum or Plasma 4.6 mmol/L 3.5-5.3 [facility] ([facility]) Anion Gap 10 mmol/L 7-16 [facility]) Carbon dioxide, total [Moles/volume] in Serum or Plasma 27 meq/L 20 -31 [facility] ([facility]) Chloride [Moles/volume] in Serum or Plasma 102 mmol/L 98-107 [facility] ([facility]) Alkaline phosphatase [Enzymatic activity/volume] in Serum or Plasma 67 U/L 46-116 [facility] ([facility]) eGFR-female 91 mL/m/1.73m [facility] ([facility]) eGFR-Aa female 110 mL/m/1.73m MED[facility] ([facility]) <content>Normal Kidney Function or Mild Disease GFR >59 mL/min/1.73m2</content>
<content>Chronic Kidney Disease GFR 15-59 mL/min/1.73m2</content>
<content>Renal Failure GFR <15 mL/min/1.73m2</content>
<content></content> Protein [Mass/volume] in Serum or Plasma 7.0 g/dL 6.4-8.3 MEDENT ([facility]) Results may reflect a potential interfer ence in Total Protein results in patients receiving dextran as blood volume expanders. Alanine aminotransferase [Enzymatic activity/volume] in Seru m or Plasma 19 U/L 4-36 [facility] ([facility]) Effective 12/02/2016: [facility] has indicated interference with the drugs sulfasalazine and sulfapyridine. They suggest collection should occur prior to drug administration due to falsely depressed results. Aspartate aminotransferase [Enzymatic activity/volume] in Serum or Plasma 33 U/L 8-33 [facility] Bilirubin.total [Mass/volume] in Serum or Plasma 0.8 mg/dL 0.3-1.2 [facility] ([facility]) Albumin [Mass/volume] in Serum or Plasma 4.9 g/dL 3.6-5.1 [facility] ([facility]) Albumin/Globulin [Mass Ratio] in Serum or Plasma 2.3 Ratio 1.0-2.0 Above high normal [facility] ([facility]) Globulin [Mass/volume] in Serum by calculation 2.1 g/dL 1.9-3.7 [facility] ([facility]) Calcium [Mass/volume] in Serum or Plasma 10.0 mg/dL 8.9-10.5 [facility] ([facility]) ID Date Data Source [id number] 06/02/2020 02:25:00 PM EST [facility] ([facility]) Name Value Range Interpretation Code Description Data Lili rce(s) Supporting Document(s) Lactate dehydrogenase [Enzymatic activit y/volume] in Serum or Plasma by Lactate to pyruvate reaction 260 U/L 120-246 Above high normal ME DENT ([facility]) Phosphate [Moles/volume] in Serum or Plasma 3.9 mg/dL 2.7-4.5 [facility] ([facility]) 11/10/2019-According to [employer] Blood sa mples from some patients with monoclonal gammopathies may produce falsely elevated phosphorous results with this assay. Urate [Mass/volume] in Serum or Plasma 5.1 mg/dL 2.6-7.2 [facility] ([facility]) ID Date Data Source [id number] 06/02/2020 02:25:00 PM EST [facility] ([facility]) Name Value Range Interpretation Code Description Data Lili rce(s) Supporting Document(s) WBC. 3.65 x10E3/uL 4.2-12.0 Below low normal MEDENT ([facility]) Erythrocytes [#/volume] in Blood by Automated count 4.88 x10E6/uL 3.9 -5.4 [facility] ([facility]) MCV 105.7 fL 80-98 Above high normal MED[facility] ([facility]) MCH 34.1 pg 27-33 Above high normal [facility] ([facility]) Hematocrit [Volume Fraction] of Blood by Automated count 51.6 % 36-47 Above high normal MED[facility] ([facility]) Hemoglobin [Mass/volume] in Blood 16.7 g/dL 12.0-16.0 Above high no rmal [facility] ([facility]) Platelets [#/volume] in Blood by Automated count 236 x10E3/uL 135-420 [facility] ([facility]) MCHC 32.3 g/dL 32-36 [facility]) RDW 13.6 % 11.2-15.2 [facility]) % Karmen 52.2 % 41.0-80.0 [facility]) MPV 8.5 fL 7.0-12.3 [facility] ([facility]) %Lym 41.0 % 10.0-45.2 [facility] ([facility]) %Murray 4.8 % 2.0-13.0 [facility]) %Baso 0.9 % 0.0-3.0 [facility] ([facility]) %Eos 1.2 % 0.0-8.0 [facility]) Neut 1.9 x10E3/uL 2.0-8.1 Below low normal [facility] ([facility]) Lymp 1.5 x10E3/uL 0.6-3.1 [facility] Murray 0.2 x10E3/uL 0.0-1.0 [facility] ([facility]) Eos 0.0 x10E3/uL 0.0-0.6 [facility] ([facility]) Baso 0.0 x10E3/uL 0.0-0.2 [facility] ([facility]) ID Date Data Source [id number] 03/02/2020 03:24:00 PM EDT [facility] 1 OrderSheet [facility] Emergency Department [address] [place] [address] Phone #: ext- [phone] 03/02/2020 15:08 Patient: [...] Navas Norma MD; Val Werner 2 OrderSheet [facility] Emergency Department [address] [place] [address] Phone #: ext- [phone] 03/02/2020 15:08 Patient: ERIN VANN Sex: F : 1975 Age: 44y[Electronically signed by Patricio Shirley MD (19:10 03/02/2020)][Electronically signed by Valeriy Bocanegra (08:59 03/25/2020)][Electronically locked by Valeriy Bocanegra (08:59 03/25/2020)] Name Value Range Interpretation Code Description Data Lili rce(s) Supporting Document(s) ID Date Data Source [id number] 03/02/2020 03:24:00 PM EDT [facility] 1 Medication Reconciliation Report [facility] Emergency Department [address] [place] [address] Phone #: ext- [phone] 03/02/2020 15:08 Patient: ERIN VANN Sex: F [...] rce(s) Supporting Document(s) ID Date Data Source [id number] 03/02/2020 03:24:00 PM EDT [facility] 1 Medication Administration Record [facility] Emergency Department [address] [place] [address] Phone #: ext- [phone] 03/02/2020 15:08 Patient: ERIN VANN Sex: F : 1975 Age: 44yWeight: 50.3 kgHeight/Length: 63 inBMI: 19.6ALLERGIES: No Known Drug Allergy Date/Time Medication Administered Medication OrderedStart NS [IV] IV NS 1000 mL Bolus : Bolus [id number]:[id number] 0 03/02/2020 Dose: IV Fluids mL (X1)Val Navas R.N. Bolus: 1000 mL over 1 hour(s)---- Dispensed: 1000 mL bagStop Site: #1 right [id number] 03/02/2020Charlette Marshall R.N. Name Value Range Interpretation Code Description Data Lili rce(s) Supporting Document(s) ID Date Data Source [id number] 03/02/2020 03:24:00 PM EDT [facility] 1 General Instructions [facility] Emergency Department [address] [place] [address] Phone #: ext- [phone] 03/02/2020 15:08 Patient: ERIN VANN Sex: F : 1975 Age: 44yGeneralized weakness.INSTRUCTIONSNo strenuous activity.(return if worse or any new symptoms. it is imperative that you follow up with your primary care physician.Please also follow up with your rubber compounder. make sure you eat daily. it is [...] reasons). Don't skip meals. 2 General Instructions [facility] Emergency Department [address] [place] [address] Phone #: ext- [phone] 03/02/2020 15:08 [id number] Sex: F : 1975 Age: 44y Unless [...] red color) Loss of consciousness Severe headache [phone] [employer]. [address] [place] [address]. All rights reserved. This information is not intended as asubstitute for professional medical care. Always follow your healthcare professional's instructions. You have been given the following additional information: Weakness (Uncertain Cause) No strenuous activity. 3 General Instructions [facility] Emergency Department [address] [place] [address] Phone #: ext- [phone] 03/02/2020 15:08 Patient: ERIN VANN Sex: F : 1975 Age: 44y(Electronically signed by Patricio Shirley MD 03/02/2020 19:10) Name Value Range Interpretation Code Description Data Lili rce(s) Supporting Document(s) ID Date Data Source [id number] 03/02/2020 03:24:00 PM EDT [facility] 1 Clinical Report - Nurses [facility] Emergency Department [address] [place] [address] Phone #: ext- [phone] 03/02/2020 15:08 Patient: [...] believe its related to the passing out.).Treatment SET UP TECHNICIAN:None.SEPSIS SCREEN: SIRS Screen negative. Sepsis Screen negative. [...] R.N.ADDITIONAL SURGERIES: 2 Clinical Report - Nurses [facility] Emergency Department [address] [place] [address] Phone #: ext- [phone] 03/02/2020 15:08 [id number] Sex: F : 1975 Age: 44y no [...] 2 seconds. 3 Clinical Report - Nurses [facility] Emergency Department [address] [place] [address] Phone #: ext- [phone] 03/02/2020 15:08 Patient: ERIN VANN Sex: F [...] RR: 16. O2 saturation: 100%. --16:08 03/02/20 [facility] Tech, [place], ER Tech1 EKG time: (16:02 03/02/2020). EKG was performed by a tech and shown to the ED physician. --16:08 03/02/20 [facility] Tech, [place], ER Tech1 16:10 03/02/2020 Site [...] RR: 16. O2 saturation: 100%. --17:12 03/02/20 [facility] Tech, [place], ER Tech1 17:39 03/02/2020 IV Fluids NS via IV site #1 Discontinued: bag #1 completed upon discharge. Total amount infused: 1000 mL. IV patency established. IV site checked: no pain, redness, or swelling. IV flushed thoroughly. --17:54 03/02/20 Charlette Marshall R.N.DISPOSITION / DISCHARGE 17:03/02/20. BP: 118/84. MAP: 95. HR: 81. RR: 16. O2 saturation: 99%. Temp: 98.1 F. --17:29 03/02/20 [place] director of corporate strategy, [facility], Tech1 Discharge instructions provided and reviewed with the patient and spouse. Reviewed medication(s). Prescription(s) given to the patient. Reviewed referral to a primary care physician. Activity restrictions (rest) reviewed. Patient verbalized understanding. Written instructions provided in Occitan. --17:53 03/02/20 Charlette Marshall R.N. Departure time: 17:53 03/02/2020. --17:53 03/02/20 Charlette Marshall R.N. 17:54 03/02/20. Pain level now: 07/14. --17:54 03/02/20 Charlette Marshall R.N. 4 Clinical Report - Nurses [facility] Emergency Department [address] [place] [address] Phone #: ext- [phone] 03/02/2020 15:08 [id number] Sex: F : 1975 Age: 44yLocked/Released at 03/25/2020 08:59 by Valeriy Bocanegra, Name Value Range Interpretation Code Description Data Lili rce(s) Supporting Document(s) ID Date Data Source [id number] 03/02/2020 03:24:00 PM EDT [facility] 1 Clinical Report - Physicians/Mid Levels [facility] Emergency Department [address] [place] [address] Phone #: ext- [phone] 03/02/2020 15:08 [id number] Sex: F : 1975 Age: 44y Arrived- [...] NOTES 2 Clinical Report - Physicians/Mid Levels [facility] Emergency Department [address] [place] [address] Phone #: ext- [phone] 03/02/2020 15:08 --- [...] 110) 3 Clinical Report - Physicians/Mid Levels [facility] Emergency Department [address] [place] [address] Phone #: ext- [phone] 03/02/2020 15:08 Patient: [...] Male GFR Interprentation 20-49 yrs >60 mL/min [id number] yrs >56 mL/min Normal 60-69 yrs >49 mL/min Normal 70-79yrs>42 mL/min Normal 80 and above >35 mL/min Normal Female GFRInterpretation 20-39 yrs >60 mL/min Normal 40-49 yrs >58 mL/minNormal 50-59 yrs >51 mL/min Normal 60-69 yrs >45 mL/min [id number] yrs >39 mL/min Normal 80 and above >32 mL/min NormalLactic Acid: (BLADIMIR: 03/02/2020 16:00) ( [facility] 03/02/2020 16:20) Final results Test Result Flag Units (Reference) LACTIC ACID 1.6 MMOL/L (0.2 - 2.2)Lipase: (BLADIMIR: 03/02/2020 16:00) ( [facility] 03/02/2020 16:52) Final results Test Result Flag Units (Reference) LIPASE 35 U/L (13 - 60)Magnesium: (BLADIMIR: 03/02/2020 16:00) ( [facility] 03/02/2020 17:02) Final results Test Result Flag Units (Reference) MAGNESIUM 2.2 MG/DL (1.7 - 2.2)Urinalysis: (BLADIMIR: 03/02/2020 16:00) ( [facility] 03/02/2020 16:10) Final results Test Result Flag [...] results 4 Clinical Report - Physicians/Mid Levels [facility] Emergency Department [address] [place] [address] Phone #: ext- [phone] 03/02/2020 15:08 Patient: [...] NEGATIVE (NORMAL: NEGAT { KIT LOT # [id number] ){ KIT EXP DATE 03.16.21 ){ PROCEDURAL [...] her to f/u with her pcp and rubber compounder. pt further encouraged to return ifworse or any new symptoms. I encouraged her to drink plenty of fluids and to make sure she eats food.she needs to increase her caloric intake. pt and voiced understanding. Patient/family counseled. Disposition: Discharged. Condition: good and stable.CLINICAL IMPRESSION Generalized weakness. 5 Clinical Report - Physicians/Mid Levels [facility] Emergency Department [address] [place] [address] Phone #: ext- [phone] 03/02/2020 15:08 Patient: ERIN VANN Sex: F : 1975 Age: 44yINSTRUCTIONS No strenuous activity. (return if worse or any new symptoms. it is imperative that you follow up with your primary care physician. Please also follow up with your rubber compounder. make sure you eat daily. it is [...] rce(s) Supporting Document(s) ID Date Data Source [id number] 03/04/2020 08:05:00 AM EDT [facility] [address] [place], [place] [address] [address] RESPIRATORY CARE REPORT ==== ---------NAME------- NUMBER SEX AGE ADMIT DISC. XRAY# F/C TYPECUOMO ERIN L [id number] F 44 03/02/20 03/02/20 [id number] SB4 E/R DATE OF : 1975 M/R# [id number] #: [id number] LOCATION: EMERGENCY DEPT EKG [id number] COMP LETE:03/03/20 01:50 [place] [id number] PHYSICIAN: OWEN SHIRLEY NOR Name Value Range Interpretation Code Description Data Lili rce(s) Supporting Document(s) ID Date Data Source [id number] 03/02/2020 05:01:00 PM EDT [facility] Name Value Range Interpretation Code Description Data Lili rce(s) Supporting Document(s) Magnesium [Mass/volume] in Serum or Plasma 2.2 MG/DL 1.7 - 2.2 [facility] ID Date Data Source [id number] 03/02/2020 05:01:00 PM EDT [facility] Name Value Range Interpretation Code Description Data Lili rce(s) Supporting Document(s) COMPREHENSIVE METABOLIC PANEL [facility] COMPREHENSIVE METABOLIC PANEL Sodium [Moles/volume] in Serum or Plasma 141 mEq/L 134 - 153 [facility] Potassium [Moles/volume] in Serum or Plasma 3.9 mEq/L 3.6 - 5.0 [facility] Chloride [Moles/volume] in Serum or Plasma 103 mEq/L 98 - 107 [facility] Carbon dioxide, total [Moles/volume] in Serum or Plasma 27 MEQ/L 22 - 30 [facility] Glucose [Mass/volume] in Serum or Plasma 90 MG/DL 65 - 110 [facility] BUN 6 MG/DL 7 - 21 L [facility] al Creatinine [Mass/volume] in Serum or Plasma 0.5 MG/DL 0.7 - 1.5 L [facility] BUN/CREAT 12 8 - 27 [facility] al Protein [Mass/volume] in Serum or Plasma 7.5 G/DL 6.3 - 8.2 [facility] Albumin [Mass/volume] in Serum or Plasma 4.6 G/DL 3.9 - 5.0 [facility] Globulin [Mass/volume] in Serum by calculation 2.9 GM/DL 2.4 - 3.2 [facility] A/G RATIO 1.6 0.8 - 2.0 [facility] Calcium [Mass/volume] in Serum or Plasma 9.9 MG/DL 8.4 - 10.2 [facility] Bilirubin.total [Mass/volume] in Serum or Plasma <0.7 MG/DL 0.2 - 1.3 [facility] Alkaline phosphatase [Enzymatic activity/volume] in Serum or Plasma 89 U/L 38 - 126 [facility] Aspartate aminotransferase [Enzymatic activity/volume] in Serum or Plasma 21 U/L 5 - 40 [facility] Alanine aminotransferase [Enzymatic activity/volume] in Seru m or Plasma 16 U/L 7 - 56 [facility] Anion gap 3 in Serum or Plasma 11.0 mmol/L 8.0 - 16.0 [facility] AGE 44 yrs [facility] al NON-AA GFR >60 mL/min [facility] ital AFR AMER GFR >60 mL/min [facility] Male GFR In terprentation 20-49 [...] >32 mL/min Normal ID Date Data Source [id number] 03/02/2020 04:52:00 PM EDT [facility] Name Value Range Interpretation Code Description Data Lili rce(s) Supporting Document(s) Lipase [Enzymatic activity/volume] in Serum or Plasma 35 U/L 13 - 60 [facility] ID Date Data Source [id number] 03/02/2020 04:48:00 PM EDT [facility] Value Range Interpretation Code Description Data Lili rce(s) Supporting Document(s) HCG SERUM QUAL NEGATIVE NORMAL: NEGATIVE [facility] HCG SERUM QL REENTER NEGATIVE NORMAL: NEGATIVE [facility] { KIT LOT # [id number] ){ KIT EXP DATE 03.16.21 ){ PROCEDURAL CONTROL VALID ) ID Date Data Source [id number] 03/02/2020 04:42:00 PM EDT [facility] Value Range Interpretation Code Description Data Lili rce(s) Supporting Document(s) DRUG SCREEN URINE [facility] URINE DRUG SCREEN Amphetamine [Presence] in Urine by Screen method NEGATIVE NORMAL: N EGATIVE [facility] BARBITURATES NEGATIVE NORMAL: NEGATIVE [facility] BENZO NEGATIVE NORMAL: NEGATIVE [facility] COCAINE NEGATIVE NORMAL: NEGATIVE [facility] Tetrahydrocannabinol [Presence] in Urine NEGATIVE NORMAL: NEGATIVE [facility] OPIATES NEGATIVE NORMAL: NEGATIVE [facility] Phencyclidine [Presence] in Urine by Screen method NEGATIVE NOR MAL: NEGATIVE [facility] \\BLDo\\URINE DRUG SCR EEN INTERPRETATION\\BLDx\\ THE CUTOFFF LEVELS FOR DETECTION ARE FOLLOWS: AMPHETAMINES 1000 ng/ml BARBITUARATES 200 ng/ml BENZODIAZEPINES 100 ng/ml THC 50 ng/ml PHENCYCLIDINE 25 ng/ml OPIATES 300 ng/ml COCAINE 300 ng/ml ALL POSITIVES ARE CONSIDERED PRESUMPTIVE POSITIVE CONFIRMATION WILL BE PERFORMED AT PHYSICIAN REQUEST. ID Date Data Source [id number] 03/02/2020 04:20:00 PM EDT [facility] Value Range Interpretation Code Description Data Lili rce(s) Supporting Document(s) Lactate [Moles/volume] in Serum or Plasma 1.6 MMOL/L 0.2 - 2.2 [facility] ID Date Data Source [id number] 03/02/2020 04:10:00 PM EDT [facility] Name Value Range Interpretation Code Description Data [facility](s) Supporting Document(s) CBC NO DIFF [facility] ital COMPLETE BLOOD COUNT Leukocytes [#/volume] in Blood by Automated count 4.8 10^3/uL 4.2 - 1 1.0 [facility] Erythrocytes [#/volume] in Blood by Automated count 4.69 10^6/uL 4. 20 - 5.40 [facility] Hemoglobin [Mass/volume] in Blood 15.4 g/dL 12.0 - 16.0 [facility] Hematocrit [Volume Fraction] of Blood by Automated count 47.3 % 3 7.0 - 47.0 H [facility] Erythrocyte mean corpuscular volume [Entitic volume] b y Automated count 100.9 fL 81.0 - 101 [facility] Erythrocyte mean corpuscular hemoglobin [Entitic mass] by Automated count 32.8 pg 27.0 - 34.0 [facility] Erythrocyte mean corpuscular hemoglobin concentration [Mass/volume] by Automated count 32.6 g/dL 31.0 - 36.0 [facility] Erythrocyte distribution width [Ratio] by Automated count 12.5 % 11.5 - 14.5 [facility] Platelets [#/volume] in Blood by Automated count 243 10^3/uL 150 - 45 0 [facility] Platelet mean volume [Entitic volume] in Blood by Automated count 10.1 fL 7.4 - 10.4 [facility] ID Date Data Source [id number] 03/02/2020 04:10:00 PM EDT [facility] Name Value Range Interpretation Code Description Data [facility](s) Supporting Document(s) [facility]IS [facility] URINALYSIS SOURCE R [facility] COLOR yellow NORMAL: Yellow [facility] CLARITY clear NORMAL: Clear [facility] Specific gravity of Urine by Test strip 1.010 1.001 - 1.030 [facility] pH 7 5 - 9 [facility] al Glucose [Mass/volume] in Urine by Test strip NORM NORMAL: Negat bertha [facility] Bilirubin.total [Presence] in Urine by Test strip NEG NORMAL: Negative [facility] Ketones [Presence] in Urine by Test strip NEG NORMAL: Negative [facility] Protein [Mass/volume] in Urine by Test strip NEG NORMAL: Negat bertha [facility] Nitrite [Presence] in Urine by Test strip NEG NORMAL: Negative [facility] BLOOD NEG NORMAL: Negative [facility] Leukocyte esterase [Presence] in Urine by Test strip NEG PATRICIO L: Negative [facility] Urobilinogen [Mass/volume] in Urine by Test strip NOR less amanda n 1.0 mg/dL [facility] MICROSCOPIC Not Indicate [facility] ID Date Data Source [id number] 02/11/2020 10:49:00 AM EDT [facility] [address] [place] [address] PHONE: [phone] FAX: [phone] Name .................. : JENNIE Jasso Acct Number.................. : [id number] ROOM. ................. : Number ................... : [id number] Stay type ............. : O/P Discharge Date......... ... : 02/10/20 Admit Date ......... : 02/10/20 Admit Phys .................... : MURRAY MORRIS Date of ....... : 1975 Family Phys ................... : SAUMYA Phone .................. : [phone] Age ................................ : 44 Film# .................. .:[id number] Sex ................................. : F Unsigned transcriptions are preliminary reports and do not represent a medical or legal document MRI BRAIN W/O CONTRAST [id number] COMPLETE:02/10/20 15:02 [facility] [address] (REASON FOR PROCEDURE HEADACHES; ? DEMYELINATING DISEASE [...] for: MURRAY Wiggins via fax Copy for: [address] [place] [address] REC Page 1 of 1 Name Value Range Interpretation Code Description Data Lili rce(s) Supporting Document(s) ID Date Data Source [id number] 02/05/2020 12:49:00 PM EDT [facility] [address] [place] [address] PHONE: [phone] FAX: [phone] Name .................. : JENNIE Jasso Acct Number.................. : [id number] ROOM. ................. : Number ................... : [id number] Stay type ............. : O/P Discharge Date......... ... : 02/04/20 Admit Date ......... : 02/04/20 Admit Phys .................... : MURRAY MORRIS Date of ....... : 1975 Family Phys ................... : SAUMYA Phone .................. : [phone] Age ................................ : 44 Film# .................. .:[id number] Sex ................................. : F Unsigned transcriptions are preliminary reports and do not represent a medical or legal document CT ABD & PELV W/ORAL/IV CONTR [id number] COMPLETE:02/04/20 11:54 71725 (REASON FOR ABDOMEN: HX PROBABLE FIBROMYLAGIA, ABD [...] By ANGEL GERBER MD , 02/05/20 12:49, [facility] Transcribe Initials: DAINA , Transcribe Date: 02/04/20 17:09, Dictation Date: Page 1 of 2 [place] [address] PHONE: [phone] FAX: [phone] Name .................. : JENNIE Jasso Acct Number.................. : [id number] ROOM. ................. : MR Number ................... : [id number] Stay type ............. : O/P Discharge Date......... ... : 02/04/20 Admit Date ......... : 02/04/20 Admit Phys .................... : MURRAY ARTURO Date of ....... : 1975 Family Phys ................... : SAUMYA Phone .................. : [phone] Age ................................ : 44 Film# .................. .:[id number] Sex ................................. : F Unsigned transcriptions are preliminary reports and do not represent a medical or legal document CT ABD & PELV W/ORAL/IV CONTR [id number] COMPLETE:02/04/20 11:54 01067 (REASON FOR ABDOMEN: HX PROBABLE FIBROMYLAGIA, ABD [...] is a current smoker, smokes every day [facility] ( [facility]) Vital Signs ID Date Data Source UNK Name Value Range Interpretation Code Description Data Source(s) Oxygen saturation in Arterial blood by Pulse oximetry 98 % 98 % [facility] ([facility]) Body temperature 35.7 Marya 35.7 Marya [facility] ( [facility]) Body temperature 96.3 [degF] 96.3 [degF] [facility] ([facility]) Heart rate 95 /min 95 /min [facility] ([facility]) Diastolic blood pressure 60 mm[Hg] 60 mm[Hg] [facility] ([facility]) Systolic blood pressure 98 mm[Hg] 98 mm[Hg] M [facility] ([facility]) Body mass index (BMI) [Ratio] 15.0 kg/m2 15.0 k g/m2 [facility] ([facility]) Body weight 86.00 [lb_av] 86.00 [lb_av] [facility] ([facility]) Body height 63.50 [in_i] 63.50 [in_i] [facility] ([facility]) 5'3.50" Oxygen saturation in Arterial blood by Pulse oximetry 98 % 98 % [facility] ([facility] ) Body mass index (BMI) [Ratio] 20.2 kg/m2 20.2 k g/m2 [facility] ([facility] ) Body weight 114.38 [lb_av] 114.38 [lb_av] MED[facility] T ([facility] ) Body height 63.1 [in_i] 63.1 [in_i] [facility] ([facility] ) 5'3.10" Heart rate 84 /min 84 /min [facility] ([facility] ) Diastolic blood pressure 64 mm[Hg] 64 mm[Hg] [facility] ([facility] ) Systolic blood pressure 110 mm[Hg] 110 mm[Hg] M [facility]ENT ([facility]) Body weight 51.710 kg 51.710 kg [facility] ([facility], ) Body mass index (BMI) [Ratio] 20.2 kg/m2 20.2 k g/m2 [facility] ([facility], ) Body weight 114.00 [lb_av] 114.00 [lb_av] MED[facility] T ([facility], ) Body height 63 [in_i] 63 [in_i] [facility] ([facility], ) 5'3" Diastolic blood pressure 65 mm[Hg] 65 mm[Hg] [facility] ([facility], ) Systolic blood pressure 111 mm[Hg] 111 mm[Hg] M EDENT ([facility], ) Diastolic blood pressure 72 mm[Hg] 72 mm[Hg] eCW1 ([facility]) Systolic blood pressure 105 mm[Hg] 105 mm[Hg] e CW1 ([facility]) Body temperature 100.0 [degF] 100.0 [degF] eCW1 ([facility]) Respiratory rate 22 /min 22 /min eCW1 ([facility]) Heart rate 97 /min 97 /min eCW1 ([facility]) Body mass index (BMI) [Ratio] 25.78 kg/m2 25.78 kg/m2 eC1 ([facility]) Body height 53 [in_us] 53 [in_us] eCW1 ([facility]) Body weight Measured 103 [lb_av] 103 [lb_av] eC W1 ([facility]) Patient Treatment Plan of Care Planned Activity Planned Date Details Description Data Source (s) 200 ACTUAT Albuterol 0.09 MG/ACTUAT Metered Dose Inhal er [ProAir] 07/07/2019 12:00:00 AM EST eCW1 ([facility])
[2020-06-14] MEDS ORDERED: ISOVUE-370 76% 100ML VIAL As Ordered ONE (19:19)
[2020-06-14 20:05] LABS: BLOOD UREA NITROGEN 5 MG/DL (7-18); CARBON DIOXIDE LEVEL 29 MEQ/L (21-32); CHLORIDE LEVEL 107 MEQ/L (98-107); CREATININE FOR GFR 0.48 MG/DL (0.55-1.30); GLOMERULAR FILTRATION RATE > 60.0 (>58); GLUCOSE, FASTING 68 MG/DL (70-100); SODIUM LEVEL 142 MEQ/L (136-145)
[2020-06-14 20:06] LABS: ALBUMIN 3.7 GM/DL (3.2-5.2); ALT/SGPT 19 U/L (12-78); BILIRUBIN,DIRECT < 0.1 MG/DL (0.0-0.2); BILIRUBIN,TOTAL 0.3 MG/DL (0.2-1.0); CALCIUM LEVEL 8.3 MG/DL (8.5-10.1); CK-MB VALUE MASS 3.6 NG/ML (<3.6); CPK CREATINE PHOSPHOKINASE 122 U/L (26-192); LIPASE 162 U/L (73-393); MB/CK RELATIVE INDEX 2.95 (< OR =4); TOTAL PROTEIN 5.8 GM/DL (6.4-8.2); TROPONIN I < 0.02 NG/ML (< 0.10)
--- NOTE | 2020-06-14 20:43 | REPVR ---
PROCEDURE INFORMATION: Exam: CT Abdomen And Pelvis With Contrast Exam date and time: 06/14/2020 7:58 PM Age: 44 years old Clinical indication: Abdominal pain; Generalized; Additional info: Generalized abd pain/weight loss TECHNIQUE: Imaging protocol: Computed tomography of the abdomen and pelvis with intravenous contrast. Radiation optimization: All CT scans at this facility use at least one of these dose optimization techniques: automated exposure control; mA and/or kV adjustment per patient size (includes targeted exams where dose is matched to clinical indication); or iterative reconstruction. Contrast material: ISOVUE 370; Contrast volume: 100 ml; Contrast route: INTRAVENOUS (IV); COMPARISON: CT ABD/PEL W/PO CONTRAST ONLY 01/03/2018 9:08 AM FINDINGS: Liver: Normal. No mass. Gallbladder and bile ducts: Normal. No calcified stones. No ductal dilation. Pancreas: Normal. No ductal dilation. Spleen: Normal. No splenomegaly. Adrenal glands: Normal. No mass. Kidneys and ureters: Normal. No hydronephrosis. Stomach and bowel: The colon is distended with a very large amount of fecal material. Appendix: No evidence of appendicitis. Intraperitoneal space: Unremarkable. No free air. No significant fluid collection. Vasculature: Unremarkable. No abdominal aortic aneurysm. Lymph nodes: Unremarkable. No enlarged lymph nodes. Urinary bladder: Unremarkable as visualized. Reproductive: Mild adnexal varices. Uterus and adnexa are otherwise unremarkable. Bones/joints: Bilateral pars defects at L5-S1. Normal alignment. Soft tissues: Unremarkable. IMPRESSION: 1. Constipation. 2. Mild bilateral adnexal varices. 3. 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 Electronically signed by: Chuy Kumar On 06/14/2020 20:43:13 PM
[2020-06-14] MEDS ORDERED: FLEET OIL RETENTION ENEMA PR STA (22:00)
[2020-06-14] MEDS ORDERED: [UNRECOGNIZED DRUG - CODE] RC (22:06)
[2020-06-14] MEDS ORDERED: MIRA3350 PO (22:06)
[2020-06-14 22:22] VITALS: BP 110/72
--- NOTE | 2020-06-15 09:01 | ECGEPIP ---
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
== END 2020-06-14 22:41 | disposition home or self-care (01) ==
LOC: M ED 16:15
DX: R11.10 Vomiting, unspecified (principal); K59.00 Constipation, unspecified; H92.09 Otalgia, unspecified ear; R63.4 Abnormal weight loss; F17.210 Nicotine dependence, cigarettes, uncomplicated
CPT/HCPCS: 36415; 74177; 80047; 80048; 80076; 81001; 82550; 82553; 83605; 83690; 84484; 84702; 85025; 87040; 87631; 93005; 96360; 96361; 99284; J3411; Q9967

== ENCOUNTER 2020-12-16 14:42 | Emergency (ER) | payer OTHER ==
[~2020-12-16] VITALS: Ht 160 cm; Wt 39.7 kg
[~2020-12-16 14:42] MED LIST changes: +MIRA3350 PO; +[UNRECOGNIZED DRUG - CODE] RC
--- NOTE | 2020-12-16 15:27 | REP ---
INDICATION: left rib pain. COMPARISON: Multiple latest 07/07/2019 go technique PA and lateral FINDINGS: The lung carbajal are hyperexpanded status quo. Linear fibrotic changes are noted in the lung bases status quo. The cardiomediastinal silhouette is stable. There are no new abnormal opacities. There is no change in the osseous structures. No evidence of a left rib fracture seen on this chest x-ray. IMPRESSION: Chronic changes as described above. <Electronically signed by Omer Weeks > 12/16/20 [id number]
[2020-12-16] MEDS ORDERED: IBUP80TA PO (16:27)
[2020-12-16] MEDS ORDERED: AMOX500C (16:27)
[2020-12-16] MEDS ORDERED: GABA-1171 (16:27)
[2020-12-16] MEDS ORDERED: MULTTAB61 (16:27)
[2020-12-16] MEDS ORDERED: HYDR-3713 (16:27)
[2020-12-16] MEDS ORDERED: PRED20TA PO (18:03)
[2020-12-16] MEDS ORDERED: VENTAER INH (18:03)
[2020-12-16 18:16] VITALS: BP 103/78
== END 2020-12-16 18:22 | disposition home or self-care (01) ==
LOC: M ED 14:42
DX: J20.9 Acute bronchitis, unspecified (principal); M94.0 Chondrocostal junction syndrome [Tietze]; F17.200 Nicotine dependence, unspecified, uncomplicated

== ENCOUNTER 2021-04-26 05:21 | Emergency (ER) | payer OTHER ==
[~2021-04-26] VITALS: Ht 160 cm; Wt 45.5 kg
[2021-04-26 05:21] VITALS: BP 118/67
[~2021-04-26 05:21] MED LIST changes: +AMOX500C; +GABA-1171; +HYDR-3713; +IBUP80TA PO; +MULTTAB61; +PRED20TA PO
[2021-04-26] MEDS ORDERED: BACITRACIN OINTMENT 30GM TUBE TOP STA (07:45)
== END 2021-04-26 08:20 | disposition home or self-care (01) ==
LOC: M ED 05:21
DX: T24.231A Burn of second degree of right lower leg, initial encounter (principal); T31.0 Burns involving less than 10% of body surface; Y92.008 Other place in unspecified non-institutional (private) residence as the place of occurrence of the external cause; Y93.9 Activity, unspecified; Y99.9 Unspecified external cause status; Y27.2XXA Contact with hot fluids, undetermined intent, initial encounter; F17.200 Nicotine dependence, unspecified, uncomplicated; X10.1XXA Contact with hot food, initial encounter

== ENCOUNTER → 2021-11-16 | Outpatient (CLI) | payer OTHER ==
[~2021-11-16] MED LIST changes: -GNPLIQ60 PO; +GNPLIQ67 PO
[2021-11-16 15:09] LABS: RHEUMATOID FACTOR QUANT < 10.0 IU/ML (<15.0)
== END ==
LOC: M LAB 11:18
PROVIDERS: ATTEND Psychiatry & Neurology Neurology
DX: G62.9 Polyneuropathy, unspecified (principal); M32.9 Systemic lupus erythematosus, unspecified

== ENCOUNTER → 2022-08-17 | Outpatient (CLI) | payer OTHER ==
[2022-08-17 19:22] LABS: BASO # 0.1 10^3/uL (0.0-0.2); BASO % 1.2 % (0.0-1.0); EOS # 0.1 10^3/uL (0.0-0.5); EOS % 3.3 % (0.0-3.0); HEMATOCRIT 47.1 % (36.0-47.0); LYMPH # 1.2 10^3/uL (1.5-5.0); LYMPH % 29.5 % (24.0-44.0); MEAN CORPUSCULAR HEMOGLOBIN 32.2 pg (27.0-33.0); MEAN CORPUSCULAR HGB CONC 31.8 g/dl (32.0-36.5); MEAN CORPUSCULAR VOLUME 101.1 fl (80.0-96.0); MONO # 0.2 10^3/uL (0.0-0.8); MONO % 5.2 % (2.0-8.0); NEUTROPHILS # 2.6 10^3/uL (1.5-8.5); NEUTROPHILS % 60.8 % (36.0-66.0); PLATELET COUNT, AUTOMATED 257 10^3/uL (150-450); RED BLOOD COUNT 4.66 10^6/uL (4.00-5.40); WHITE BLOOD COUNT 4.2 10^3/uL (4.0-10.0)
[2022-08-17 19:29] LABS: ERYTHROCYTE SEDIMENTATION RATE 8 mm/hr (0-20)
[2022-08-17 19:48] LABS: C REACTIVE PROTEIN QUANTITATIV < 0.40 MG/DL (<1.0)
[2022-08-17 19:52] LABS: TOTAL 25(OH) VITAMIN D 8.2 NG/ML (20.0-100.0)
== END ==
LOC: M LAB 17:45
PROVIDERS: ATTEND Internal Medicine
DX: E55.9 Vitamin D deficiency, unspecified (principal)